=== PATIENT | female | born 1960 | race African-American/Black ===

== ENCOUNTER → 2016-09-25 | Outpatient (CLI) | payer OTHER, MEDICARE | LOC: WI 13:01 | PROVIDERS: ATTEND Physician Assistant | DX: N64.4 Mastodynia (principal) | CPT/HCPCS: 76642; G0204; 77066 ==

== ENCOUNTER 2017-06-23 12:52 | Emergency (ER) | payer OTHER, MEDICARE ==
--- NOTE | 2017-06-23 13:21 | ER Document Report ---
ED Medical Screen (RME) - General Chief Complaint: Shortness Of Breath Stated Complaint: COUGH Time Seen by Provider: 06/23/17 13:13 Notes: This 57-year-old female patient comes emergency room with one-week history of worsening shortness of breath, bloody mucus, pain in the left inferior anterolateral aspect of her chest on breathing. She reports she started with a cloudy sputum that has become bloody. She was seen at an urgent care and told come to the emergency room for evaluation. Her past history includes primary sclerosing cholangitis, rheumatoid arthritis, osteoarthritis, and asthma. She denies being on any antiplatelet medications or blood thinners. She reports she is on several medications but can only remember the names of a few of them. I have greeted and performed a rapid initial assessment of this patient. A comprehensive ED assessment and evaluation of the patient, analysis of test results and completion of the medical decision making process will be conducted by additional ED providers. TRAVEL OUTSIDE OF THE [place] IN LAST 30 DAYS: No - Related Data Allergies/Adverse Reactions: metronidazole [From Flagyl] Allergy (Verified 06/23/17 12:53) Metronidazole HCl [From Flagyl] Allergy (Verified 06/23/17 12:53) propoxyphene napsylate [From Darvocet-N 100] Allergy (Verified 06/23/17 12:53) Past Medical History - Past Medical History Cardiac Medical History: Reports: Hx Hypercholesterolemia Pulmonary Medical History: Reports: Hx Asthma Renal/ Medical History: Denies: Hx Peritoneal Dialysis GI Medical History: Reports: Hx Liver Failure Musculoskeltal Medical History: Reports Hx Arthritis - RA, OA Past Surgical History: Reports: Hx Hysterectomy - partial - Immunizations Hx Diphtheria, Pertussis, Tetanus Vaccination: No Physical Exam - Vital signs Vitals: Temp Pulse Resp BP Pulse Ox 98.2 F 99 16 135/89 H 100 06/23/17 13:05 06/23/17 13:05 06/23/17 13:05 06/23/17 13:05 06/23/17 13:05 Course - Vital Signs Vital signs: Temp Pulse Resp BP Pulse Ox 98.2 F 99 16 135/89 H 100 06/23/17 13:05 06/23/17 13:05 06/23/17 13:05 06/23/17 13:05 06/23/17 13:05
--- NOTE | 2017-06-23 13:57 | RADIOLOGY REPORT (SQ) ---
EXAM DESCRIPTION: CHEST PA/LAT COMPLETED DATE/TIME: 06/23/2017 1:48 pm REASON FOR STUDY: Left barrett-lateral inferior pleuritic chest pain COMPARISON: CT chest 04/09/2016 Two-view chest 03/29/2015 EXAM PARAMETERS: NUMBER OF VIEWS: two views TECHNIQUE: Digital Frontal and Lateral radiographic views of the chest acquired. RADIATION DOSE: NA LIMITATIONS: none FINDINGS: LUNGS AND PLEURA: No opacities, masses or pneumothorax. No pleural effusion. MEDIASTINUM AND HILAR STRUCTURES: No masses or contour abnormalities. HEART AND VASCULAR STRUCTURES: Heart normal size. No evidence for failure. BONES: Osteopenic, no acute changes HARDWARE: Endoscopically placed biliary stent in the right upper quadrant OTHER: No other significant finding. IMPRESSION: NO SIGNIFICANT RADIOGRAPHIC FINDING IN THE CHEST. TECHNICAL DOCUMENTATION: JOB ID: [id number] [employer]- All Rights Reserved
[2017-06-23 14:33] LABS: ABSOLUTE EOSINOPHILS # (AUTO) 0.4 10^3/uL (0.0-0.6); ABSOLUTE LYMPHOCYTES (AUTO) 1.2 10^3/uL (0.5-4.7); ABSOLUTE MONOCYTES (AUTO) 0.6 10^3/uL (0.1-1.4); ABSOLUTE NEUT (AUTO) 4.2 10^3/uL (1.7-8.2); BASOPHILS % (AUTO) 0.7 % (0-2); EOSINOPHILS % (AUTO) 6.8 % (0-6); HEMATOCRIT 39.6 % (36.0-47.0); HEMOGLOBIN 13.8 g/dL (12.0-15.5); HGB HCT DIFFERENCE 1.8; LYMPHOCYTES % (AUTO) 18.4 % (13-45); MEAN CORPUSCULAR HEMOGLOBIN 29.4 pg (27.0-33.4); MEAN CORPUSCULAR HGB CONC 34.9 g/dL (32.0-36.0); MEAN CORPUSCULAR VOLUME 85 fl (80-97); MONOCYTES % (AUTO) 9.7 % (3-13); RED BLOOD COUNT 4.69 10^6/uL (3.72-5.28); RED CELL DISTRIBUTION WIDTH 16.4 % (11.5-14.0); SEGMENTED NEUTROPHILS % (AUTO) 64.4 % (42-78); WHITE BLOOD COUNT 6.6 10^3/uL (4.0-10.5)
[2017-06-23 14:35] LABS: PROTHROMBIN TIME 14.1 SEC (11.4-15.4)
[2017-06-23 14:38] LABS: D-DIMER 2.38 ug/mL (0.00-0.50)
[2017-06-23 14:59] LABS: ALANINE AMINOTRANSFERASE 18 U/L (9-52); ALBUMIN 4.2 g/dL (3.5-5.0); ALKALINE PHOSPHATASE 423 U/L (38-126); ANION GAP 14 (5-19); ASPARTATE AMINO TRANSFERASE 54 U/L (14-36); BILIRUBIN,DIRECT 1.1 mg/dL (0.0-0.4); BILIRUBIN,TOTAL 1.8 mg/dL (0.2-1.3); BLOOD UREA NITROGEN 8 mg/dL (7-20); CALCIUM 9.5 mg/dL (8.4-10.2); CARBON DIOXIDE 23 mmol/L (22-30); CHLORIDE 107 mmol/L (98-107); CREATININE RESULT 0.87 mg/dL (0.52-1.25); GLUCOSE 82 mg/dL (75-110); MAGNESIUM 1.9 mg/dL (1.6-2.3); POTASSIUM 3.7 mmol/L (3.6-5.0); TOTAL PROTEIN 10.3 g/dL (6.3-8.2)
--- NOTE | 2017-06-23 15:42 | ER Document Report ---
ED General - General Chief Complaint: Shortness Of Breath Stated Complaint: COUGH Time Seen by Provider: 06/23/17 13:13 Mode of Arrival: Ambulatory Information source: Patient Notes: 57-year-old female history of asthma presents with complaints of cough shortness of breath. Patient notes she has been coughing for years has seen a investor relations specialist for this. Notes over the past week her white thick mucus has worsened and is now blood-tinged. Patient denies any fevers or chills denies any nausea vomiting or diarrhea Patient admits that it hurts in the left lower lobe TRAVEL OUTSIDE OF THE [place] IN LAST 30 DAYS: No - HPI Onset: Last week Onset/Duration: Worse Quality of pain: Sharp Severity: Mild Pain Level: 1 Associated symptoms: Productive cough, Shortness of breath Exacerbated by: Denies Relieved by: Denies Similar symptoms previously: Yes Recently seen / treated by doctor: Yes - Related Data Allergies/Adverse Reactions: metronidazole [From Flagyl] Allergy (Verified 06/23/17 12:53) Metronidazole HCl [From Flagyl] Allergy (Verified 06/23/17 12:53) propoxyphene napsylate [From Darvocet-N 100] Allergy (Verified 06/23/17 12:53) Past Medical History - Social History Smoking Status: Former Smoker Cigarette use (# per day): No Chew tobacco use (# tins/day): No Smoking Education Provided: No Family History: None, Reviewed & Not Pertinent Patient has suicidal ideation: No Patient has homicidal ideation: No - Past Medical History Cardiac Medical History: Reports: Hx Hypercholesterolemia Pulmonary Medical History: Reports: Hx Asthma Renal/ Medical History: Denies: Hx Peritoneal Dialysis GI Medical History: Reports: Hx Liver Failure Musculoskeltal Medical History: Reports Hx Arthritis - RA, OA Past Surgical History: Reports: Hx Hysterectomy - partial - Immunizations Hx Diphtheria, Pertussis, Tetanus Vaccination: No Hx Pneumococcal Vaccination: 07/08/10 Review of Systems - Review of Systems Notes: REVIEW OF SYSTEMS: CONSTITUTIONAL : Denies fever, chills, or sweats. Denies recent illness. EENT: Denies eye, ear, throat, or mouth pain or symptoms. Denies nasal or sinus congestion or discharge. Denies throat, tongue, or mouth swelling or difficulty swallowing. CARDIOVASCULAR: Denies chest pain. Denies palpitations or racing or irregular heart beat. Denies ankle edema. RESPIRATORY: Admits to cough shortness of breath bloody sputum GASTROINTESTINAL: Denies abdominal pain or distention. Denies nausea, vomiting , or diarrhea. Denies blood in vomitus, stools, or per rectum. Denies black, tarry stools. Denies constipation. GENITOURINARY: Denies difficulty urinating, painful urination, burning, frequency, blood in urine, or discharge. FEMALE GENITOURINARY: Denies vaginal bleeding, heavy or abnormal periods, irregular periods. Denies vaginal discharge or odor. MUSCULOSKELETAL: Denies back or neck pain or stiffness. Denies joint pain or swelling. SKIN: Denies rash, lesions or sores. HEMATOLOGIC : Denies easy bruising or bleeding. LYMPHATIC: Denies swollen, enlarged glands. NEUROLOGICAL: Denies confusion or altered mental status. Denies passing out or loss of consciousness. Denies dizziness or lightheadedness. Denies headache. Denies weakness or paralysis or loss of use of either side. Denies problems with gait or speech. Denies sensory loss, numbness, or tingling. Denies seizures. PSYCHIATRIC: Denies anxiety or stress. Denies depression, suicidal ideation, or homicidal ideation. ALL OTHER SYSTEMS REVIEWED AND NEGATIVE. PHYSICAL EXAMINATION: GENERAL: Well-appearing, well-nourished and in no acute distress. HEAD: Atraumatic, normocephalic. EYES: Pupils equal round and reactive to light, extraocular movements intact, conjunctiva are normal. ENT: Nares patent, oropharynx clear without exudates. Moist mucous membranes. NECK: Normal range of motion, supple without lymphadenopathy LUNGS: Breath sounds clear to auscultation bilaterally and equal. No wheezes rales or rhonchi. HEART: Regular rate and rhythm without murmurs ABDOMEN: Soft, nontender, nondistended abdomen. No guarding, no rebound. No masses appreciated. Female : deferred Musculoskeletal: Normal range of motion, no pitting or edema. No cyanosis. NEUROLOGICAL: Cranial nerves grossly intact. Normal speech, normal gait. Normal sensory, motor exams PSYCH: Normal mood, normal affect. SKIN: Warm, Dry, normal turgor, no rashes or lesions noted. Dictation was performed using [employer] voice recognition software Physical Exam - Vital signs Vitals: Temp Pulse Resp BP Pulse Ox 98.2 F 99 16 135/89 H 100 06/23/17 13:05 06/23/17 13:05 06/23/17 13:05 06/23/17 13:05 06/23/17 13:05 Course - Re-evaluation Re-evalutation: 06/23/17 15:41 Lab work imaging noted no significant abnormality, d-dimer however was elevated for a CTA has been ordered. Patient is satting 100% on room air vital signs are completely stable 06/23/17 22:48 Patient CTA was noted to be normal, therefore a very low suspicion for any life- threatening issues, I encouraged the patient to follow with her investor relations specialist, to believe the hemoptysis is from all the coughing and will give her a cough suppressant very strict return precautions After performing a Medical Screening Examination, I estimate there is LOW risk for ACUTE CORONARY SYNDROME, PULMONARY EMBOLI, RESPIRATORY FAILURE, SEPSIS OR MENINGITIS, thus I consider the discharge disposition reasonable. I have reevaluated this patient multiple times and no significant life threatening changes are noted. The patient and I have discussed the diagnosis and risks, and we agree with discharging home with close follow-up. We also discussed returning to the Emergency Department immediately if new or worsening symptoms occur. We have discussed the symptoms which are most concerning (e.g., changing or worsening pain, trouble swallowing or breathing, neck stiffness, fever) that necessitate immediate return. - Vital Signs Vital signs: Temp Pulse Resp BP Pulse Ox 98.2 F 99 20 133/83 H 97 06/23/17 13:05 06/23/17 13:05 06/23/17 17:00 06/23/17 17:00 06/23/17 17:00 - Laboratory Result Diagrams: 06/23/17 14:10 06/23/17 14:10 Laboratory results interpreted by me: 06/23/17 06/23/17 06/23/17 14:10 14:10 14:10 RDW 16.4 H Plt Count 79 L Eosinophils % 6.8 H D-Dimer 2.38 H Total Bilirubin 1.8 H Direct Bilirubin 1.1 H AST 54 H Alkaline Phosphatase 423 H Total Protein 10.3 H - Diagnostic Test Radiology reviewed: Image reviewed, Reports reviewed - No acute abnormal Discharge - Discharge Clinical Impression: Cough, Hemoptysis Condition: Stable Disposition: HOME, SELF-CARE Instructions: Cough Suppressant & Expectorant Medications Additional Instructions: Follow up with your physician tomorrow for further care or return to the ED IMMEDIATELY if symptoms worsen or new concerns occur. If you cannot afford to follow up with your primary care physician a list of low cost clinics have been provided at the end of your discharge papers as well. Prescriptions: Benzonatate [Tessalon Perle 100 mg Capsule] 100 mg PO Q8HP PRN #40 cap PRN Reason:
--- NOTE | 2017-06-23 15:59 | RADIOLOGY REPORT (SQ) ---
EXAM DESCRIPTION: CTA CHEST COMPLETED DATE/TIME: 06/23/2017 3:44 pm REASON FOR STUDY: sob COMPARISON: CT chest 04/09/2016 TECHNIQUE: CT scan of the chest performed using helical scanning technique with dynamic intravenous contrast injection. Images reviewed with lung, soft tissue and bone windows. Reconstructed coronal and sagittal MPR images reviewed. Additional 3 dimensional post-processing performed to develop Maximal Intensity Projection images (PA P). All images stored on PACS. All CT scanners at this facility use dose modulation, iterative reconstruction, and/or weight based d osing when appropriate to reduce radiation dose to as low as reasonably achievable (ALARA). [facility]: Dose Right [facility]: CareDose [facility]: Dose Right [facility]: Teradose 4D [facility]: Blueleaf CONTRAST TYPE AND DOSE: contrast/concentration: Isovue 370.00 mg/ml; Total Contrast Delivered: 74.0 ml; Total Saline Delivered: 110.0 ml Contrast bolus adequate for pulmonary arteries and aorta. RENAL FUNCTION: Creatinine 0.87 RADIATION DOSE: CT Rad equipment meets quality standard of care and radiation dose reduction techniq ues were employed. CTDIvol: 18.5 - 33.1 mGy. DLP: 658 mGy-cm. . LIMITATIONS: None. FINDINGS: LUNGS AND PLEURA: No masses, infiltrates, pneumothorax. No pleural effusions, calcificati ons. AORTA AND GREAT VESSELS: No aneurysm. No aortic dissection. HEART: No pericardial effusion. No significant coronary artery calcifications. PULMONARY ARTERIES: No emboli visualized in the main pulmonary arteries or the segmental branches. HILAR AND MEDIASTINAL STRUCTURES: No identified masses or abnormal nodes. HARDWARE: None in the chest. UPPER ABDOMEN: There is an endoscopically placed biliary stent in place. Stable intrahepatic biliary ductal dilatation on the left than right lobe liver. Single 1 cm calcified stone in the gallbladder . Stable splenomegaly. Small hiatal hernia. THYROID AND OTHER SOFT TISSUES: No masses. No adenopathy. BONES: No acute or significant finding. 3D MIPS: Confirm above findings. OTHER: No other significant finding. IMPRESSION: No CT angio evidence of aortic dissection or acute pulmonary emboli. Endoscopically placed stent in the common bile duct and left hepatic duct unchanged. Stable intrahep atic biliary ductal dilatation, and stable splenomegaly. COMMENT: Quality ID # [id number]: Final reports with documentation of one or more dose reduction techniques (e.g., Automated exposure control, adjustment of the mA and/or kV according to patient size, use of iterative reconstruction technique) TECHNICAL DOCUMENTATION: JOB ID: [id number] [employer]- All Rights Reserved
[2017-06-23 17:26] VITALS: BP 133/83
== END 2017-06-23 17:26 | disposition home or self-care (01) ==
LOC: ER 12:52
DX: R05 Cough (principal); R04.2 Hemoptysis; R06.02 Shortness of breath; Z87.891 Personal history of nicotine dependence
CPT/HCPCS: 36415; 71020; 71275; 80053; 83735; 85025; 85379; 85610; 99285

== ENCOUNTER → 2017-10-08 | Outpatient (CLI) | payer OTHER, MEDICARE ==
--- NOTE | 2017-10-08 12:06 | RADIOLOGY REPORT (SQ) ---
EXAM DESCRIPTION: CHEST PA/LATERAL COMPLETED DATE/TIME: 10/08/2017 11:04 am REASON FOR STUDY: COUGH COMPARISON: 06/23/2017 EXAM PARAMETERS: NUMBER OF VIEWS: two views TECHNIQUE: Digital Frontal and Lateral radiographic views of the chest acquired. RADIATION DOSE: NA LIMITATIONS: none FINDINGS: LUNGS AND PLEURA: No opacities, masses or pneumothorax. No pleural effusion. MEDIASTINUM AND HILAR STRUCTURES: No masses or contour abnormalities. HEART AND VASCULAR STRUCTURES: Heart normal size. No evidence for failure. BONES: No acute findings. HARDWARE: None in the chest. OTHER: No other significant finding. IMPRESSION: NO SIGNIFICANT RADIOGRAPHIC FINDING IN THE CHEST. TECHNICAL DOCUMENTATION: JOB ID: [id number] [employer]- All Rights Reserved Reading location - IP/workstation name: [email or web address]
== END ==
LOC: OD 10:42
PROVIDERS: ATTEND Physician Assistant
DX: R05 Cough (principal)
CPT/HCPCS: 71046

== ENCOUNTER → 2018-01-22 | Outpatient (CLI) | payer OTHER, MEDICARE ==
--- NOTE | 2018-01-22 14:33 | RADIOLOGY REPORT (SQ) ---
EXAM DESCRIPTION: FOOT LEFT COMPLETE COMPLETED DATE/TIME: 01/22/2018 2:14 pm REASON FOR STUDY: PAIN IN LEFT FOOT R10.9 UNSPECIFIED ABDOMINAL PAIN M79.672 PAIN IN LEFT FOOT COMPARISON: None. NUMBER OF VIEWS: Three views. TECHNIQUE: AP, lateral and oblique without weight bearing radiographic images acquired of the left f oot. LIMITATIONS: None. FINDINGS: MINERALIZATION: Normal. BONES: No acute fracture or dislocation. No worrisome bone lesions. No significant osteophytes. JOINTS: No erosions. No kerry-articular osteopenia. No chondrocalcinosis. SOFT TISSUES: No swelling. No calcifications. OTHER: No other significant finding. IMPRESSION: NEGATIVE STUDY OF THE LEFT FOOT. NO EXPLANATION FOR PAIN. TECHNICAL DOCUMENTATION: JOB ID: [id number] [employer]- All Rights Reserved Reading location - IP/workstation name: [email or web address]
[2018-01-22 15:17] LABS: BLOOD UREA NITROGEN 7 mg/dL (7-20); CALCIUM 9.1 mg/dL (8.4-10.2); CARBON DIOXIDE 24 mmol/L (22-30); CHLORIDE 107 mmol/L (98-107); GLUCOSE 85 mg/dL (75-110); SODIUM 145.3 mmol/L (137-145)
[2018-01-22 15:18] LABS: ABSOLUTE EOSINOPHILS # (AUTO) 0.3 10^3/uL (0.0-0.6); ABSOLUTE LYMPHOCYTES (AUTO) 0.9 10^3/uL (0.5-4.7); ABSOLUTE MONOCYTES (AUTO) 0.6 10^3/uL (0.1-1.4); ABSOLUTE NEUT (AUTO) 2.1 10^3/uL (1.7-8.2); ALANINE AMINOTRANSFERASE 28 U/L (9-52); ALBUMIN 3.8 g/dL (3.5-5.0); ALKALINE PHOSPHATASE 337 U/L (38-126); ANION GAP 14 (5-19); ASPARTATE AMINO TRANSFERASE 51 U/L (14-36); BASOPHILS % (AUTO) 0.9 % (0-2); BILIRUBIN,DIRECT 1.5 mg/dL (0.0-0.4); BILIRUBIN,TOTAL 2.2 mg/dL (0.2-1.3); C-REACTIVE PROTEIN 20.4 mg/L (<10.0); EOSINOPHILS % (AUTO) 8.6 % (0-6); HEMATOCRIT 38.4 % (36.0-47.0); HEMOGLOBIN 13.3 g/dL (12.0-15.5); LYMPHOCYTES % (AUTO) 23.3 % (13-45); MEAN CORPUSCULAR HEMOGLOBIN 30.6 pg (27.0-33.4); MEAN CORPUSCULAR HGB CONC 34.6 g/dL (32.0-36.0); MEAN CORPUSCULAR VOLUME 88 fl (80-97); MONOCYTES % (AUTO) 14.1 % (3-13); RED BLOOD COUNT 4.35 10^6/uL (3.72-5.28); RED CELL DISTRIBUTION WIDTH 17.6 % (11.5-14.0); SEGMENTED NEUTROPHILS % (AUTO) 53.1 % (42-78); TOTAL CELLS COUNTED % (AUTO) 100 %; TOTAL PROTEIN 9.9 g/dL (6.3-8.2)
[2018-01-22 15:49] LABS: ERYTHROCYTE SEDIMENTATION RATE 98 mm/hr (0-30)
[2018-01-22 15:59] LABS: PLATELET COUNT 64 10^3/uL (150-450)
--- NOTE | 2018-01-22 17:19 | RADIOLOGY REPORT (SQ) ---
EXAM DESCRIPTION: CT ABD/PELVIS WITH IV ORAL COMPLETED DATE/TIME: 01/22/2018 4:55 pm REASON FOR STUDY: UNSPECIFIED ABDOMINAL PAIN R10.9 UNSPECIFIED ABDOMINAL PAIN M79.672 PAIN IN LEFT FOOT COMPARISON: 2014. TECHNIQUE: CT scan of the abdomen and pelvis performed with intravenous and oral contrast using teo maurisio scanning technique with dynamic intravenous contrast injection. Images reviewed with lung, soft t issue, and bone windows. Reconstructed coronal and sagittal MPR images reviewed. Delayed images for e valuation of the urinary system also acquired. All images stored on PACS. All CT scanners at this facility use dose modulation, iterative reconstruction, and/or weight based d osing when appropriate to reduce radiation dose to as low as reasonably achievable (ALARA). [facility]: Dose Right [facility]: CareDose [facility]: Dose Right [facility]: Teradose 4D [facility]: [employer] CONTRAST TYPE AND DOSE: contrast/concentration: Isovue 370.00 mg/ml; Total Contrast Delivered: 93.0 ml; Total Saline Delivered: 59.1 ml RENAL FUNCTION: Creatinine 1.0 RADIATION DOSE: CT Rad equipment meets quality standard of care and radiation dose reduction techniq ues were employed. CTDIvol: 13.0 - 15.1 mGy. DLP: 1431 mGy-cm.. LIMITATIONS: None. FINDINGS: LOWER CHEST: No significant findings. No nodules or infiltrates. LIVER: Chronic duct dilatation in the left hepatic lobe particularly. Mild extension into the right hepatic lobe. The degree of duct dilation looks slightly progressive overall compared to 2015. No d iscrete liver parenchymal lesions are detected. SPLEEN: 16 cm craniocaudal dimension, enlarged. No mass. PANCREAS: No masses. No significant calcifications. No adjacent inflammation or peripancreatic fluid collections. Pancreatic duct not dilated. GALLBLADDER: Mild distention. At least 1 small calcified stone. No wall thickening or pericholecyst ic fluid suggested. No evidence of common duct distention or stones. ADRENAL GLANDS: No significant masses or asymmetry. RIGHT KIDNEY AND URETER: No solid masses. No significant calcification. No hydronephrosis or hydroure ter. LEFT KIDNEY AND URETER: No solid masses. No significant calcification. No hydronephrosis or hydrouret er. AORTA AND VESSELS: No aneurysm. No dissection. Renal arteries, SMA, celiac without stenosis. RETROPERITONEUM: No retroperitoneal adenopathy, hemorrhage or masses. BOWEL AND PERITONEAL CAVITY: No obstruction. No visualized masses. No free fluid. No inflammatory ch anges or thickening of bowel wall. APPENDIX: Not visualized. PELVIS: No significant masses. Normal bladder. No free fluid. ABDOMINAL WALL: No masses. No hernias. BONES: No significant or acute findings. OTHER: No other significant finding. IMPRESSION: 1. Predominantly left intrahepatic bile duct dilatation. Chronicity suggests underlyin g "Benign" etiology. No calcified obstructing duct stones. No large pancreatic or liver or gallblad rosa maria mass detected. Inflammatory and infectious etiologies including primary sclerosing cholangitis a nd recurrent pyogenic cholangitis are possible. The patient has had past biliary instrumentation and stenting (noted on prior studies), presumably such diagnoses have been addressed previously. 2. Sp lenomegaly. This looks new compared to 2015. TECHNICAL DOCUMENTATION: JOB ID: [id number] Quality ID # [id number]: Final reports with documentation of one or more dose reduction techniques (e.g., Au tomated exposure control, adjustment of the mA and/or kV according to patient size, use of iterative reconstruction technique) 2010 [employer]- All Rights Reserved Reading location - IP/workstation name: [email or web address]
== END ==
LOC: RAD 13:43
PROVIDERS: ATTEND Physician Assistant
DX: M79.672 Pain in left foot (principal); R10.9 Unspecified abdominal pain
CPT/HCPCS: 36415; 74177; 80053; 85025; 85652; 86140

== ENCOUNTER 2018-03-02 20:08 | Emergency (ER) | payer OTHER, MEDICARE ==
--- NOTE | 2018-03-02 21:22 | ER Document Report ---
ED Extremity Problem, Upper - General Chief Complaint: Arm Pain Stated Complaint: LEFT ARM PAIN Time Seen by Provider: 03/02/18 21:07 Mode of Arrival: Ambulatory Information source: Patient Notes: 57-year-old female presents to ED for complaint of left wrist pain. She states has been hurting for a week but got much worse tonight when she was found to like the grill and she twisted her wrist and she heard a crack. Patient states the pain is much worse than it usually is. She has rheumatoid and osteoarthritis. Patient is alert and oriented respirations regular and unlabored speaking with full human voice and walks with a even steady gait. TRAVEL OUTSIDE OF THE [place] IN LAST 30 DAYS: No - HPI Patient complains to provider of: Left, Wrist Onset: This evening Recent injury: Yes Where: Home, Outdoors Quality of pain: Sharp, Throbbing Severity of pain: Severe, Constant Pain Level: 5 Context: Other - Stated she has had pain all week then tonight she turned her wrist while she was lighting a grill and she heard a crack and then severe pain Associated symptoms: None Exacerbated by: Movement, Exertion Relieved by: Nothing Similar symptoms previously: No Recently seen / treated by doctor: No - Related Data Allergies/Adverse Reactions: metronidazole [From Flagyl] Allergy (Verified 06/23/17 12:53) Metronidazole HCl [From Flagyl] Allergy (Verified 06/23/17 12:53) propoxyphene napsylate [From Darvocet-N 100] Allergy (Verified 06/23/17 12:53) Past Medical History - General Information source: Patient - Social History Smoking Status: Never Smoker Cigarette use (# per day): No Chew tobacco use (# tins/day): No Smoking Education Provided: No Frequency of alcohol use: None Drug Abuse: None Occupation: Customer service Lives with: Family Family History: None, Reviewed & Not Pertinent Patient has suicidal ideation: No Patient has homicidal ideation: No - Past Medical History Cardiac Medical History: Reports: Hx Hypercholesterolemia Pulmonary Medical History: Reports: Hx Asthma EENT Medical History: Reports: None Neurological Medical History: Reports: None Endocrine Medical History: Reports: None Renal/ Medical History: Reports: None Malignancy Medical History: Reports: None GI Medical History: Reports: Hx Cirrhosis, Hx Gastroesophageal Reflux Disease, Hx Liver Failure, Hx Colonoscopy, Hx Endoscopy Musculoskeletal Medical History: Reports Hx Arthritis - RA, OA, Reports Hx Musculoskeletal Deformity, Reports Hx Musculoskeletal Trauma Skin Medical History: Reports None Psychiatric Medical History: Reports: None Traumatic Medical History: Reports: Hx Fractures - Fifth toe left ulnar Infectious Medical History: Reports: None Past Surgical History: Reports: Hx Breast Surgery - Right breast biopsy, Hx Hysterectomy - partial, Hx Oral Surgery - Immunizations Hx Diphtheria, Pertussis, Tetanus Vaccination: No Hx Pneumococcal Vaccination: 07/08/10 Review of Systems - Review of Systems Constitutional: No symptoms reported EENT: No symptoms reported Cardiovascular: No symptoms reported Respiratory: No symptoms reported Gastrointestinal: No symptoms reported Genitourinary: No symptoms reported Female Genitourinary: No symptoms reported Musculoskeletal: Other - Left wrist pain and swelling Skin: No symptoms reported Hematologic/Lymphatic: No symptoms reported Neurological/Psychological: No symptoms reported -: Yes All other systems reviewed and negative Physical Exam - Vital signs Vitals: Temp Pulse Resp BP Pulse Ox 98.3 F 92 16 123/76 100 03/02/18 20:39 03/02/18 20:39 03/02/18 20:39 03/02/18 20:39 03/02/18 20:39 Interpretation: Normal - General General appearance: Appears well, Alert - HEENT Head: Normocephalic, Atraumatic Eyes: Normal Pupils: PERRL - Respiratory Respiratory status: No respiratory distress Chest status: Nontender Breath sounds: Normal Chest palpation: Normal - Cardiovascular Rhythm: Regular Heart sounds: Normal auscultation Murmur: No - Abdominal Inspection: Normal Distension: No distension Bowel sounds: Normal Tenderness: Nontender Organomegaly: No organomegaly - Back Back: Normal, Nontender - Extremities General upper extremity: Normal temperature General lower extremity: Normal inspection, Nontender, Normal color, Normal ROM , Normal temperature, Normal weight bearing. No: Anneliese's sign Wrist: Tender, Axial load of thumb pain, Limited ROM - Due to pain. No: Abrasion, Deformity, Dislocation, Ecchymosis, Instability, Laceration Hand: Tender, No evidence of human bite, No evidence of FB - Neurological Neuro grossly intact: Yes Cognition: Normal Orientation: AAOx4 Bandy Coma Scale Eye Opening: Spontaneous Annel Coma Scale Verbal: Oriented Annel Coma Scale Motor: Obeys Commands Bandy Coma Scale Total: 15 Speech: Normal Motor strength normal: LUE, RUE, LLE, RLE Sensory: Normal - Psychological Associated symptoms: Normal affect, Normal mood - Skin Skin Temperature: Warm Skin Moisture: Dry Skin Color: Normal Course - Re-evaluation Re-evalutation: 03/03/18 02:21 Patient has a distal fractured ulnar on her x-ray. X-ray discussed with patient and daughter and written report of x-ray given to patient for follow-up with orthopedics. Patient was treated with a ulnar gutter splint and a sling and discharged home. Patient verbalized understanding and agreement with treatment plan. - Vital Signs Vital signs: Temp Pulse Resp BP Pulse Ox 98.0 F 83 16 123/72 96 03/02/18 23:31 03/02/18 23:31 03/02/18 23:31 03/02/18 23:31 03/02/18 23:31 - Diagnostic Test Radiology reviewed: Image reviewed, Reports reviewed Procedures - Immobilization Left Wrist Time completed: 23:10 Immobilizer type: Ulnar, Sling Performed by: PCT Post-Proc Neuro Vasc Exam: Normal Alignment checked and good: Yes Discharge - Discharge Clinical Impression: Distal end of ulna fracture, closed Qualifiers: Encounter type: initial encounter Fracture morphology: unspecified fracture morphology Laterality: left Qualified Code(s): S52.602A - Unspecified fracture of lower end of left ulna, initial encounter for closed fracture Condition: Stable Disposition: HOME, SELF-CARE Additional Instructions: Fracture You have a fracture. The typical broken bone requires only protection and sufficient time for healing. "Setting" is necessary only if the bones are crooked or out of position. The physician will re-assess you periodically to make certain that the bone heals without complications. It's important that you follow the instructions given you. The initial treatment is immobilization, elevation of the injury, and cold packs. Not all fractures require a cast. Depending on the location and type of fracture, immobilization may consist of a splint, cast, sling, bulky dressing , or simply rest. The length of time required for healing depends on the location and type of fracture, and on the age of the patient. The treatment plan the physician has outlined for you is customized to your fracture and health condition. Call the doctor or return at once if pain becomes severe, or if severe swelling or numbness develop. Fracture to the distal ulna on your left hand. Splint Pending Casting Your injury can't be casted until the swelling has subsided. Therefore, a temporary splint has been placed to protect the injury. Full use of an injured area is not possible in a splint. You should follow the doctor's instructions concerning rest, ice, and elevation of the injury. Never do anything which causes pain under the splint. Keep the splint on ALL THE TIME until you return for casting. If there is unexpected severe pain, or numbness, discoloration, or swelling beyond the splint, you should return at once. ICE & ELEVATION: Apply ice packs frequently against the painful area. Many different schedules are recommended, such as "20 minutes on, 20 minutes off" or "one hour ice, two hours rest." If you need to work, you may need to go longer between ice treatments. You should plan to have the area ice packed AT LEAST one- fourth of the time. The ice should be applied over the wrap, tape, or splint, or over a layer of cloth -- not directly against the skin. Some ice bags have a built-in cloth and can be put directly on the skin. Your injured part should be elevated as much as possible over the next 48 hours. Try to keep the injury above the level of the heart. Avoid use of the injured area. Elevation and rest will decrease the swelling. USE OF [id number] IBUPROFEN: Ibuprofen (Advil, Nuprin, Medipren, Motrin IB) is a medication for fever and pain control. In addition, it has anti- inflammatory effects which may be beneficial, especially in the treatment of injuries. It's best to take ibuprofen with food. Persons with ulcer disease or allergy to aspirin should notify their physician of this before taking ibuprofen. Ibuprofen can be given every four to six hours, for a total of four doses daily. Age Pain or fever dose Antiinflammatory dose 6-8 yr 200 mg (1 tab) 200 mg (1 tab) 9-11 yr 200 mg (1 tab) 200-400 mg (1-2 tab) 11-14 yr 200-400 mg (1-2 tab) 400 mg (2 tab) 15-adult 400 mg (2 tab) 600 mg (3 tab) ORAL NARCOTIC MEDICATION: You have been given a [place] disp pack for pain control. This medication is a narcotic. It's best taken with food, as nausea can result if taken on an empty stomach. Don't operate machinery or drive within six hours of taking this medication. Do not combine this medicine with alcohol, or with any medication which can cause sedation (such as cold tablets or sleeping pills) unless you get permission from the physician. Narcotics tend to cause constipation. If possible, drink plenty of fluids and eat a diet high in fiber and fruits. Please be aware that prescription narcotics also have the potential for abuse. People become addicted to these medications because of the general sense of wellbeing that they induce. This feeling along with a significant reduction in tension, anxiety, and aggression provides a stimulating seductive quality to these drugs. Once your pain is under control, we encourage you to discard your unused narcotics. FOLLOW-UP CARE: If you have been referred to a physician for follow-up care, call the physician s office for an appointment as you were instructed or within the next two days. If you experience worsening or a significant change in your symptoms, notify the physician immediately or return to the Emergency Department at any time for re-evaluation. Forms: Return to Work Referrals: OBI NAVARRO PA-C [Primary Care Provider] - Follow up as needed SANA CHILDERS DO [ACTIVE STAFF] - Follow up as needed
--- NOTE | 2018-03-02 22:02 | RADIOLOGY REPORT (SQ) ---
EXAM DESCRIPTION: WRIST LEFT 3 VIEWS COMPLETED DATE/TIME: 03/02/2018 9:29 pm REASON FOR STUDY: pain swelling COMPARISON: None. EXAM PARAMETERS: NUMBER OF VIEWS: Three views. TECHNIQUE: AP, lateral and oblique radiographic images acquired of the left wrist LIMITATIONS: None. FINDINGS: MINERALIZATION: Normal. BONES: Nondisplaced distal ulnar diaphyseal fracture.No other fracture or dislocation. No worrisome bone lesions. JOINTS: No effusion. SOFT TISSUES: No significant soft tissue swelling. No radiopaque foreign body. OTHER: No other significant finding. IMPRESSION: Nondisplaced distal ulnar diaphyseal fracture. TECHNICAL DOCUMENTATION: JOB ID: [id number] [place]-72 2010 [employer]- All Rights Reserved Reading location - IP/workstation name: [email or web address]
[2018-03-02] MEDS ORDERED: HYDROCODONE/ACETAMINOPHEN 5-325 MG (6 TAB/ER DISP) PO PRN (22:42)
[2018-03-02 23:34] VITALS: BP 123/72
== END 2018-03-02 23:31 | disposition home or self-care (01) ==
LOC: ER 20:08
DX: S52.602A Unspecified fracture of lower end of left ulna, initial encounter for closed fracture (principal); M25.532 Pain in left wrist; X50.9XXA Other and unspecified overexertion or strenuous movements or postures, initial encounter; Y93.89 Activity, other specified; Y92.009 Unspecified place in unspecified non-institutional (private) residence as the place of occurrence of the external cause; J45.909 Unspecified asthma, uncomplicated; Z88.6 Allergy status to analgesic agent; Z88.1 Allergy status to other antibiotic agents
CPT/HCPCS: 99283

== ENCOUNTER 2018-03-27 16:03 | Emergency (ER) | payer OTHER, MEDICARE ==
[2018-03-27 16:10] VITALS: BP 112/60
[2018-03-27] MEDS ORDERED: HYDROCODONE/ACETAMINOPHEN 5-325 MG TABLET PO ONE (16:46)
--- NOTE | 2018-03-27 17:06 | ER Document Report ---
ED Respiratory Problem - General Chief Complaint: Productive Cough Stated Complaint: BACK PAIN Time Seen by Provider: 03/27/18 16:33 Mode of Arrival: Ambulatory Notes: Chief complaint: Lower back pain History of complain:( obtained from----patient) 57 years old female presents today with sharp pain over the lower back whenever she coughs. With a history of asthma on and off wheezing. No fever chills. Coughing up sometimes yellow- green sputum. Denies any pain on changing position or sitting up or laying down. Denies any pain or discomfort on walking. Denies constitutional symptoms Onset: As above Duration: Last few days Severity: Mild to moderate Quality: Sharp Context: Chronic history of rheumatoid arthritis, ascending cholangitis Exacerbating factor and relieving factors: Coughing REVIEW OF SYSTEMS: CONSTITUTIONAL : Denies fever, chills, or sweats. Denies recent illness. EENT: Denies eye, ear, throat, or mouth pain or symptoms. Denies nasal or sinus congestion or discharge. Denies throat, tongue, or mouth swelling or difficulty swallowing. CARDIOVASCULAR: Denies chest pain. Denies palpitations or racing or irregular heart beat. Denies ankle edema. RESPIRATORY: Denies cough, cold, or chest congestion. Denies shortness of breath, difficulty breathing, or wheezing. GASTROINTESTINAL: Denies distention. Denies nausea, vomiting, or diarrhea. Denies blood in vomitus, stools, or per rectum. Denies black, tarry stools. Denies constipation. GENITOURINARY: Denies difficulty urinating, painful urination, burning, frequency, blood in urine, or discharge. FEMALE GENITOURINARY: Denies vaginal bleeding, heavy or abnormal periods, irregular periods. Denies vaginal discharge or odor. MUSCULOSKELETAL: Denies back or neck pain or stiffness. Denies joint pain or swelling. SKIN: Denies rash, lesions or sores. HEMATOLOGIC : Denies easy bruising or bleeding. LYMPHATIC: Denies swollen, enlarged glands. NEUROLOGICAL: Denies confusion or altered mental status. Denies passing out or loss of consciousness. Denies dizziness or lightheadedness. Denies headache. Denies weakness or paralysis or loss of use of either side. Denies problems with gait or speech. Denies sensory loss, numbness, or tingling. Denies seizures. PSYCHIATRIC: Denies anxiety or stress. Denies depression, suicidal ideation, or homicidal ideation. ALL OTHER SYSTEMS REVIEWED AND NEGATIVE. PHYSICAL EXAMINATION: GENERAL: Well-appearing, well-nourished and in no acute distress. Obese HEAD: Atraumatic, normocephalic. EYES: Pupils equal round and reactive to light, extraocular movements intact, conjunctiva are normal. ENT: Nares patent, oropharynx clear without exudates. Moist mucous membranes. NECK: Normal range of motion, supple without lymphadenopathy LUNGS: Breath sounds clear to auscultation bilaterally and equal. No wheezes rales or rhonchi. HEART: Regular rate and rhythm without murmurs ABDOMEN: Soft, nontender, nondistended abdomen. No guarding, no rebound. No masses appreciated. Examination of genitals-deferred Musculoskeletal: Normal range of motion, no pitting or edema. No cyanosis. NEUROLOGICAL: Cranial nerves grossly intact. Normal speech, normal gait. Normal sensory, motor exams PSYCH: Normal mood, normal affect. SKIN: Warm, Dry, normal turgor, no rashes or lesions noted. Dictation was performed using [employer] voice recognition software TRAVEL OUTSIDE OF THE [place] IN LAST 30 DAYS: No - Related Data Allergies/Adverse Reactions: metronidazole [From Flagyl] Allergy (Verified 03/27/18 16:03) Metronidazole HCl [From Flagyl] Allergy (Verified 03/27/18 16:03) propoxyphene napsylate [From Darvocet-N 100] Allergy (Verified 03/27/18 16:03) Past Medical History - Social History Smoking Status: Never Smoker Chew tobacco use (# tins/day): No Frequency of alcohol use: None Drug Abuse: None Family History: None, Reviewed & Not Pertinent Patient has suicidal ideation: No Patient has homicidal ideation: No - Past Medical History Cardiac Medical History: Reports: Hx Hypercholesterolemia Pulmonary Medical History: Reports: Hx Asthma Renal/ Medical History: Denies: Hx Peritoneal Dialysis GI Medical History: Reports: Hx Cirrhosis, Hx Gastroesophageal Reflux Disease, Hx Liver Failure, Hx Colonoscopy, Hx Endoscopy Musculoskeletal Medical History: Reports Hx Arthritis - RA, OA, Reports Hx Musculoskeletal Deformity, Reports Hx Musculoskeletal Trauma Traumatic Medical History: Reports: Hx Fractures - Fifth toe left ulnar Past Surgical History: Reports: Hx Breast Surgery - Right breast biopsy, Hx Hysterectomy, Hx Oral Surgery - Immunizations Hx Diphtheria, Pertussis, Tetanus Vaccination: No Hx Pneumococcal Vaccination: 07/08/10 Review of Systems - Review of Systems Notes: Dictated Physical Exam - Vital signs Vitals: Temp Pulse Resp BP Pulse Ox 97.9 F 84 16 112/60 97 03/27/18 16:08 03/27/18 16:08 03/27/18 16:08 03/27/18 16:08 03/27/18 16:08 - Notes Notes: Dictated Course - Vital Signs Vital signs: Temp Pulse Resp BP Pulse Ox 97.9 F 84 16 112/60 97 03/27/18 16:08 03/27/18 16:08 03/27/18 16:08 03/27/18 16:08 03/27/18 16:08 - Diagnostic Test Radiology reviewed: Reports reviewed - Chest chest x-ray reported by radiologist as unremarkable Discharge - Discharge Clinical Impression: Bronchitis Back pain Qualifiers: Back pain location: low back pain Chronicity: unspecified Back pain laterality : bilateral Sciatica presence: without sciatica Qualified Code(s): M54.5 - Low back pain Condition: Fair Disposition: HOME, SELF-CARE Instructions: Low Back Pain ([facility]), Cough Suppressant & Expectorant Medications Prescriptions: Azithromycin [Zithromax Tri-Dean] 500 mg PO DAILY #1 pkg Baclofen [Baclofen 20 Mg Tablet] 20 mg PO TID #30 tablet Guaifenesin/Codeine Phos [Robitussin-AC Syrup 59 ml] 5 ml PO QIDP PRN #90 ml PRN Reason: Referrals: OBI NAVARRO PA-C [Primary Care Provider] - Follow up as needed
--- NOTE | 2018-03-27 17:10 | RADIOLOGY REPORT (SQ) ---
EXAM DESCRIPTION: CHEST 2 VIEWS COMPLETED DATE/TIME: 03/27/2018 4:57 pm REASON FOR STUDY: Cough COMPARISON: 06/23/2017 TECHNIQUE: Frontal and lateral radiographic views of the chest acquired. NUMBER OF VIEWS: Two view. LIMITATIONS: None. FINDINGS: LUNGS AND PLEURA: No pneumothorax. No consolidation or pleural effusion. MEDIASTINUM AND HILAR STRUCTURES: Stable. HEART AND VASCULAR STRUCTURES: Stable. BONES: No acute findings. HARDWARE: None in the chest. OTHER: No other significant finding. IMPRESSION: NO ACUTE FINDINGS. TECHNICAL DOCUMENTATION: JOB ID: [id number] [place]-72 2010 [employer]- All Rights Reserved Reading location - IP/workstation name: [email or web address]
[2018-03-27] MEDS ORDERED: KETOROLAC TROMETHAMINE 60 MG/2 ML SDV IM ONE (17:12)
== END 2018-03-27 17:27 | disposition home or self-care (01) ==
LOC: ER 16:03
DX: J45.909 Unspecified asthma, uncomplicated (principal); M54.5 Low back pain; R05 Cough; M54.9 Dorsalgia, unspecified
CPT/HCPCS: 99283; 96372; 71046; J1885

== ENCOUNTER → 2018-06-17 | Outpatient (CLI) | payer OTHER, MEDICARE ==
--- NOTE | 2018-06-17 13:04 | RADIOLOGY REPORT (SQ) ---
EXAM DESCRIPTION: VENOUS BILATERAL LOWER COMPLETED DATE/TIME: 06/17/2018 12:39 pm REASON FOR STUDY: LOCALIZED EDEMA R60.0 LOCALIZED EDEMA COMPARISON: None. TECHNIQUE: Dynamic and static church scale and color images acquired of both lower extremity venous sy stems. Selected spectral images acquired with additional compression and augmentation maneuvers. Imag es stored on PACS. LIMITATIONS: None. FINDINGS: RIGHT LEG COMMON FEMORAL AND FEMORAL: Normal phasicity, compression and augmentation. No visualized echogenic m aterial on church scale. No defects on color images. POPLITEAL: Normal compression and augmentation. No visualized echogenic material on church scale. No de fects on color images. CALF VESSELS: Normal compression and augmentation. No visualized echogenic material on church scale. No defects on color image. GSV AND SSV: Normal compression. No visualized echogenic material on church scale. No defects on color images. ANY DEEP VENOUS INSUFFICIENCY: Not evaluated. ANY EVIDENCE OF POPLITEAL CYST: No. OTHER: No other significant finding. LEFT LEG COMMON FEMORAL AND FEMORAL: Normal phasicity, compression and augmentation. No visualized echogenic m aterial on church scale. No defects on color images. POPLITEAL: Normal compression and augmentation. No visualized echogenic material on church scale. No de fects on color images. CALF VESSELS: Normal compression and augmentation. No visualized echogenic material on church scale. No defects on color images. GSV AND SSV: Normal compression. No visualized echogenic material on church scale. No defects on color images. ANY DEEP VENOUS INSUFFICIENCY: Not evaluated. ANY EVIDENCE POPLITEAL CYST: No. OTHER: No other significant finding. IMPRESSION: 1. NO EVIDENCE DVT OR SVT IN EITHER LEG. TECHNICAL DOCUMENTATION: JOB ID: [id number] [employer]- All Rights Reserved Reading location - IP/workstation name: [email or web address]
== END ==
LOC: SP 08:54
PROVIDERS: ATTEND Physician Assistant
DX: R60.0 Localized edema (principal)
CPT/HCPCS: 93970

== ENCOUNTER → 2018-06-30 | Outpatient (CLI) | payer OTHER, MEDICARE ==
--- NOTE | 2018-06-30 12:00 | WOMENS IMAGING REPORT ---
EXAM DESCRIPTION: BONE DENSITY HIP/SPINE COMPLETED DATE/TIME: 06/30/2018 11:46 am REASON FOR STUDY: Z78.0 ASYMPTOMATIC MENOPAUSAL STATE Z12.31 ENCNTR SCREEN MAMMOGRAM FOR MALIGNANT NEOPLASM OF LINH Z78.0 ASYMPTOMATIC MENOPAUSAL STATE COMPARISON: None. TECHNIQUE: Dual-Energy X-ray Absorptiometry (DEXA) of the AP Spine and Hip. LIMITATIONS: None. FINDINGS: LUMBAR SPINE: The bone mineral density (BMD) measured from L1-L4 in the AP projection correlates with a T-score of -2.8, which is osteoporosis as defined by the World Health Organization. HIP: The bone mineral density (BMD) measured in the left hip correlates with a T-score of -2.6 in the femo ral neck, which is osteoporosis as defined by the World Health Organization. IMPRESSION: 1. LUMBAR SPINE: OSTEOPOROSIS. 2. HIP: OSTEOPOROSIS. COMMENT: The World Health Organization defines low BMD as follows: T-score: Normal: Greater than -1.0 Osteopenia: Between -1.0 and -2.5 Osteoporosis: Less than -2.5 without fractures Established osteoporosis: Less than -2.5 with fractures In general, you may wish to consider: Diagnosis Treatment Follow-up DEXA Normal BMD Prevention 2-3 years Osteopenia Prevention/Therapy 1-2 years Osteoporosis Therapy Yearly TECHNICAL DOCUMENTATION: JOB ID: [id number]- All Rights Reserved Reading location - IP/workstation name: [email or web address]
--- NOTE | 2018-06-30 12:49 | WOMENS IMAGING REPORT ---
EXAM DESCRIPTION: 3D SCREENING MAMMO BILAT COMPLETED DATE/TIME: 06/30/2018 11:45 am REASON FOR STUDY: SCREENING MAMMO Z12.31 ENCNTR SCREEN MAMMOGRAM FOR MALIGNANT NEOPLASM OF LINH Z78. 0 ASYMPTOMATIC MENOPAUSAL STATE COMPARISON: 2013 to 2016 TECHNIQUE: Standard craniocaudal and mediolateral oblique views of each breast recorded using digita l acquisition and breast tomosynthesis. LIMITATIONS: None. FINDINGS: No masses, calcifications or architectural distortion. No areas of suspicion. Read with the assistance of CAD. .[facility] - R2 Cenova Version 1.3 .[facility] - R2 Cenova Version 1.3 .[facility] - R2 Cenova Version 2.4 .[facility] [place] - R2 Cenova Version 2.4 .[facility] - R2 [employer] Version 9.2 IMPRESSION: NORMAL MAMMOGRAM. BIRADS 1. BREAST DENSITY: b. There are scattered areas of fibroglandular density. BIRAD: 1 NEGATIVE RECOMMENDATION: ROUTINE SCREENING COMMENT: The patient has been notified of the results by letter per SA requirements. Additional no tification policies are in place for contacting patient with suspicious or incomplete findings. Quality ID #[id number]: The [employer] recommends an annual screening mammogram for women aged 40 years or over. This facility utilizes a reminder system to ensure that all patients receive reminder letters, and/or direct phone calls for appointments. This includes reminders for routine scr eening mammograms, diagnostic mammograms, or other Breast Imaging Interventions when appropriate. Th is patient will be placed in the appropriate reminder system. The [employer] (ACR) has developed recommendations for screening MRI of the breast s in certain patient populations, to be used in conjunction with mammography. Breast MRI surveillanc e may be appropriate for women with more than 20% lifetime risk of developing breast cancer as deter mined by genetic testing, significant family history of the disease, or history of mantle radiation f or Hodgkins Disease. ACR Practice Guidelines 2008. DBT Technology DBT is a type of tomographic mammography. With conventional mammography, overlapping breast tissue ma y make lesions difficult to detect, even with good compression. DBT uses an x-ray tube that rotates a round the breast, taking images at different angles. These images are then combined to create thin sl ices of the breast that the radiologist can view as a 3D reconstruction. The [employer] unit can perform full-field digital mammograms (2D imaging); or DBT (3D imaging); or both, in a combination mode that quickly performs both the mammogram and the tomosynthesis scan while the breast is still compressed. PQRS 6045F: Fluoroscopic imaging is not utilized for breast tomosynthesis. TECHNICAL DOCUMENTATION: FINDING NUMBER: (1) ASSESSMENT: (1) JOB ID: [id number] [employer]- All Rights Reserved Reading location - IP/workstation name: [email or web address]-
== END ==
LOC: WI 11:19
PROVIDERS: ATTEND Physician Assistant
DX: Z12.31 Encounter for screening mammogram for malignant neoplasm of breast (principal); Z78.0 Asymptomatic menopausal state
CPT/HCPCS: 77063; 77067; 77080

== ENCOUNTER → 2018-07-25 | Outpatient (CLI) | payer OTHER, MEDICARE ==
--- NOTE | 2018-07-25 12:19 | RADIOLOGY REPORT (SQ) ---
EXAM DESCRIPTION: CHEST 2 VIEWS COMPLETED DATE/TIME: 07/25/2018 12:11 pm REASON FOR STUDY: COUGH COMPARISON: Chest films 03/27/2018, 03/29/2015, 02/07/2013 EXAM PARAMETERS: NUMBER OF VIEWS: two views TECHNIQUE: Digital Frontal and Lateral radiographic views of the chest acquired. RADIATION DOSE: NA LIMITATIONS: none FINDINGS: LUNGS AND PLEURA: Increased interstitial markings at both bases with few Stevenson lines. Tr hui fluid in the fissures. Question mild fluid overload or congestive failure. No dense consolidation worrisome for pneumonia. No pneumothorax. No fluid in the posterior costophr enic sulci. MEDIASTINUM AND HILAR STRUCTURES: No masses or contour abnormalities. HEART AND VASCULAR STRUCTURES: Normal size cardiac silhouette BONES: No acute findings. HARDWARE: None in the chest. OTHER: No other significant finding. IMPRESSION: Question mild fluid overload or congestive failure with Stevenson lines and trace fluid in the major and minor fissures. TECHNICAL DOCUMENTATION: JOB ID: [id number] [employer]- All Rights Reserved Reading location - IP/workstation name: [email or web address]
== END ==
LOC: RAD 11:50
PROVIDERS: ATTEND Physician Assistant
DX: J81.1 Chronic pulmonary edema (principal); R05 Cough
CPT/HCPCS: 71046

== ENCOUNTER 2018-11-20 01:23 | Emergency (ER) | payer OTHER, MEDICARE ==
[2018-11-20] MEDS ORDERED: NORMAL SALINE 1000 ML 1,000 ML IV ONE ×2 (02:20→03:28)
--- NOTE | 2018-11-20 02:24 | ER Document Report ---
ED General - General Chief Complaint: Abdominal Pain Stated Complaint: ABDOMINAL PAIN Time Seen by Provider: 11/20/18 02:15 Primary Care Provider: OBI NAVARRO PA-C [Primary Care Provider] - Follow up as needed Mode of Arrival: Medic Information source: Patient, Emergency Med Personnel, [facility] Records Notes: 58-year-old female with primary biliary cirrhosis, hypertension, hyperlipidemia, liver failure presents via EMS with complaint of right lower quadrant abdominal pain that started this morning. Patient describes the pain as sharp, constant and associated with nausea and vomiting. Patient does state that she undergoes ERCP every 6 months at [place] for her liver failure. Patient denies fever, chills, chest pain, shortness of breath. TRAVEL OUTSIDE OF THE [place] IN LAST 30 DAYS: No - HPI Onset: This morning Onset/Duration: Gradual, Persistent, Worse Quality of pain: Sharp, Stabbing Severity: Moderate Pain Level: 2 Associated symptoms: Nausea, Vomiting Exacerbated by: Denies Relieved by: Denies Similar symptoms previously: Yes Recently seen / treated by doctor: Yes - Related Data Allergies/Adverse Reactions: propoxyphene napsylate [From Darvocet-N 100] Allergy (Intermediate, Verified 11/20/18 05:23) metronidazole [From Flagyl] Allergy (Mild, Verified 11/20/18 05:24) nausea and headache Metronidazole HCl [From Flagyl] Allergy (Mild, Verified 11/20/18 05:24) nausea and headache Past Medical History - General Information source: Patient, Emergency Med Personnel, [facility] Records - Social History Smoking Status: Never Smoker Frequency of alcohol use: None Drug Abuse: None Lives with: Family Family History: None, Reviewed & Not Pertinent Patient has suicidal ideation: No Patient has homicidal ideation: No - Past Medical History Cardiac Medical History: Reports: Hx Hypercholesterolemia Denies: Hx Heart Attack, Hx Hypertension Pulmonary Medical History: Denies: Hx Asthma - MILD RESTRICTIVE LUNG DISEASE, Hx Bronchitis, Hx COPD, Hx Pneumonia Neurological Medical History: Denies: Hx Cerebrovascular Accident, Hx Seizures Renal/ Medical History: Denies: Hx Peritoneal Dialysis GI Medical History: Reports: Hx Cirrhosis, Hx Gastroesophageal Reflux Disease, Hx Liver Failure, Hx Colonoscopy, Hx Endoscopy Musculoskeletal Medical History: Reports Hx Arthritis - RA, OA, Reports Hx Musculoskeletal Deformity, Reports Hx Musculoskeletal Trauma Traumatic Medical History: Reports: Hx Fractures - Fifth toe left ulnar Past Surgical History: Reports: Hx Breast Surgery - Right breast biopsy, Hx Cholecystectomy - stents in bile ducts, Hx Hysterectomy, Hx Oral Surgery - Immunizations Hx Diphtheria, Pertussis, Tetanus Vaccination: No Hx Pneumococcal Vaccination: 07/08/14 Review of Systems - Review of Systems Constitutional: Weakness. denies: Fever EENT: denies: Difficulty swallowing Cardiovascular: denies: Chest pain, Palpitations, Dizziness Respiratory: denies: Cough, Short of breath Gastrointestinal: Abdominal pain, Nausea, Vomiting, Poor fluid intake. denies: Diarrhea, Blood streaked bowels, Poor appetite, Blood in vomit, Black stools Genitourinary: denies: Dysuria, Flank pain Female Genitourinary: No symptoms reported Musculoskeletal: denies: Back pain, Leg swelling Skin: denies: Rash Hematologic/Lymphatic: No symptoms reported Neurological/Psychological: denies: Headaches -: Yes All other systems reviewed and negative Physical Exam - Vital signs Vitals: Resp BP Pulse Ox 22 H 108/75 99 11/20/18 01:29 11/20/18 01:29 11/20/18 01:29 - Notes Notes: GENERAL: Well-appearing, well-nourished and in no acute distress. HEAD: Atraumatic, normocephalic. EYES: Pupils equal round and reactive to light, extraocular movements intact, conjunctiva are normal. ENT: Nares patent, oropharynx clear without exudates. Moist mucous membranes. NECK: Normal range of motion, supple without lymphadenopathy LUNGS: Breath sounds clear to auscultation bilaterally and equal. No wheezes rales or rhonchi. HEART: Tachycardic, regular rhythm, no murmurs. ABDOMEN: Right lower quadrant tenderness with palpation. No guarding, no rebound. No masses appreciated. Female : deferred Musculoskeletal: Normal range of motion, no pitting or edema. No cyanosis. NEUROLOGICAL: Cranial nerves grossly intact. Normal speech, normal gait. Normal sensory, motor exams PSYCH: Normal mood, normal affect. SKIN: Warm, Dry, normal turgor, no rashes or lesions noted. Course - Re-evaluation Re-evalutation: 11/20/18 05:31 Laboratory 11/20/18 11/20/18 11/20/18 02:55 02:55 02:55 WBC 7.5 RBC 3.89 Hgb 11.7 L Hct 33.9 L MCV 87 MCH 30.1 MCHC 34.5 RDW 16.7 H Plt Count 77 L Seg Neutrophils % 78.3 H Lymphocytes % 10.2 L Monocytes % 6.5 Eosinophils % 4.8 Basophils % 0.2 Absolute Neutrophils 5.8 Absolute Lymphocytes 0.8 Absolute Monocytes 0.5 Absolute Eosinophils 0.4 Absolute Basophils 0.0 PT 17.4 H INR 1.35 VBG pH VBG pCO2 VBG HCO3 VBG Base Excess Sodium 140.9 Potassium 4.1 Chloride 107 Carbon Dioxide 24 Anion Gap 10 BUN 9 Creatinine 1.12 Est GFR ( Amer) > 60 Est GFR (Non-Af Amer) 50 L Glucose 100 Lactic Acid Calcium 9.1 Total Bilirubin 2.6 H Direct Bilirubin 1.7 H Neonat Total Bilirubin Not Reportable Neonat Direct Bilirubin Not Reportable Neonat Indirect Bili Not Reportable AST 34 ALT 11 Alkaline Phosphatase 213 H Total Protein 9.7 H Albumin 3.0 L Lipase 569.3 H 11/20/18 11/20/18 02:55 04:30 WBC RBC Hgb Hct MCV MCH MCHC RDW Plt Count Seg Neutrophils % Lymphocytes % Monocytes % Eosinophils % Basophils % Absolute Neutrophils Absolute Lymphocytes Absolute Monocytes Absolute Eosinophils Absolute Basophils PT INR VBG pH 7.35 VBG pCO2 40.5 VBG HCO3 21.7 VBG Base Excess -3.7 Sodium Potassium Chloride Carbon Dioxide Anion Gap BUN Creatinine Est GFR ( Amer) Est GFR (Non-Af Amer) Glucose Lactic Acid 2.3 H Calcium Total Bilirubin Direct Bilirubin Neonat Total Bilirubin Neonat Direct Bilirubin Neonat Indirect Bili AST ALT Alkaline Phosphatase Total Protein Albumin Lipase Temp Pulse Resp BP Pulse Ox 99.0 F 24 H 133/89 H 95 11/20/18 05:28 11/20/18 05:01 11/20/18 05:01 11/20/18 05:01 11/20/18 05:40 58-year-old female with liver failure, primary biliary cirrhosis presents with complaint of nausea, vomiting and abdominal pain that started just prior to arrival. Patient appears toxic, dehydrated and she is in acute distress. IV fluids, morphine, Zofran were administered. CBC is without leukocytosis, anemia. Patient's total and direct bilirubin are elevated. Patient's lipase is greater than 500. Lactate 2.3. CT of the abdomen and pelvis with IV contrast was performed and per Dr. Clayton radiologist it appears that the patient's biliary stent has perforated the duodenum and patient has free air, free fluid and peritonitis. I did speak to my general surgeon Dr. Parks who states that if the patient is a candidate for liver transplant he would prefer that she go to the facility that we will perform that transplant. He is also concerned for the aftercare of the patient as we do not have an area secretary. Patient did receive Zosyn, Flagyl. Daughter and friend are at the bedside while findings were discussed. I did contact the transfer center at [place] as this is where the patient receives her care for her liver failure. General surgeon Dr. Jose E Ramirez recommends ER to ER transfer. I did speak to Dr. Ted Damon who has accepted the patient for transfer to his emergency department. Ground transport would take over 4 hours and do the patient's critical condition she will be flown by [facility]. - Vital Signs Vital signs: Temp Pulse Resp BP Pulse Ox 99.0 F 24 H 133/89 H 95 11/20/18 05:28 11/20/18 05:01 11/20/18 05:01 11/20/18 05:01 - Laboratory Result Diagrams: 11/20/18 02:55 11/20/18 02:55 Laboratory results interpreted by me: 11/20/18 11/20/18 11/20/18 02:55 02:55 02:55 Hgb 11.7 L Hct 33.9 L RDW 16.7 H Plt Count 77 L Seg Neutrophils % 78.3 H Lymphocytes % 10.2 L PT 17.4 H Est GFR (Non-Af Amer) 50 L Lactic Acid Total Bilirubin 2.6 H Direct Bilirubin 1.7 H Alkaline Phosphatase 213 H Total Protein 9.7 H Albumin 3.0 L Lipase 569.3 H 11/20/18 02:55 Hgb Hct RDW Plt Count Seg Neutrophils % Lymphocytes % PT Est GFR (Non-Af Amer) Lactic Acid 2.3 H Total Bilirubin Direct Bilirubin Alkaline Phosphatase Total Protein Albumin Lipase - Diagnostic Test Radiology reviewed: Image reviewed, Reports reviewed - EKG Interpretation by Me EKG shows normal: Sinus rhythm Rate: Tachycardia Rhythm: NSR When compared to previous EKG there are: No significant change Critical Care Note - Critical Care Note Total time excluding time spent on procedures (mins): 45 - Minutes of critical care time spent in direct contact evaluating and reevaluating the patient, treating symptoms, reviewing labs and studies and speaking with family and consultants excluding any procedures Discharge - Discharge Clinical Impression: Peritonitis, Bowel perforation Condition: Critical Disposition: [place] Referrals: OBI NAVARRO PA-C [Primary Care Provider] - Follow up as needed
[2018-11-20] MEDS ORDERED: MORPHINE SULFATE 10 MG/ML INJ IV ONE (02:30)
[2018-11-20] MEDS ORDERED: ONDANSETRON HCL INJ/PF 4 MG/2 ML SDV IV ONE (02:30)
[2018-11-20] MEDS ORDERED: METOCLOPRAMIDE HCL INJ/PF 10 MG/2 ML SDV IV ONE (03:12)
[2018-11-20] MEDS ORDERED: METOCLOPRAMIDE HCL INJ/PF 10 MG/2 ML SDV ONE (03:13)
[2018-11-20 03:14] LABS: INTERNATIONAL RATION (INR) 1.35; PROTHROMBIN TIME 17.4 SEC (11.4-15.4)
[2018-11-20 03:20] LABS: ABSOLUTE EOSINOPHILS # (AUTO) 0.4 10^3/uL (0.0-0.6); ABSOLUTE LYMPHOCYTES (AUTO) 0.8 10^3/uL (0.5-4.7); ABSOLUTE MONOCYTES (AUTO) 0.5 10^3/uL (0.1-1.4); ABSOLUTE NEUT (AUTO) 5.8 10^3/uL (1.7-8.2); BASOPHILS % (AUTO) 0.2 % (0-2); EOSINOPHILS % (AUTO) 4.8 % (0-6); HEMATOCRIT 33.9 % (36.0-47.0); HEMOGLOBIN 11.7 g/dL (12.0-15.5); LYMPHOCYTES % (AUTO) 10.2 % (13-45); MEAN CORPUSCULAR HEMOGLOBIN 30.1 pg (27.0-33.4); MEAN CORPUSCULAR HGB CONC 34.5 g/dL (32.0-36.0); MEAN CORPUSCULAR VOLUME 87 fl (80-97); MONOCYTES % (AUTO) 6.5 % (3-13); RED BLOOD COUNT 3.89 10^6/uL (3.72-5.28); RED CELL DISTRIBUTION WIDTH 16.7 % (11.5-14.0); SEGMENTED NEUTROPHILS % (AUTO) 78.3 % (42-78); TOTAL CELLS COUNTED % (AUTO) 100 %; WHITE BLOOD COUNT 7.5 10^3/uL (4.0-10.5)
[2018-11-20 03:25] LABS: ALANINE AMINOTRANSFERASE 11 U/L (9-52); ALKALINE PHOSPHATASE 213 U/L (38-126); ANION GAP 10 (5-19); ASPARTATE AMINO TRANSFERASE 34 U/L (14-36); BILIRUBIN,DIRECT 1.7 mg/dL (0.0-0.4); BILIRUBIN,TOTAL 2.6 mg/dL (0.2-1.3); BLOOD UREA NITROGEN 9 mg/dL (7-20); CALCIUM 9.1 mg/dL (8.4-10.2); CARBON DIOXIDE 24 mmol/L (22-30); CHLORIDE 107 mmol/L (98-107); GLUCOSE 100 mg/dL (75-110); LIPASE 569.3 U/L (23-300); POTASSIUM 4.1 mmol/L (3.6-5.0); SODIUM 140.9 mmol/L (137-145); TOTAL PROTEIN 9.7 g/dL (6.3-8.2)
[2018-11-20 03:31] LABS: PLATELET COUNT 77 10^3/uL (150-450)
[2018-11-20 04:42] LABS: VENOUS BLOOD BASE EXCESS -3.7 mmol/L; VENOUS BLOOD HCO3 21.7 mmol/L (20-32); VENOUS BLOOD PCO2 40.5 mmHg (35-63); VENOUS BLOOD PH 7.35 (7.30-7.42)
--- NOTE | 2018-11-20 04:52 | RADIOLOGY REPORT (SQ) ---
EXAM DESCRIPTION: XR CHEST 1 VIEW COMPLETED DATE/TME: 11/20/2018 02:20 CLINICAL HISTORY: 58 years, Female, ams COMPARISON: 07/25/2018 chest NUMBER OF VIEWS: 1 TECHNIQUE: Portable chest LIMITATIONS: None. FINDINGS: Heart size is stable. Osteopenia. Low lung volumes. No pneumothorax. Lungs are clear IMPRESSION: No acute cardiopulmonary process copyright 2010 [employer]- All Rights Reserved
[2018-11-20] MEDS ORDERED: PIPERACILLIN/TAZOBACTAM 3.375 GM VIAL IV ONE (04:57)
[2018-11-20] MEDS ORDERED: METRONIDAZOLE 500 MG/NS RTU 500 MG/100 ML RTUPB IV ONE ×2 (05:02→05:19)
--- NOTE | 2018-11-20 05:06 | RADIOLOGY REPORT (SQ) ---
EXAM DESCRIPTION: CT ABDOMEN PELVIS WITH IV CONTRAST COMPLETED DATE/TME: 11/20/2018 02:21 CLINICAL HISTORY: rlq pain COMPARISON: 12/23/2017 TECHNIQUE: CT of the abdomen and pelvis performed following IV administration of 100 mL of Omnipaque 350. DLP: 1747.56 mGycm FINDINGS: Lung Bases: Bibasilar dependent atelectasis. Bones: Degenerative change of the spine. Abdomen: Liver: 2 biliary stents are identified with intrahepatic biliary dilatation. Minimal intrabiliary air. The biliary stent draining the right hepatic lobe terminates in the duodenum. The proximal aspect of the stent draining the left hepatic lobe appears to terminate outside of the duodenal lumen suggesting perforation. There are scattered foci of free intraperitoneal air at this location as well as throughout the right abdomen. There is also free fluid in the abdomen concentrated more so on the right than the left with mesenteric edema. Gallbladder: Wall thickening of the gallbladder with cholelithiasis. Spleen, Pancreas, and Adrenal Glands: Splenomegaly. No abnormalities of the pancreas or adrenal glands. Kidneys: The kidneys have normal size and contour without evidence of solid mass or hydronephrosis. Bosniak class I left renal cyst. Vasculature: The aorta and IVC have normal caliber and position. The portal vein is patent. The proximal visceral and renal arteries are patent. Stomach: Small hiatal hernia. Other: Scattered foci of free intraperitoneal air. Moderate amount of free fluid. Enhancement of the peritoneum. Pelvis: Bladder: Urinary bladder is unremarkable. Bowel: Dilated loops of small bowel in the right lower abdomen without definite transition point. Air identified throughout the colon. Appendix: Normal appendix. Pelvis: Prior hysterectomy. IMPRESSION: 1. The proximal tip of the biliary stent draining the left hepatic lobe appears to have perforated the duodenum with scattered foci of free intraperitoneal air and moderate amount of fluid in the right abdomen as well as right mesenteric inflammatory change. There is also enhancement of the peritoneal lining suggesting peritonitis. 2. There are 2 biliary stents are identified with intra and extrahepatic biliary dilatation. 3. Cholelithiasis with thickening of the gallbladder wall. This may be seen with acute cholecystitis or may be related to inflammation of adjacent structures. 4. Dilated loops of small bowel in the right abdomen with air identified throughout the colon. This may be related to ileus however partial small bowel obstruction cannot completely be excluded. Continued follow-up recommended. 5. Splenomegaly. Urgent finding reported to Dr. Vides at 11/20/2018 4:03 AM CDT This exam was performed according to our departmental dose-optimization program, which includes automated exposure control, adjustment of the mA and/or kV according to patient size and/or use of iterative reconstruction technique.
[2018-11-20] MEDS ORDERED: HYDROMORPHONE HCL INJ/PF 2 MG/ML AMPULE IV ONE (05:57)
--- NOTE | 2018-11-20 06:03 | RADIOLOGY REPORT (SQ) ---
EXAM DESCRIPTION: US ABDOMEN LIMITED COMPLETED DATE/TME: 11/20/2018 04:54 CLINICAL HISTORY: 58 years, Female, liver failure pancreatitis COMPARISON: CT from today's date TECHNIQUE: Limited right upper quadrant ultrasound LIMITATIONS: None. FINDINGS: Nodular, cirrhotic change to the liver. Biliary ductal dilatation and pneumobilia better seen on prior CT. Biliary stents also better seen on CT. Cholelithiasis. The gallbladder wall is mildly thickened at 4 mm. Negative sonographic Perera sign. No pericholecystic fluid. CBD measures 6 mm in diameter. Visualized right kidney unremarkable. Visualized portions of the pancreas, abdominal aorta, inferior vena cava are unremarkable. Trace ascites IMPRESSION: Biliary ductal dilatation and pneumobilia better appreciated on CT. Nodular, cirrhotic change to the liver. Cholelithiasis. copyright 2010 [employer]- All Rights Reserved
[2018-11-20 06:15] LABS: APPEARANCE,URINE CLEAR; BILIRUBIN,URINE NEGATIVE (NEGATIVE); COLOR,URINE YELLOW; GLUCOSE, URINE NEGATIVE (NEGATIVE); KETONES,URINE NEGATIVE (NEGATIVE); LEUKOCYTE ESTERASE,URINE NEGATIVE (NEGATIVE); NITRITE,URINE NEGATIVE (NEGATIVE); PROTEIN,URINE NEGATIVE (NEGATIVE); URINE SPECIFIC GRAVITY 1.024
[2018-11-20 06:26] VITALS: BP 95/63
--- NOTE | 2018-11-20 06:38 | EKG REPORT ---
SEVERITY:- ABNORMAL ECG - SINUS TACHYCARDIA NONSPECIFIC ST-T CHANGES ANTERIOR LEADS : Confirmed by: Paco Sy MD 20-Nov-2018 06:37:45
== END 2018-11-20 06:38 | disposition short-term general hospital (02) ==
LOC: ER 01:23
DX: K65.9 Peritonitis, unspecified (principal); K63.1 Perforation of intestine (nontraumatic); R10.9 Unspecified abdominal pain; R10.31 Right lower quadrant pain; R11.2 Nausea with vomiting, unspecified; I10 Essential (primary) hypertension
CPT/HCPCS: 93005; 99291; 96361; 51702; 96375; 96365; 96367; 36415; 87040; 87086; 83690; 85025; 85610; 80053; 81001; 82803; 83605; 71045; 76705; 74177; 93010; J3490; J2270; J1170; J2405; J7030; J2543

== ENCOUNTER 2018-11-29 18:46 | Inpatient (IN) | payer OTHER, MEDICARE ==
--- NOTE | 2018-11-29 19:12 | ER Document Report ---
ED Medical Screen (RME) - General Chief Complaint: Abnormal Lab Results Stated Complaint: ABNORMAL LABS Time Seen by Provider: 11/29/18 19:05 Primary Care Provider: OBI LAKHANI PA-C [Primary Care Provider] - Follow up as needed Mode of Arrival: Wheelchair Information source: Patient Notes: 58-year-old female presented to ED after her primary care doctor called her and told her that her kidney function was less than 20% and her platelet count was below 10,000. This patient has a history of extensive bile duct problems. She states that the last time they did her ERCP they put stents in her bile duct. She states on November 19 they brought her into the emergency room and did a CAT scan and told her that they had the metal backed her to [place] because 1 of the stents had punctured her duodenum. She states she was in [place] until Saturday and then she had blood drawn at Obi lakhani's office yesterday the results were called today. I have greeted and performed a rapid initial assessment of this patient. A comprehensive ED assessment and evaluation of the patient, analysis of test results and completion of medical decision making process will be conducted by an additional ED providers. Dictation of this chart was performed using voice recognition software; therefore, there may be some unintended grammatical errors. TRAVEL OUTSIDE OF THE [place] IN LAST 30 DAYS: No - Related Data Allergies/Adverse Reactions: propoxyphene napsylate [From Darvocet-N 100] Allergy (Intermediate, Verified 11/29/18 18:47) metronidazole [From Flagyl] Allergy (Mild, Verified 11/29/18 18:47) nausea and headache Metronidazole HCl [From Flagyl] Allergy (Mild, Verified 11/29/18 18:47) nausea and headache Past Medical History - Past Medical History Cardiac Medical History: Reports: Hx Hypercholesterolemia Denies: Hx Heart Attack, Hx Hypertension Pulmonary Medical History: Denies: Hx Asthma - MILD RESTRICTIVE LUNG DISEASE, Hx Bronchitis, Hx COPD, Hx Pneumonia Neurological Medical History: Denies: Hx Cerebrovascular Accident, Hx Seizures Renal/ Medical History: Denies: Hx Peritoneal Dialysis GI Medical History: Reports: Hx Cirrhosis, Hx Gastroesophageal Reflux Disease, Hx Liver Failure, Hx Colonoscopy, Hx Endoscopy Musculoskeltal Medical History: Reports Hx Arthritis - RA, OA, Reports Hx Musculoskeletal Deformity, Reports Hx Musculoskeletal Trauma Traumatic Medical History: Reports: Hx Fractures - Fifth toe left ulnar Past Surgical History: Reports: Hx Breast Surgery - Right breast biopsy, Hx Cholecystectomy - stents in bile ducts, Hx Hysterectomy, Hx Oral Surgery - Immunizations Hx Diphtheria, Pertussis, Tetanus Vaccination: No History of Influenza Vaccine for 04/2017 - 09/2017 Season: Yes Influenza Administration Date for 04/2017 - 09/2017 Season: 04/07/18 Physical Exam - Vital signs Vitals: Temp Pulse Resp BP Pulse Ox 98.4 F 107 H 18 144/81 H 98 11/29/18 18:48 11/29/18 18:48 11/29/18 18:48 11/29/18 18:48 11/29/18 18:48 Course - Vital Signs Vital signs: Temp Pulse Resp BP Pulse Ox 98.4 F 107 H 18 144/81 H 98 11/29/18 18:48 11/29/18 18:48 11/29/18 18:48 11/29/18 18:48 11/29/18 18:48 Doctor's Discharge - Discharge Referrals: OBI LAKHNAI PA-C [Primary Care Provider] - Follow up as needed
[2018-11-29 19:59] LABS: APPEARANCE,URINE SLIGHTLY-CLOUDY; BILIRUBIN,URINE NEGATIVE (NEGATIVE); COLOR,URINE DARK YELLOW; GLUCOSE, URINE NEGATIVE (NEGATIVE); KETONES,URINE NEGATIVE (NEGATIVE); LEUKOCYTE ESTERASE,URINE NEGATIVE (NEGATIVE); NITRITE,URINE NEGATIVE (NEGATIVE); PROTEIN,URINE 30 mg/dL (NEGATIVE); URINE SPECIFIC GRAVITY 1.011; UROBILINOGEN,URINE NEGATIVE mg/dL (<2.0)
[2018-11-29 20:23] LABS: ABSOLUTE EOSINOPHILS # (AUTO) 0.7 10^3/uL (0.0-0.6); ABSOLUTE LYMPHOCYTES (AUTO) 1.4 10^3/uL (0.5-4.7); ABSOLUTE MONOCYTES (AUTO) 1.1 10^3/uL (0.1-1.4); ABSOLUTE NEUT (AUTO) 2.3 10^3/uL (1.7-8.2); BASOPHILS % (AUTO) 0.7 % (0-2); EOSINOPHILS % (AUTO) 12.6 % (0-6); HEMATOCRIT 28.8 % (36.0-47.0); HEMOGLOBIN 9.8 g/dL (12.0-15.5); LYMPHOCYTES % (AUTO) 25.2 % (13-45); MEAN CORPUSCULAR HEMOGLOBIN 28.7 pg (27.0-33.4); MEAN CORPUSCULAR HGB CONC 33.9 g/dL (32.0-36.0); MEAN CORPUSCULAR VOLUME 85 fl (80-97); MONOCYTES % (AUTO) 19.4 % (3-13); RED CELL DISTRIBUTION WIDTH 16.8 % (11.5-14.0); SEGMENTED NEUTROPHILS % (AUTO) 42.1 % (42-78); TOTAL CELLS COUNTED % (AUTO) 100 %; WHITE BLOOD COUNT 5.6 10^3/uL (4.0-10.5)
[2018-11-29 20:39] LABS: ALANINE AMINOTRANSFERASE 12 U/L (9-52); ALBUMIN 2.8 g/dL (3.5-5.0); ALKALINE PHOSPHATASE 147 U/L (38-126); ANION GAP 12 (5-19); ASPARTATE AMINO TRANSFERASE 49 U/L (14-36); BILIRUBIN,DIRECT 2.1 mg/dL (0.0-0.4); BILIRUBIN,TOTAL 2.7 mg/dL (0.2-1.3); BLOOD UREA NITROGEN 15 mg/dL (7-20); CALCIUM 8.6 mg/dL (8.4-10.2); CARBON DIOXIDE 23 mmol/L (22-30); CHLORIDE 104 mmol/L (98-107); GLUCOSE 93 mg/dL (75-110); POTASSIUM 3.1 mmol/L (3.6-5.0); SODIUM 138.5 mmol/L (137-145)
[2018-11-29] MEDS ORDERED: RINGERS SOLUTION,LACTATED 1,000 ML IV ONE (23:28)
--- NOTE | 2018-11-30 00:25 | ER Document Report ---
ED General - General Chief Complaint: Abnormal Lab Results Stated Complaint: ABNORMAL LABS Time Seen by Provider: 11/29/18 19:05 Primary Care Provider: OBI NAVARRO PA-C [Primary Care Provider] - Follow up as needed Mode of Arrival: Wheelchair Notes: Patient is a 58-year-old female past medical history of primary sclerosing cholangitis who presents due to abnormal renal function and platelet labs obtained by her primary care provider yesterday. These labs were obtained as a routine follow-up from her recent hospitalization at [facility]. During the hospitalization the patient had removal of her biliary stents and endoscopic repair of a duodenal perforation. The patient states that she has no symptoms of any kind. States that she was told by her primary care doctor she needed to come to the emergency department due to the degree of her platelet drop as well as now developing renal failure. No history of renal failure in the past although states that her platelets typically stayed between 30 and 40. She denies any abdominal pain. TRAVEL OUTSIDE OF THE [place] IN LAST 30 DAYS: No - HPI Patient complains to provider of: Lab abnormalities Onset: Just prior to arrival Onset/Duration: Constant Quality of pain: No pain Severity: None Pain Level: Denies Associated symptoms: None Exacerbated by: Denies Relieved by: Denies Similar symptoms previously: Yes Recently seen / treated by doctor: Yes - Related Data Allergies/Adverse Reactions: propoxyphene napsylate [From Darvocet-N 100] Allergy (Intermediate, Verified 11/29/18 18:47) metronidazole [From Flagyl] Allergy (Mild, Verified 11/29/18 18:47) nausea and headache Metronidazole HCl [From Flagyl] Allergy (Mild, Verified 11/29/18 18:47) nausea and headache Past Medical History - General Information source: Patient - Social History Smoking Status: Never Smoker Frequency of alcohol use: None Drug Abuse: None Lives with: Family Family History: Reviewed & Not Pertinent Patient has suicidal ideation: No Patient has homicidal ideation: No - Past Medical History Cardiac Medical History: Reports: Hx Hypercholesterolemia Denies: Hx Heart Attack, Hx Hypertension Pulmonary Medical History: Denies: Hx Asthma - MILD RESTRICTIVE LUNG DISEASE, Hx Bronchitis, Hx COPD, Hx Pneumonia Neurological Medical History: Denies: Hx Cerebrovascular Accident, Hx Seizures Renal/ Medical History: Denies: Hx Peritoneal Dialysis GI Medical History: Reports: Hx Cirrhosis, Hx Gastroesophageal Reflux Disease, Hx Liver Failure, Hx Colonoscopy, Hx Endoscopy Musculoskeletal Medical History: Reports Hx Arthritis - RA, OA, Reports Hx Musculoskeletal Deformity, Reports Hx Musculoskeletal Trauma Traumatic Medical History: Reports: Hx Fractures - Fifth toe left ulnar Past Surgical History: Reports: Hx Breast Surgery - Right breast biopsy, Hx Cholecystectomy - stents in bile ducts, Hx Hysterectomy, Hx Oral Surgery - Immunizations Hx Diphtheria, Pertussis, Tetanus Vaccination: No Hx Pneumococcal Vaccination: 07/08/14 Review of Systems - Review of Systems Notes: Constitutional: Negative for fever. HENT: Negative for sore throat. Eyes: Negative for visual changes. Cardiovascular: Negative for chest pain. Respiratory: Negative for shortness of breath. Gastrointestinal: Negative for abdominal pain, vomiting or diarrhea. Genitourinary: Negative for dysuria. Musculoskeletal: Negative for back pain. Skin: Negative for rash. Neurological: Negative for headaches, weakness or numbness. 10 point ROS negative except as marked above and in HPI. Physical Exam - Vital signs Vitals: Temp Pulse Resp BP Pulse Ox 98.4 F 107 H 18 144/81 H 98 11/29/18 18:48 11/29/18 18:48 11/29/18 18:48 11/29/18 18:48 11/29/18 18:48 Interpretation: Tachycardic Notes: PHYSICAL EXAMINATION: GENERAL: Well-appearing, well-nourished and in no acute distress. HEAD: Atraumatic, normocephalic. EYES: Pupils equal round and reactive to light, extraocular movements intact, sclera anicteric, conjunctiva are normal. ENT: nares patent, oropharynx clear without exudates. Moist mucous membranes. NECK: Normal range of motion, supple without lymphadenopathy LUNGS: Breath sounds clear to auscultation bilaterally and equal. No wheezes rales or rhonchi. HEART: Regular rate and rhythm without murmurs ABDOMEN: Soft, nontender, normoactive bowel sounds. No guarding, no rebound. No masses appreciated. EXTREMITIES: Normal range of motion, no pitting or edema. No cyanosis. NEUROLOGICAL: No focal neurological deficits. Moves all extremities spontaneously and on command. PSYCH: Normal mood, normal affect. SKIN: Warm, Dry, normal turgor, no rashes or lesions noted. Course - Re-evaluation Re-evalutation: 11/30/18 00:24 Patient presents with abnormal labs as obtained by her primary care doctor showing thrombocytopenia worse than her baseline and new onset renal failure that appears to be post renal azotemia however she has no evidence of severe distention of her bladder and no hydro-on bedside ultrasound. I did discuss with the teacher vocal on-call at [facility] Dr. Perry who advised that the patient should be monitored as an observation here and receive albumin 25 g twice daily with some IV rehydration and see if this normalizes her renal functions and have recheck of her CBC. I discussed with Dr. Peterson who is requested a repeat CBC. 11/30/18 00:43 Dr. Peterson has accepted the patient for admission. - Vital Signs Vital signs: Temp Pulse Resp BP Pulse Ox 98.4 F 107 H 14 108/59 L 97 11/29/18 18:48 11/29/18 18:48 11/29/18 23:00 11/29/18 23:01 11/29/18 23:01 - Laboratory Result Diagrams: 11/29/18 19:59 11/29/18 19:59 Laboratory results interpreted by me: 11/29/18 11/29/18 11/29/18 19:15 19:59 19:59 RBC 3.40 L Hgb 9.8 L Hct 28.8 L RDW 16.8 H Plt Count 17 L* Monocytes % 19.4 H Eosinophils % 12.6 H Absolute Eosinophils 0.7 H Potassium 3.1 L Creatinine 2.22 H Est GFR ( Amer) 28 L Est GFR (Non-Af Amer) 23 L Total Bilirubin 2.7 H Direct Bilirubin 2.1 H AST 49 H Alkaline Phosphatase 147 H Total Protein 9.0 H Albumin 2.8 L Urine Protein 30 H Urine Blood LARGE H Discharge - Discharge Clinical Impression: Thrombocytopenia, Primary sclerosing cholangitis Condition: Fair Disposition: ADMITTED OBSERVATION Admitting Provider: Nicholas (Hospitalist) Unit Admitted: Medical Floor Referrals: OBI NAVARRO PA-C [Primary Care Provider] - Follow up as needed
[2018-11-30] MEDS ORDERED: IPRATROPIUM/ALBUTEROL 0.5-2.5 MG/3 ML AMPUL NEB PRN (00:40)
[2018-11-30] MEDS ORDERED: SIMETHICONE 80 MG TAB.CHEW PO PRN (00:40)
[2018-11-30] MEDS ORDERED: MAG HYDROX/AL HYDROX/SIMETH SUSP 30 ML UDCUP PO PRN (00:40)
[2018-11-30] MEDS ORDERED: ACETAMINOPHEN 325 MG TABLET PO PRN (00:40)
[2018-11-30] MEDS ORDERED: ALBUMIN HUMAN 500 ML IV ONE (00:47)
[2018-11-30 00:56] LABS: INTERNATIONAL RATION (INR) 1.62
[2018-11-30] MEDS: ALBUMIN HUMAN 5% INJ 25 GM/500 ML BOTTLE IV SCH ×2 (01:03→22:36)
[2018-11-30 01:39] LABS: HEMATOCRIT 24.4 % (36.0-47.0); HEMOGLOBIN 8.5 g/dL (12.0-15.5); MEAN CORPUSCULAR HEMOGLOBIN 29.1 pg (27.0-33.4); MEAN CORPUSCULAR HGB CONC 34.9 g/dL (32.0-36.0); MEAN CORPUSCULAR VOLUME 83 fl (80-97); RED BLOOD COUNT 2.93 10^6/uL (3.72-5.28); RED CELL DISTRIBUTION WIDTH 16.2 % (11.5-14.0); WHITE BLOOD COUNT 4.6 10^3/uL (4.0-10.5)
[2018-11-30 01:41] LABS: PLATELET COUNT 28 10^3/uL (150-450)
[2018-11-30 01:55] LABS: IRON 76.1 ug/dL (37-170); URIC ACID 4.8 mg/dL (2.5-7.5)
[2018-11-30 01:57] LABS: ALANINE AMINOTRANSFERASE 15 U/L (9-52); ALBUMIN 2.8 g/dL (3.5-5.0); ALKALINE PHOSPHATASE 146 U/L (38-126); ANION GAP 15 (5-19); ASPARTATE AMINO TRANSFERASE 46 U/L (14-36); BILIRUBIN,TOTAL 2.7 mg/dL (0.2-1.3); BLOOD UREA NITROGEN 16 mg/dL (7-20); CALCIUM 8.5 mg/dL (8.4-10.2); CARBON DIOXIDE 23 mmol/L (22-30); CHLORIDE 104 mmol/L (98-107); GLUCOSE 94 mg/dL (75-110); POTASSIUM 3.2 mmol/L (3.6-5.0); SODIUM 141.5 mmol/L (137-145); TOTAL PROTEIN 8.8 g/dL (6.3-8.2)
[2018-11-30 02:07] LABS: C-REACTIVE PROTEIN 166.2 mg/L (<10.0)
[2018-11-30] MEDS: NORMAL SALINE 1000 ML 1,000 ML IV PRN ×2 (02:25→22:35)
[2018-11-30 05:20] LABS: PLATELET COUNT 17 10^3/uL (150-450)
[2018-11-30] MEDS ORDERED: HEPARIN SOD (PORCINE) 5,000 UNIT/ML 1 ML SYRINGE SUBCUT SCH (06:00)
--- NOTE | 2018-11-30 06:58 | PDOC H&P ---
History of Present Illness Admission Date/PCP: 11/30/18 00:54 OBI NAVARRO PA-C Patient complains of: Abnormal labs History of Present Illness: IFEANYI ISRAEL is a 58 year old female with a past medical history of primary sclerosing cholangitis who is referred by primary care for abnormal labs indicating thrombocytopenia and acute renal failure. Patient is asymptomatic found to have a creatinine of 2.2, potassium of 3.1, platelets of 17 and a hemoglobin of 9.8 admits to recent Augmentin use for unclear indication. [facility] hepatology Dr. Perry was contacted for today's findings recommending albumin and observation in [facility]. Patient's recent past medical history includes: Angiography with biliary stenting November 04 complicated by duodenal perforation requiring endoscopic repair and removal November 11. Patient had been doing well but admits to dull pain in the left upper quadrant. She denies recent change in her urine. Past Medical History Cardiac Medical History: Reports: Hyperlipidema Denies: Myocardial Infarction, Hypertension Pulmonary Medical History: Denies: Asthma - MILD RESTRICTIVE LUNG DISEASE, Bronchitis, Chronic Obstructive Pulmonary Disease (COPD), Pneumonia Neurological Medical History: Denies: Seizures GI Medical History: Reports: Cirrhosis, Gastroesophageal Reflux Disease Musculoskeltal Medical History: Reports: Arthritis - RA, OA Hematology: Denies: Anemia Past Surgical History Past Surgical History: Reports: Cholecystectomy - stents in bile ducts, Hysterectomy Social History Information Source: Patient, Emergency Med Personnel, [facility] Lives with: Family Smoking Status: Never Smoker Frequency of Alcohol Use: None Drugs: None - Advance Directive Resuscitation Status: Full Code Family History Family History: Hypertension Parental Family History Reviewed: Yes Children Family History Reviewed: Yes Sibling(s) Family History Reviewed.: Yes Medication/Allergy Home Medications: Cholestyramine (with Sugar) [Cholestyramine Powder] 378 gm PO DAILY 02/07/13 Loratadine/Pseudoephedrine [Claritin-D 24 Hour Tablet] 1 each PO DAILY 02/07/13 Omeprazole [Prilosec 20 mg Capsule] 20 mg PO DAILY 02/07/13 Simethicone [Gas-X] 80 mg PO BID PRN 02/07/13 Levofloxacin [Levaquin 750 mg Tablet] 750 mg PO DAILY #7 tablet 02/08/13 Albuterol Sulfate [Ventolin HFA] 2 puff IH Q4HP PRN #17 gm 09/14/13 Benzonatate [Tessalon Perles 100 mg Capsule] 100 mg PO ASDIR PRN #40 capsule 09/14/13 Prednisone [Deltasone 20 mg Tablet] 60 mg PO DAILY #12 tablet 09/14/13 Oxycodone HCl 5 - 10 mg PO Q4HP PRN #15 tablet 05/04/15 Benzonatate [Tessalon Perle 100 mg Capsule] 100 mg PO Q8HP PRN #40 cap 06/23/17 Azithromycin [Zithromax Tri-Dean] 500 mg PO DAILY #1 pkg 03/27/18 Baclofen [Baclofen 20 Mg Tablet] 20 mg PO TID #30 tablet 03/27/18 Guaifenesin/Codeine Phos [Robitussin-AC Syrup 59 ml] 5 ml PO QIDP PRN #90 ml 03/27/18 Allergies/Adverse Reactions: propoxyphene napsylate [From Darvocet-N 100] Allergy (Intermediate, Verified 11/29/18 18:47) metronidazole [From Flagyl] Allergy (Mild, Verified 11/29/18 18:47) nausea and headache Metronidazole HCl [From Flagyl] Allergy (Mild, Verified 11/29/18 18:47) nausea and headache Review of Systems Constitutional: ABSENT: chills, fever(s), headache(s), weight gain, weight loss Eyes: ABSENT: visual disturbances Ears: ABSENT: hearing changes Cardiovascular: ABSENT: chest pain, dyspnea on exertion, edema, orthropnea, palpitations Respiratory: ABSENT: cough, hemoptysis Gastrointestinal: ABSENT: abdominal pain, constipation, diarrhea, hematemesis, hematochezia, nausea, vomiting Genitourinary: ABSENT: dysuria, hematuria Musculoskeletal: ABSENT: joint swelling Integumentary: ABSENT: rash, wounds Neurological: ABSENT: abnormal gait, abnormal speech, confusion, dizziness, focal weakness, syncope Psychiatric: ABSENT: anxiety, depression, homidical ideation, suicidal ideation Endocrine: ABSENT: cold intolerance, heat intolerance, polydipsia, polyuria Hematologic/Lymphatic: ABSENT: easy bleeding, easy bruising Physical Exam Vital Signs: Temp Pulse Resp BP Pulse Ox 98.7 F 92 15 113/70 100 11/30/18 02:29 11/30/18 02:29 11/30/18 02:29 11/30/18 02:29 11/30/18 02:29 Intake & Output 11/28/18 11/29/18 11/30/18 11:59 11:59 11:59 Intake Total 1100 Output Total 600 Balance 500 Weight 87.5 kg General appearance: PRESENT: no acute distress, cooperative. ABSENT: disheveled Head exam: PRESENT: atraumatic, normocephalic Eye exam: PRESENT: conjunctiva pink, EOMI, PERRLA. ABSENT: scleral icterus Ear exam: PRESENT: normal external ear exam Mouth exam: PRESENT: moist, tongue midline Neck exam: ABSENT: carotid bruit, JVD, lymphadenopathy, thyromegaly Respiratory exam: PRESENT: clear to auscultation radha. ABSENT: rales, rhonchi, wheezes Cardiovascular exam: PRESENT: RRR. ABSENT: diastolic murmur, rubs, systolic murmur Pulses: PRESENT: normal dorsalis pedis pul Vascular exam: PRESENT: normal capillary refill GI/Abdominal exam: PRESENT: ascites, diminished bowel sounds, hypoactive bowel sounds - Morning, soft. ABSENT: distended, firm, guarding, tenderness Rectal exam: PRESENT: deferred Extremities exam: PRESENT: full ROM. ABSENT: calf tenderness, clubbing, pedal edema Neurological exam: PRESENT: alert - Has not been, awake, oriented to person, oriented to place, oriented to time, oriented to situation, CN II-XII grossly intact. ABSENT: motor sensory deficit Psychiatric exam: PRESENT: appropriate affect, normal mood. ABSENT: homicidal ideation, suicidal ideation Skin exam: PRESENT: dry, intact, warm. ABSENT: cyanosis, rash Results Laboratory Results: 11/30/18 01:26 11/30/18 01:26 11/29/18 11/29/18 11/29/18 19:15 19:59 19:59 WBC 5.6 RBC 3.40 L Hgb 9.8 L Hct 28.8 L MCV 85 MCH 28.7 MCHC 33.9 RDW 16.8 H Plt Count 17 L* Seg Neutrophils % 42.1 Lymphocytes % 25.2 Monocytes % 19.4 H Eosinophils % 12.6 H Basophils % 0.7 Absolute Neutrophils 2.3 Absolute Lymphocytes 1.4 Absolute Monocytes 1.1 Absolute Eosinophils 0.7 H Absolute Basophils 0.0 Sodium 138.5 Potassium 3.1 L Chloride 104 Carbon Dioxide 23 Anion Gap 12 BUN 15 Creatinine 2.22 H Est GFR ( Amer) 28 L Est GFR (Non-Af Amer) 23 L Glucose 93 Uric Acid Calcium 8.6 Iron Total Bilirubin 2.7 H AST 49 H ALT 12 Alkaline Phosphatase 147 H C-Reactive Protein Total Protein 9.0 H Albumin 2.8 L Urine Color DARK YELLOW Urine Appearance SLIGHTLY-CLOUDY Urine pH 5.0 Ur Specific Lena 1.011 Urine Protein 30 H Urine Glucose (UA) NEGATIVE Urine Ketones NEGATIVE Urine Blood LARGE H Urine Nitrite NEGATIVE Ur Leukocyte Esterase NEGATIVE Urine WBC (Auto) 48 Urine RBC (Auto) 105 11/30/18 11/30/18 11/30/18 01:26 01:26 01:26 WBC 4.6 RBC 2.93 L Hgb 8.5 L Hct 24.4 L MCV 83 MCH 29.1 MCHC 34.9 RDW 16.2 H Plt Count 28 L* Seg Neutrophils % Lymphocytes % Monocytes % Eosinophils % Basophils % Absolute Neutrophils Absolute Lymphocytes Absolute Monocytes Absolute Eosinophils Absolute Basophils Sodium 141.5 Potassium 3.2 L Chloride 104 Carbon Dioxide 23 Anion Gap 15 BUN 16 Creatinine 2.15 H Est GFR ( Amer) 29 L Est GFR (Non-Af Amer) 24 L Glucose 94 Uric Acid 4.8 Calcium 8.5 Iron 76.1 Total Bilirubin 2.7 H AST 46 H ALT 15 Alkaline Phosphatase 146 H C-Reactive Protein 166.2 H Total Protein 8.8 H Albumin 2.8 L Urine Color Urine Appearance Urine pH Ur Specific Lena Urine Protein Urine Glucose (UA) Urine Ketones Urine Blood Urine Nitrite Ur Leukocyte Esterase Urine WBC (Auto) Urine RBC (Auto) 11/30/18 01:26 Creatine Kinase 104 Assessment and Plan - Diagnosis (1) Primary sclerosing cholangitis Is this a current diagnosis for this admission?: Yes Plan: Complicated by recent history and removal of biliary stent, no evidence for acute stasis, observation with albumin, consult Dr. Granger at [facility] hepatology. Follow-up Chem-12 (2) Acute renal failure Is this a current diagnosis for this admission?: Yes Plan: Unclear cause, possible gammopathy. Follow-up UA, nephrology consult, UPEP and SPEP (4) Anemia Is this a current diagnosis for this admission?: Yes Plan: Unclear cause, follow-up anemia work-up. Concern for possible gammopathy. - Time Time Spent with patient: 35 or more minutes - Inpatient Certification Medical Necessity: Need Close Monitoring Due to Risk of Patient Decompensation
--- NOTE | 2018-11-30 08:30 | RADIOLOGY REPORT (SQ) ---
EXAM DESCRIPTION: U/S ABDOMEN COMPLETE W/O DOP COMPLETED DATE/TIME: 11/30/2018 8:18 am REASON FOR STUDY: hypersplenism COMPARISON: 11/20/2018 TECHNIQUE: Dynamic and static grayscale images acquired of the abdomen and recorded on PACS. Additio nal selected color Doppler and spectral images recorded. Note: Study does not meet criteria for complete doppler/duplex scan LIMITATIONS: None. FINDINGS: PANCREAS: No masses. Visualized pancreatic duct normal caliber. LIVER: Sub capsular nodularity. No masses. LIVER VASCULATURE: Normal directional flow of the main portal vein and hepatic veins. GALLBLADDER: Gallstone(s). No pericholecystic fluid. No wall thickening. ULTRASOUND-DETECTED GAMEZ'S SIGN: Negative. INTRAHEPATIC DUCTS AND COMMON DUCT: CBD and intrahepatic ducts normal caliber. No filling defects. INFERIOR VENA CAVA: Normal flow. AORTA: No aneurysm. RIGHT KIDNEY: Normal size. Normal echogenicity. No solid or suspicious masses. No hydronephros is. No calcifications. LEFT KIDNEY: Normal size. Normal echogenicity. No solid or suspicious masses. No hydronephrosi s. No calcifications. SPLEEN: 13 cm. No masses. PERITONEAL AND PLEURAL SPACES: Trace left pleural effusion. OTHER: No other significant finding. IMPRESSION: 1. Cirrhosis. Mild splenomegaly. No ascites. 2. Cholelithiasis. No evidence of acute cholecystitis. TECHNICAL DOCUMENTATION: JOB ID: [id number] [employer]- All Rights Reserved Reading location - IP/workstation name: [email or web address]
[2018-11-30] MEDS: IPRATROPIUM/ALBUTEROL 0.5-2.5 MG/3 ML AMPUL NEB SCH ×2 (08:50→21:17)
[2018-11-30] MEDS: DOCUSATE SODIUM 100 MG CAPSULE PO SCH ×2 (09:55→17:11)
[2018-11-30] MEDS: POTASSI CL 20 MEQ/50 ML RIDER 20 MEQ/50 ML RTUPB IV SCH ×2 (09:56→15:11)
[2018-11-30] MEDS ORDERED: PREDNISONE 20 MG TABLET PO SCH (10:00)
[2018-11-30] MEDS ORDERED: CHOLESTYRAMINE 378 GM PO SCH (10:00)
[2018-11-30] MEDS ORDERED: [UNRECOGNIZED DRUG - OTHER] PO SCH (10:00)
[2018-11-30] MEDS: BACLOFEN 20 MG TABLET PO SCH ×3 (10:07→17:14)
[2018-11-30 10:58] LABS: ABSOLUTE RETICS # 0.031 10^6/uL (0.028-0.122); RETICULOCYTE COUNT (AUTO) 1.05 % (0.66-2.85)
[2018-11-30 11:27] LABS: D-DIMER 17.51 ug/mL (0.00-0.50)
[2018-11-30] MEDS ORDERED: POTASSIUM CHLORIDE 10 MEQ CAPSULE.ER PO ONE (14:45)
[2018-11-30] MEDS ORDERED: ALBUMIN HUMAN 5% INJ 25 GM/500 ML BOTTLE IV ONE (15:15)
--- NOTE | 2018-11-30 17:32 | PDOC PROGRESS REPORT ---
Subjective Progress Note for:: 11/30/18 Subjective:: This is a 58 year old female with a PMH of primary sclerosing cholangitis who was sent to the ER by her PCP due to abnormal labs indicating thrombocytopenia and acute renal failure. Patient is asymptomatic found to have a creatinine of 2.2, potassium of 3.1, platelets of 17 and a hemoglobin of 9.8 admits to recent Augmentin use for unclear indication. [facility] hepatology Dr. Perry was contacted for today's findings who recommended albumin and observation in [facility]. She was admitted earlier this morning. She says she gets annual ERCP for her PSC and had one with biliary stenting on 11/04/18 complicated by duodenal perforation requiring endoscopic repair and subsequent removal on 11/11/18. No acute event overnight. Patient says that when she was admitted recently in [facility], she developed some loose stools but thought this was from laxatives as she did have some constipation and was given some medications there. She denies any recent fever or chills. Denies headache, dizziness. She had some vague abdominal cramping a few days ago but is currently asymptomatic. Will request records from [facility]. Reason For Visit: ARF, THROMBOCYTOPENIA, PSC Physical Exam Vital Signs: Temp Pulse Resp BP Pulse Ox 98.4 F 88 18 101/58 L 100 11/30/18 11:30 11/30/18 11:30 11/30/18 11:30 11/30/18 11:30 11/30/18 11:30 Intake & Output 11/29/18 11/30/18 12/01/18 06:59 06:59 06:59 Intake Total 1100 Output Total 600 1100 Balance 500 -1100 Weight 192 lb 14.472 oz General appearance: PRESENT: no acute distress, well-developed, well-nourished Head exam: PRESENT: atraumatic, normocephalic Eye exam: PRESENT: conjunctiva pink, EOMI, PERRLA. ABSENT: scleral icterus Ear exam: PRESENT: normal external ear exam Mouth exam: PRESENT: moist, tongue midline Neck exam: ABSENT: carotid bruit, JVD, lymphadenopathy, thyromegaly Respiratory exam: PRESENT: clear to auscultation radha. ABSENT: rales, rhonchi, wheezes Cardiovascular exam: PRESENT: RRR. ABSENT: diastolic murmur, rubs, systolic murmur Pulses: PRESENT: normal dorsalis pedis pul GI/Abdominal exam: PRESENT: normal bowel sounds, soft. ABSENT: distended, guarding, mass, organolmegaly, rebound, tenderness Rectal exam: PRESENT: deferred Neurological exam: PRESENT: alert, awake, oriented to person, oriented to place, oriented to time, oriented to situation, CN II-XII grossly intact. ABSENT: motor sensory deficit Results Laboratory Results: 11/30/18 01:26 11/30/18 01:26 11/29/18 11/29/18 11/29/18 19:15 19:59 19:59 WBC 5.6 RBC 3.40 L Hgb 9.8 L Hct 28.8 L MCV 85 MCH 28.7 MCHC 33.9 RDW 16.8 H Plt Count 17 L* Seg Neutrophils % 42.1 Lymphocytes % 25.2 Monocytes % 19.4 H Eosinophils % 12.6 H Basophils % 0.7 Absolute Neutrophils 2.3 Absolute Lymphocytes 1.4 Absolute Monocytes 1.1 Absolute Eosinophils 0.7 H Absolute Basophils 0.0 Retic Count (auto) Absolute Retic Sodium 138.5 Potassium 3.1 L Chloride 104 Carbon Dioxide 23 Anion Gap 12 BUN 15 Creatinine 2.22 H Est GFR ( Amer) 28 L Est GFR (Non-Af Amer) 23 L Glucose 93 Uric Acid Calcium 8.6 Iron Total Bilirubin 2.7 H AST 49 H ALT 12 Alkaline Phosphatase 147 H C-Reactive Protein Total Protein 9.0 H Albumin 2.8 L Urine Color DARK YELLOW Urine Appearance SLIGHTLY-CLOUDY Urine pH 5.0 Ur Specific [place] 1.011 Urine Protein 30 H Urine Glucose (UA) NEGATIVE Urine Ketones NEGATIVE Urine Blood LARGE H Urine Nitrite NEGATIVE Ur Leukocyte Esterase NEGATIVE Urine WBC (Auto) 48 Urine RBC (Auto) 105 11/30/18 11/30/18 11/30/18 01:26 01:26 01:26 WBC 4.6 RBC 2.93 L Hgb 8.5 L Hct 24.4 L MCV 83 MCH 29.1 MCHC 34.9 RDW 16.2 H Plt Count 28 L* Seg Neutrophils % Lymphocytes % Monocytes % Eosinophils % Basophils % Absolute Neutrophils Absolute Lymphocytes Absolute Monocytes Absolute Eosinophils Absolute Basophils Retic Count (auto) Absolute Retic Sodium 141.5 Potassium 3.2 L Chloride 104 Carbon Dioxide 23 Anion Gap 15 BUN 16 Creatinine 2.15 H Est GFR ( Amer) 29 L Est GFR (Non-Af Amer) 24 L Glucose 94 Uric Acid 4.8 Calcium 8.5 Iron 76.1 Total Bilirubin 2.7 H AST 46 H ALT 15 Alkaline Phosphatase 146 H C-Reactive Protein 166.2 H Total Protein 8.8 H Albumin 2.8 L Urine Color Urine Appearance Urine pH Ur Specific [place] Urine Protein Urine Glucose (UA) Urine Ketones Urine Blood Urine Nitrite Ur Leukocyte Esterase Urine WBC (Auto) Urine RBC (Auto) 11/30/18 10:16 WBC RBC Hgb Hct MCV MCH MCHC RDW Plt Count Seg Neutrophils % Lymphocytes % Monocytes % Eosinophils % Basophils % Absolute Neutrophils Absolute Lymphocytes Absolute Monocytes Absolute Eosinophils Absolute Basophils Retic Count (auto) 1.05 Absolute Retic 0.031 Sodium Potassium Chloride Carbon Dioxide Anion Gap BUN Creatinine Est GFR ( Amer) Est GFR (Non-Af Amer) Glucose Uric Acid Calcium Iron Total Bilirubin AST ALT Alkaline Phosphatase C-Reactive Protein Total Protein Albumin Urine Color Urine Appearance Urine pH Ur Specific [place] Urine Protein Urine Glucose (UA) Urine Ketones Urine Blood Urine Nitrite Ur Leukocyte Esterase Urine WBC (Auto) Urine RBC (Auto) 11/30/18 01:26 Creatine Kinase 104 Impressions: Abdomen Ultrasound 11/30/18 00:00 IMPRESSION: 1. Cirrhosis. Mild splenomegaly. No ascites. 2. Cholelithiasis. No evidence of acute cholecystitis. Assessment and Plan - Diagnosis (1) Acute renal failure Is this a current diagnosis for this admission?: Yes Plan: The combination of new onset thrombocytopenia, anemia and acute failure is concerning for TTP and HUS. As mentioned, she had some loose stools on her recent admission at [facility] but reports this was after she was given laxatives. No significant neurologic symptoms. Repeat CBC shows platelets has slightly improved from 17 to 28. She wash[place] shave some mild chronic thrombocytopenia with previous count in the 70s. Hb trended down from 9.8 to 8.5. Previous baseline Hb was 11. Creatinine is up at 2.4 from recent previous baseline of 1. She had a recent CT abdomen and pelvis with no remarkable renal obstructive process. SPEP and UPEP have been sent on admission. She received 2L of fluid bolus in the ER. She is currently on prednisone. Will switch to solumedrol. Will check PT,PTT, fibrinogen and degradation products and D-dimer. Will also send for ADAMTS-13. Will check retic count and LDH level. Will await for further nephrology and hematology input. Repeat BMP and CBC tomorrow. Patient is also on etanercept which can cause anemia and thrombocytopenia but not particularly acute renal failure. (2) Anemia Is this a current diagnosis for this admission?: Yes Plan: As per number 1. (3) Thrombocytopenia Is this a current diagnosis for this admission?: Yes Plan: As per number 1. (4) Primary sclerosing cholangitis Is this a current diagnosis for this admission?: Yes Plan: Recent biliary stent with subsequent removal. Request records form [facility]. - Time Time Spent with patient: 25-34 minutes
[2018-11-30] MEDS: METHYLPREDNISOLONE INJ 40 MG/1 ML SDV IV SCH (22:25)
[2018-12-01 05:50] LABS: ABSOLUTE LYMPHOCYTES (AUTO) 0.7 10^3/uL (0.5-4.7); ABSOLUTE MONOCYTES (AUTO) 0.2 10^3/uL (0.1-1.4); ABSOLUTE NEUT (AUTO) 3.2 10^3/uL (1.7-8.2); BASOPHILS % (AUTO) 0.1 % (0-2); EOSINOPHILS % (AUTO) 0.1 % (0-6); HEMATOCRIT 22.4 % (36.0-47.0); LYMPHOCYTES % (AUTO) 17.1 % (13-45); MEAN CORPUSCULAR HEMOGLOBIN 29.1 pg (27.0-33.4); MEAN CORPUSCULAR HGB CONC 34.4 g/dL (32.0-36.0); MEAN CORPUSCULAR VOLUME 84 fl (80-97); MONOCYTES % (AUTO) 5.5 % (3-13); RED BLOOD COUNT 2.65 10^6/uL (3.72-5.28); RED CELL DISTRIBUTION WIDTH 16.9 % (11.5-14.0); SEGMENTED NEUTROPHILS % (AUTO) 77.2 % (42-78); TOTAL CELLS COUNTED % (AUTO) 100 %; WHITE BLOOD COUNT 4.2 10^3/uL (4.0-10.5)
[2018-12-01 06:06] LABS: HEMOGLOBIN 7.7 g/dL (12.0-15.5); PLATELET COUNT 19 10^3/uL (150-450)
[2018-12-01 06:07] LABS: ALANINE AMINOTRANSFERASE 14 U/L (9-52); ALKALINE PHOSPHATASE 117 U/L (38-126); ANION GAP 11 (5-19); ASPARTATE AMINO TRANSFERASE 33 U/L (14-36); BILIRUBIN,DIRECT 1.4 mg/dL (0.0-0.4); BILIRUBIN,TOTAL 2.3 mg/dL (0.2-1.3); BLOOD UREA NITROGEN 10 mg/dL (7-20); CALCIUM 9.5 mg/dL (8.4-10.2); CARBON DIOXIDE 20 mmol/L (22-30); CHLORIDE 110 mmol/L (98-107); GLUCOSE 139 mg/dL (75-110); POTASSIUM 3.9 mmol/L (3.6-5.0); SODIUM 140.5 mmol/L (137-145); TOTAL PROTEIN 8.6 g/dL (6.3-8.2)
[2018-12-01] MEDS: IPRATROPIUM/ALBUTEROL 0.5-2.5 MG/3 ML AMPUL NEB SCH ×2 (08:23→19:14)
[2018-12-01] MEDS ORDERED: CEFTRIAXONE 1 GM/D5W RTU 1 GM/50 ML RTUPB IV SCH (10:00)
[2018-12-01] MEDS ORDERED: PANTOPRAZOLE SODIUM 40 MG VIAL IV SCH (10:00)
[2018-12-01] MEDS: BACLOFEN 20 MG TABLET PO SCH ×3 (10:02→17:06)
[2018-12-01] MEDS: DOCUSATE SODIUM 100 MG CAPSULE PO SCH ×2 (10:02→17:06)
[2018-12-01] MEDS: METHYLPREDNISOLONE INJ 40 MG/1 ML SDV IV SCH ×2 (10:12→22:08)
[2018-12-01 12:03] LABS: ABSOLUTE RETICS # 0.028 10^6/uL (0.028-0.122); RETICULOCYTE COUNT (AUTO) 1.06 % (0.66-2.85)
[2018-12-01] MEDS: CEFTRIAXONE SODIUM 1,000 MG in DEXTROSE 5%-WATER 50 ML IV SCH (12:59)
[2018-12-01 13:20] LABS: FOLATE 6.55 ng/mL (>2.76)
--- NOTE | 2018-12-01 15:12 | PDOC PROGRESS REPORT ---
Subjective Progress Note for:: 12/01/18 Subjective:: This is a 58 year old female with a PMH of primary sclerosing cholangitis who was sent to the ER by her PCP due to abnormal labs indicating thrombocytopenia and acute renal failure. Patient is asymptomatic found to have a creatinine of 2.2, potassium of 3.1, platelets of 17 and a hemoglobin of 9.8 admits to recent Augmentin use for unclear indication. [facility] hepatology Dr. ePrry was contacted for today's findings who recommended albumin and observation in [facility]. She was admitted earlier this morning. She says she gets annual ERCP for her PSC and had one with biliary stenting on 11/04/18 complicated by duodenal perforation requiring endoscopic repair and subsequent removal on 11/11/18. No acute event overnight. Patient says that when she was admitted recently in [facility], she developed some loose stools but thought this was from laxatives as she did have some constipation and was given some medications there. She denies any recent fever or chills. Denies headache, dizziness. She had some vague abdominal cramping a few days ago but is currently asymptomatic. Will request records from [facility]. 12/01: No acute event overnight. She is comfortable. She denies acute complaint but says she had some mild nosebleed this morning which she report she frequently experiences when her nose gets too dry. No hematuria or dysuria. Platelet trended down to 19 from 28 and Hb to 7.7. from 8.5. Creatinine has recovered with IV fluids and is now back to baseline. Reason For Visit: ARF, THROMBOCYTOPENIA, PSC Physical Exam Vital Signs: Temp Pulse Resp BP Pulse Ox 98.7 F 106 H 17 117/58 L 98 12/01/18 11:42 12/01/18 11:42 12/01/18 11:42 12/01/18 11:42 12/01/18 11:42 Intake & Output 11/30/18 12/01/18 12/02/18 06:59 06:59 06:59 Intake Total 2100 2100 Output Total 600 2300 Balance 1500 -200 Weight 192 lb 14.472 oz 198 lb 6.656 oz General appearance: PRESENT: no acute distress, well-developed, well-nourished Head exam: PRESENT: atraumatic, normocephalic Eye exam: PRESENT: conjunctiva pink, EOMI, PERRLA. ABSENT: scleral icterus Ear exam: PRESENT: normal external ear exam Mouth exam: PRESENT: moist, tongue midline Neck exam: ABSENT: carotid bruit, JVD, lymphadenopathy, thyromegaly Respiratory exam: PRESENT: clear to auscultation radha. ABSENT: rales, rhonchi, wheezes Cardiovascular exam: PRESENT: RRR. ABSENT: diastolic murmur, rubs, systolic murmur Pulses: PRESENT: normal dorsalis pedis pul GI/Abdominal exam: PRESENT: normal bowel sounds, soft. ABSENT: distended, guarding, mass, organolmegaly, rebound, tenderness Rectal exam: PRESENT: deferred Extremities exam: PRESENT: full ROM. ABSENT: calf tenderness, clubbing, pedal edema Neurological exam: PRESENT: alert, awake, oriented to person, oriented to place, oriented to time, oriented to situation, CN II-XII grossly intact. ABSENT: motor sensory deficit Results Laboratory Results: 12/01/18 04:58 12/01/18 04:58 12/01/18 12/01/18 12/01/18 04:58 04:58 04:58 WBC 4.2 RBC 2.65 L Hgb 7.7 L Hct 22.4 L MCV 84 MCH 29.1 MCHC 34.4 RDW 16.9 H Plt Count 19 L* Seg Neutrophils % 77.2 Lymphocytes % 17.1 Monocytes % 5.5 Eosinophils % 0.1 Basophils % 0.1 Absolute Neutrophils 3.2 Absolute Lymphocytes 0.7 Absolute Monocytes 0.2 Absolute Eosinophils 0.0 Absolute Basophils 0.0 Retic Count (auto) 1.06 Absolute Retic 0.028 Sodium 140.5 Potassium 3.9 Chloride 110 H Carbon Dioxide 20 L Anion Gap 11 BUN 10 Creatinine 1.03 Est GFR ( Amer) > 60 Est GFR (Non-Af Amer) 55 L Glucose 139 H Calcium 9.5 Iron TIBC % Saturation Ferritin Total Bilirubin 2.3 H AST 33 ALT 14 Alkaline Phosphatase 117 Total Protein 8.6 H Albumin 3.0 L Vitamin B12 Folate 12/01/18 04:58 WBC RBC Hgb Hct MCV MCH MCHC RDW Plt Count Seg Neutrophils % Lymphocytes % Monocytes % Eosinophils % Basophils % Absolute Neutrophils Absolute Lymphocytes Absolute Monocytes Absolute Eosinophils Absolute Basophils Retic Count (auto) Absolute Retic Sodium Potassium Chloride Carbon Dioxide Anion Gap BUN Creatinine Est GFR ( Amer) Est GFR (Non-Af Amer) Glucose Calcium Iron 73.0 TIBC 161 L % Saturation 45 Ferritin 328.00 H Total Bilirubin AST ALT Alkaline Phosphatase Total Protein Albumin Vitamin B12 > 1000.0 H Folate 6.55 11/30/18 01:26 Creatine Kinase 104 Impressions: Abdomen Ultrasound 11/30/18 00:00 IMPRESSION: 1. Cirrhosis. Mild splenomegaly. No ascites. 2. Cholelithiasis. No evidence of acute cholecystitis. Assessment and Plan - Diagnosis (1) Acute renal failure Is this a current diagnosis for this admission?: Yes Plan: Likely pre renal as creatinine promptly recovered and is now back to baseline with IV hydration. (2) Anemia Is this a current diagnosis for this admission?: Yes Plan: 11/30: The combination of new onset thrombocytopenia, anemia and acute failure is concerning for TTP and HUS. As mentioned, she had some loose stools on her recent admission at [facility] but reports this was after she was given laxatives. No significant neurologic symptoms. Repeat CBC shows platelets has slightly improved from 17 to 28. She [place] shave some mild chronic thrombocytopenia with previous count in the 70s. Hb trended down from 9.8 to 8.5. Previous baseline Hb was 11. Creatinine is up at 2.4 from recent previous baseline of 1. She had a recent CT abdomen and pelvis with no remarkable renal obstructive process. SPEP and UPEP have been sent on admission. She received 2L of fluid bolus in the ER. She is currently on prednisone. Will switch to solumedrol. Will check PT,PTT, fibrinogen and degradation products and D-dimer. Will also send for ADAMTS-13. Will check retic count and LDH level. Will await for further nephrology and hematology input. Repeat BMP and CBC tomorrow. Patient is also on etanercept which can cause anemia and thrombocytopenia but not particularly acute renal failure. 12/01: Clinical picture is not consistent with TTP/HUS. As mentioned, patient is comfortable and denies acute complaints. Her renal function has also quickly recovered with IV fluids overnight and is now back to baseline. Platelet trended down to 19 from 28 and Hb to 7.7. from 8.5. Creatinine has recovered with IV fluids and is now back to baseline. She received her first dose of IV steroids last night. Discussed with hematology. Differentials include hemolytic anemia, ITP, and cytopenias from her advanced liver disease. US Adbomen did reveal cirrhosis from long standing PSC. As mentioned before, she was also on Enbrel which can cause aplastic anemia and thrombocytopenia. Will continue IV steroids for now and continue to reassess response. (3) Thrombocytopenia Is this a current diagnosis for this admission?: Yes Plan: As per number 2. (4) Primary sclerosing cholangitis Is this a current diagnosis for this admission?: Yes Plan: Recent biliary stent with subsequent removal. Awaiting records form [facility]. - Time Time Spent with patient: 25-34 minutes
[2018-12-01] MEDS: SODIUM CHLORIDE NASAL SPRAY 44 ML NASL SCH ×3 (16:35→22:08)
[2018-12-01 17:36] LABS: HEPATITIS A AB IGM Negative (Negative); HEPATITIS B CORE AB IGM Negative (Negative); HEPATITS B SURFACE ANTIGEN Negative (Negative)
--- NOTE | 2018-12-01 17:56 | PDOC CONSULTATION ---
Consultation Consult Date: 12/01/18 Attending physician:: DAVID ROTHMAN Provider Consulted: INNA MARIA Consult reason:: Long-standing history of primary sclerosing cholangitis, with anemia and thrombocytopenia History of Present Illness Admission Date/PCP: 11/30/18 00:54 OIB NAVARRO PA-C Patient complains of: Weakness History of Present Illness: IFEANYI ISRAEL is a 58 year old female who had recent complicated medical history, she has long-standing history of primary sclerosing cholangitis, and resultant cirrhosis, she has been followed by [facility] hepatology, recently about 3 weeks ago she underwent biliary stent replacement, unfortunately after that she came back in to [facility] with severe abdominal pain ultimately was transferred to [facility], she was found that her biliary stent had migrated into the duodenal bulb, and I believe there was some resultant internal bleeding from that. She got out of [facility] just about 4 to 5 days ago and then came back to see her PCP who did labs and told her to come right back to the ER because her platelet count was only 10. Here her platelet count was in the 20s, but unfortunately today is fallen down to 17. She is having some gum bleeding but does not complain of hematochezia or hematemesis. Her hemoglobin was down to 7.7, in our office is usually been between 8.5 and 9, platelet count in our office is been anywhere from 40-60. Past Medical History Cardiac Medical History: Reports: Hyperlipidema Denies: Myocardial Infarction, Hypertension Pulmonary Medical History: Denies: Asthma - MILD RESTRICTIVE LUNG DISEASE, Bronchitis, Chronic Obstructive Pulmonary Disease (COPD), Pneumonia Neurological Medical History: Denies: Seizures GI Medical History: Reports: Cirrhosis, Gastroesophageal Reflux Disease Musculoskeltal Medical History: Reports: Arthritis - RA, OA Hematology: Denies: Anemia Past Surgical History Past Surgical History: Reports: Cholecystectomy - stents in bile ducts, Hysterectomy Social History Lives with: Family Smoking Status: Never Smoker Frequency of Alcohol Use: None Drugs: None - Advance Directive Resuscitation Status: Full Code Family History Family History: Hypertension Parental Family History Reviewed: Yes Children Family History Reviewed: Yes Sibling(s) Family History Reviewed.: Yes Medication/Allergy Home Medications: Acetaminophen [Tylenol 325 mg Tablet] 325 mg PO DAILYP PRN 11/30/18 Albuterol Sulfate [Proair Hfa Inhalation Aerosol 8.5 gm Mdi] 1 puff IH Q4HP PRN 11/30/18 Albuterol Sulfate [Ventolin 0.042% Neb 1.25 mg/3 ml Ampul] 1 vial NEB Q4HP PRN 11/30/18 Benzonatate [Tessalon Perle 100 mg Capsule] 100 mg PO BIDP PRN 11/30/18 Budesonide/Formoterol Fumarate [Symbicort Hfa 160-4.5 Mcg Inhaler 6 gm] 1 puff IH Q12 11/30/18 Cetirizine HCl [Zyrtec 10 mg Tablet] 1 tab PO DAILY 11/30/18 Ciprofloxacin HCl [Cipro 500 mg Tablet] 500 mg PO BID 11/30/18 Cyclobenzaprine HCl [Flexeril 5 mg Tablet] 5 mg PO QHS 11/30/18 Etanercept [Enbrel] 50 mg SQ CROWLEY 11/30/18 Montelukast Sodium [Singulair 10 mg Tablet] 10 mg PO QHS 11/30/18 Omeprazole 20 mg PO DAILY 11/30/18 Propranolol HCl [Inderal 10 mg Tablet] 10 mg PO BID 11/30/18 Rosuvastatin Calcium [Crestor 10 mg Tablet] 10 mg PO DAILY 11/30/18 Ursodiol [Sherri] 250 mg PO TID 11/30/18 Allergies/Adverse Reactions: propoxyphene napsylate [From Darvocet-N 100] Allergy (Intermediate, Verified 11/29/18 18:47) metronidazole [From Flagyl] Allergy (Mild, Verified 11/29/18 18:47) nausea and headache Metronidazole HCl [From Flagyl] Allergy (Mild, Verified 11/29/18 18:47) nausea and headache Review of Systems Constitutional: ABSENT: chills, fever(s), headache(s), weight gain, weight loss Eyes: ABSENT: visual disturbances Ears: ABSENT: hearing changes Cardiovascular: ABSENT: chest pain, dyspnea on exertion, edema, orthropnea, palpitations Respiratory: ABSENT: cough, hemoptysis Gastrointestinal: ABSENT: abdominal pain, constipation, diarrhea, hematemesis, hematochezia, nausea, vomiting Genitourinary: ABSENT: dysuria, hematuria Musculoskeletal: ABSENT: joint swelling Integumentary: ABSENT: rash, wounds Neurological: ABSENT: abnormal gait, abnormal speech, confusion, dizziness, focal weakness, syncope Psychiatric: ABSENT: anxiety, depression, homidical ideation, suicidal ideation Endocrine: ABSENT: cold intolerance, heat intolerance, polydipsia, polyuria Hematologic/Lymphatic: ABSENT: easy bleeding, easy bruising Physical Exam Vital Signs: Temp Pulse Resp BP Pulse Ox 97.8 F 80 18 119/56 L 93 12/01/18 16:00 12/01/18 16:00 12/01/18 16:00 12/01/18 16:00 12/01/18 16:00 Intake & Output 11/30/18 12/01/18 12/02/18 06:59 06:59 06:59 Intake Total 2100 2100 50 Output Total 600 2300 Balance 1500 -200 50 Weight 87.5 kg 90 kg General appearance: PRESENT: no acute distress, well-developed, well-nourished Head exam: PRESENT: atraumatic, normocephalic Eye exam: PRESENT: conjunctiva pink, EOMI, PERRLA. ABSENT: scleral icterus Ear exam: PRESENT: normal external ear exam Mouth exam: PRESENT: moist, tongue midline Neck exam: ABSENT: carotid bruit, JVD, lymphadenopathy, thyromegaly Respiratory exam: PRESENT: clear to auscultation radha. ABSENT: rales, rhonchi, wheezes Cardiovascular exam: PRESENT: RRR. ABSENT: diastolic murmur, rubs, systolic murmur Pulses: PRESENT: normal dorsalis pedis pul Vascular exam: PRESENT: normal capillary refill GI/Abdominal exam: PRESENT: normal bowel sounds, soft. ABSENT: distended, guarding, mass, organolmegaly, rebound, tenderness Rectal exam: PRESENT: deferred Extremities exam: PRESENT: full ROM. ABSENT: calf tenderness, clubbing, pedal edema Neurological exam: PRESENT: alert, awake, oriented to person, oriented to place, oriented to time, oriented to situation, CN II-XII grossly intact. ABSENT: motor sensory deficit Psychiatric exam: PRESENT: appropriate affect, normal mood. ABSENT: homicidal ideation, suicidal ideation Skin exam: PRESENT: dry, intact, warm. ABSENT: cyanosis, rash Results Laboratory Results: 12/01/18 04:58 12/01/18 04:58 12/01/18 12/01/18 12/01/18 04:58 04:58 04:58 WBC 4.2 RBC 2.65 L Hgb 7.7 L Hct 22.4 L MCV 84 MCH 29.1 MCHC 34.4 RDW 16.9 H Plt Count 19 L* Seg Neutrophils % 77.2 Lymphocytes % 17.1 Monocytes % 5.5 Eosinophils % 0.1 Basophils % 0.1 Absolute Neutrophils 3.2 Absolute Lymphocytes 0.7 Absolute Monocytes 0.2 Absolute Eosinophils 0.0 Absolute Basophils 0.0 Retic Count (auto) 1.06 Absolute Retic 0.028 Sodium 140.5 Potassium 3.9 Chloride 110 H Carbon Dioxide 20 L Anion Gap 11 BUN 10 Creatinine 1.03 Est GFR ( Amer) > 60 Est GFR (Non-Af Amer) 55 L Glucose 139 H Calcium 9.5 Iron TIBC % Saturation Ferritin Total Bilirubin 2.3 H AST 33 ALT 14 Alkaline Phosphatase 117 Total Protein 8.6 H Albumin 3.0 L Vitamin B12 Folate 12/01/18 04:58 WBC RBC Hgb Hct MCV MCH MCHC RDW Plt Count Seg Neutrophils % Lymphocytes % Monocytes % Eosinophils % Basophils % Absolute Neutrophils Absolute Lymphocytes Absolute Monocytes Absolute Eosinophils Absolute Basophils Retic Count (auto) Absolute Retic Sodium Potassium Chloride Carbon Dioxide Anion Gap BUN Creatinine Est GFR ( Amer) Est GFR (Non-Af Amer) Glucose Calcium Iron 73.0 TIBC 161 L % Saturation 45 Ferritin 328.00 H Total Bilirubin AST ALT Alkaline Phosphatase Total Protein Albumin Vitamin B12 > 1000.0 H Folate 6.55 11/30/18 01:26 Creatine Kinase 104 Impressions: Abdomen Ultrasound 11/30/18 00:00 IMPRESSION: 1. Cirrhosis. Mild splenomegaly. No ascites. 2. Cholelithiasis. No evidence of acute cholecystitis. Assessment & Plan - Diagnosis (1) Thrombocytopenia Is this a current diagnosis for this admission?: Yes Plan: Multifactorial, secondary in part to liver disease but may also be ITP, patient has been on high-dose steroids now for about 48 hours. We will up to see how her platelet count does by day 3 or 4. We should see a response to steroids if it is ITP. Patient did not really have signs or symptoms of TTP. LDH is normal so hemolysis becomes less likely. More likely to be some element of DIC as well from the recent circumstances of biliary stent migration causing pancreatitis and possible bleeding. (2) Anemia Qualifiers: Anemia type: other cause Other causes of anemia: chronic disease, other Qualified Code(s): D63.8 - Anemia in other chronic diseases classified elsewhere Is this a current diagnosis for this admission?: Yes Plan: Anemia of chronic disease, ferritin and saturation was normal, could be because of recent bleeding. But reticulocyte count and LDH are normal so hemolyzed is unlikely and this would not point to bleeding. Probably is largely anemia of chronic disease.
[2018-12-02 05:10] LABS: ABSOLUTE LYMPHOCYTES (AUTO) 0.7 10^3/uL (0.5-4.7); ABSOLUTE MONOCYTES (AUTO) 0.5 10^3/uL (0.1-1.4); ABSOLUTE NEUT (AUTO) 5.3 10^3/uL (1.7-8.2); BASOPHILS % (AUTO) 0.1 % (0-2); HEMATOCRIT 21.3 % (36.0-47.0); LYMPHOCYTES % (AUTO) 10.2 % (13-45); MEAN CORPUSCULAR HEMOGLOBIN 28.8 pg (27.0-33.4); MEAN CORPUSCULAR HGB CONC 34.3 g/dL (32.0-36.0); MEAN CORPUSCULAR VOLUME 84 fl (80-97); MONOCYTES % (AUTO) 8.3 % (3-13); RED BLOOD COUNT 2.54 10^6/uL (3.72-5.28); RED CELL DISTRIBUTION WIDTH 16.8 % (11.5-14.0); SEGMENTED NEUTROPHILS % (AUTO) 81.4 % (42-78); TOTAL CELLS COUNTED % (AUTO) 100 %; WHITE BLOOD COUNT 6.5 10^3/uL (4.0-10.5)
[2018-12-02 05:17] LABS: HEMOGLOBIN 7.3 g/dL (12.0-15.5); PLATELET COUNT 33 10^3/uL (150-450)
[2018-12-02 05:25] LABS: ANION GAP 9 (5-19); BLOOD UREA NITROGEN 14 mg/dL (7-20); CALCIUM 9.7 mg/dL (8.4-10.2); CARBON DIOXIDE 21 mmol/L (22-30); CHLORIDE 111 mmol/L (98-107); GLUCOSE 131 mg/dL (75-110); POTASSIUM 4.3 mmol/L (3.6-5.0); SODIUM 140.5 mmol/L (137-145)
--- NOTE | 2018-12-02 07:50 | PDOC PROGRESS REPORT ---
Subjective Progress Note for:: 12/02/18 Subjective:: Patient is feeling better, platelets are little bit higher 33 however hemoglobin is 7.3. Reason For Visit: ARF, THROMBOCYTOPENIA, PSC Physical Exam Vital Signs: Temp Pulse Resp BP Pulse Ox 98.1 F 92 16 133/62 H 95 12/01/18 23:15 12/01/18 23:15 12/01/18 23:15 12/01/18 23:15 12/01/18 23:15 Intake & Output 12/01/18 12/02/18 12/03/18 06:59 06:59 06:59 Intake Total 2100 1426 Output Total 2300 1450 Balance -200 -24 Weight 90 kg 90 kg General appearance: PRESENT: no acute distress, well-developed, well-nourished Head exam: PRESENT: atraumatic, normocephalic Eye exam: PRESENT: conjunctiva pink, EOMI, PERRLA. ABSENT: scleral icterus Ear exam: PRESENT: normal external ear exam Mouth exam: PRESENT: moist, tongue midline Neck exam: ABSENT: carotid bruit, JVD, lymphadenopathy, thyromegaly Respiratory exam: PRESENT: clear to auscultation radha. ABSENT: rales, rhonchi, wheezes Cardiovascular exam: PRESENT: RRR. ABSENT: diastolic murmur, rubs, systolic murmur Pulses: PRESENT: normal dorsalis pedis pul Vascular exam: PRESENT: normal capillary refill GI/Abdominal exam: PRESENT: normal bowel sounds, soft. ABSENT: distended, guarding, mass, organolmegaly, rebound, tenderness Rectal exam: PRESENT: deferred Extremities exam: PRESENT: full ROM. ABSENT: calf tenderness, clubbing, pedal edema Neurological exam: PRESENT: alert, awake, oriented to person, oriented to place, oriented to time, oriented to situation, CN II-XII grossly intact. ABSENT: motor sensory deficit Psychiatric exam: PRESENT: appropriate affect, normal mood. ABSENT: homicidal ideation, suicidal ideation Skin exam: PRESENT: dry, intact, warm. ABSENT: cyanosis, rash Results Laboratory Results: 12/02/18 04:40 12/02/18 04:40 12/01/18 12/01/18 12/02/18 04:58 04:58 04:40 WBC 6.5 RBC 2.54 L Hgb 7.3 L Hct 21.3 L MCV 84 MCH 28.8 MCHC 34.3 RDW 16.8 H Plt Count 33 L Seg Neutrophils % 81.4 H Lymphocytes % 10.2 L Monocytes % 8.3 Eosinophils % 0.0 Basophils % 0.1 Absolute Neutrophils 5.3 Absolute Lymphocytes 0.7 Absolute Monocytes 0.5 Absolute Eosinophils 0.0 Absolute Basophils 0.0 Retic Count (auto) 1.06 Absolute Retic 0.028 Sodium Potassium Chloride Carbon Dioxide Anion Gap BUN Creatinine Est GFR ( Amer) Est GFR (Non-Af Amer) Glucose Calcium Iron 73.0 TIBC 161 L % Saturation 45 Ferritin 328.00 H Vitamin B12 > 1000.0 H Folate 6.55 12/02/18 04:40 WBC RBC Hgb Hct MCV MCH MCHC RDW Plt Count Seg Neutrophils % Lymphocytes % Monocytes % Eosinophils % Basophils % Absolute Neutrophils Absolute Lymphocytes Absolute Monocytes Absolute Eosinophils Absolute Basophils Retic Count (auto) Absolute Retic Sodium 140.5 Potassium 4.3 Chloride 111 H Carbon Dioxide 21 L Anion Gap 9 BUN 14 Creatinine 1.03 Est GFR ( Amer) > 60 Est GFR (Non-Af Amer) 55 L Glucose 131 H Calcium 9.7 Iron TIBC % Saturation Ferritin Vitamin B12 Folate 11/30/18 01:26 Creatine Kinase 104 Impressions: Abdomen Ultrasound 11/30/18 00:00 IMPRESSION: 1. Cirrhosis. Mild splenomegaly. No ascites. 2. Cholelithiasis. No evidence of acute cholecystitis. Assessment & Plan - Diagnosis (1) Thrombocytopenia Is this a current diagnosis for this admission?: Yes Plan: Platelet count is 33 today. Watch for another 24 hours if it gets above 40 then she will be at her baseline. If as expected, platelet count gets into the 40,000 range, discharge home tomorrow with oral steroid taper. Patient could have a 3-week taper. (2) Anemia Qualifiers: Anemia type: other cause Other causes of anemia: chronic disease, other Qualified Code(s): D63.8 - Anemia in other chronic diseases classified elsewhere Is this a current diagnosis for this admission?: Yes Plan: Anemia of chronic disease, iron studies were normal, hemoglobin is down to 7.3. If it gets 7 or under I would consider giving 1 unit of packed red blood cell transfusion.
[2018-12-02] MEDS ORDERED: BENZONATATE 100 MG CAPSULE PO PRN (08:04)
[2018-12-02] MEDS: IPRATROPIUM/ALBUTEROL 0.5-2.5 MG/3 ML AMPUL NEB SCH ×2 (08:35→19:21)
[2018-12-02] MEDS ORDERED: (PENDING PHARMACY ID) (Budesonide/Formoterol Fumarate 1 PUFF) IH SCH (10:00)
[2018-12-02] MEDS ORDERED: URSODIOL 250 MG PO SCH (10:00)
[2018-12-02] MEDS: DOCUSATE SODIUM 100 MG CAPSULE PO SCH ×2 (11:06→17:33)
[2018-12-02] MEDS: BACLOFEN 20 MG TABLET PO SCH ×3 (11:06→17:33)
[2018-12-02] MEDS: METHYLPREDNISOLONE INJ 40 MG/1 ML SDV IV SCH ×2 (11:19→22:17)
[2018-12-02] MEDS: PROPRANOLOL HCL 10 MG TABLET PO SCH ×2 (11:19→17:33)
[2018-12-02] MEDS: SODIUM CHLORIDE NASAL SPRAY 44 ML NASL SCH ×4 (11:20→22:17)
[2018-12-02] MEDS: CETIRIZINE 10 MG TABLET PO SCH (11:20)
[2018-12-02] MEDS: FLUTICASONE/VILANTEROL 200-25 MCG/DOSE IH SCH (11:21)
[2018-12-02 11:32] LABS: HEPATITIS C VIRUS ANTIBODY 0.3 s/co ratio (0.0-0.9)
--- NOTE | 2018-12-02 11:33 | PDOC PROGRESS REPORT ---
Subjective Progress Note for:: 12/02/18 Subjective:: 58 year old female with a PMH of primary sclerosing cholangitis who was sent to the ER by her PCP due to abnormal labs indicating thrombocytopenia and acute renal failure. Patient is asymptomatic found to have a creatinine of 2.2, potassium of 3.1, platelets of 17 and a hemoglobin of 9.8 admits to recent Augmentin use for unclear indication. [facility] hepatology Dr. Perry was contacted for today's findings who recommended albumin and observation in [facility]. She was admitted earlier this morning. She says she gets annual ERCP for her PSC and had one with biliary stenting on 11/04/18 complicated by duodenal perforation requiring endoscopic repair and subsequent removal on 11/11/18. No acute event overnight. Patient says that when she was admitted recently in [facility], she developed some loose stools but thought this was from laxatives as she did have some constipation and was given some medications there. She denies any recent fever or chills. Denies headache, dizziness. She had some vague abdominal cramping a few days ago but is currently asymptomatic. Will request records from [facility]. 12/01: No acute event overnight. She is comfortable. She denies acute complaint but says she had some mild nosebleed this morning which she report she frequ ently experiences when her nose gets too dry. No hematuria or dysuria. Platelet trended down to 19 from 28 and Hb to 7.7. from 8.5. Creatinine has recovered with IV fluids and is now back to baseline. 12/02/2018-patient is comfortably in the bed communicating well. She is a 58-year-old female with history of primary sclerosing cholangitis admitted for abnormal labs including low platelet count and acute renal failure. Acute renal failure resolved. Creatinine today is 1.03 plan is to cancel nephrology consult. Emelia colón saw the patient this morning if the hemoglobin goes down less than 7 to transfuse PRBC. Presently on IV Solu-Medrol platelet count is 33,000 her baseline is around 40,000. No signs of any active bleeding. Reason For Visit: ARF, THROMBOCYTOPENIA, PSC Physical Exam Vital Signs: Temp Pulse Resp BP Pulse Ox 98.4 F 89 14 131/72 H 94 12/02/18 07:31 12/02/18 08:35 12/02/18 08:35 12/02/18 07:31 12/02/18 08:35 Intake & Output 12/01/18 12/02/18 12/03/18 06:59 06:59 06:59 Intake Total 2100 1426 Output Total 2300 1450 Balance -200 -24 Weight 90 kg 90 kg General appearance: PRESENT: no acute distress, well-developed Head exam: PRESENT: atraumatic Eye exam: PRESENT: PERRLA, other - Pale conjunctiva. Ear exam: PRESENT: normal external ear exam Mouth exam: PRESENT: moist, tongue midline Teeth exam: PRESENT: poor dentation Neck exam: ABSENT: carotid bruit, JVD, lymphadenopathy, thyromegaly Respiratory exam: PRESENT: clear to auscultation radha. ABSENT: rales, rhonchi, wheezes Cardiovascular exam: PRESENT: tachycardia GI/Abdominal exam: PRESENT: normal bowel sounds, soft. ABSENT: distended, guarding, mass, organolmegaly, rebound, tenderness Rectal exam: PRESENT: deferred Extremities exam: PRESENT: full ROM. ABSENT: calf tenderness, clubbing, pedal edema Neurological exam: PRESENT: alert, awake, oriented to person, oriented to place, oriented to time, oriented to situation, CN II-XII grossly intact. ABSENT: motor sensory deficit Psychiatric exam: PRESENT: appropriate affect, normal mood. ABSENT: homicidal ideation, suicidal ideation Results Laboratory Results: 12/02/18 04:40 12/02/18 04:40 12/01/18 12/01/18 12/02/18 04:58 04:58 04:40 WBC 6.5 RBC 2.54 L Hgb 7.3 L Hct 21.3 L MCV 84 MCH 28.8 MCHC 34.3 RDW 16.8 H Plt Count 33 L Seg Neutrophils % 81.4 H Lymphocytes % 10.2 L Monocytes % 8.3 Eosinophils % 0.0 Basophils % 0.1 Absolute Neutrophils 5.3 Absolute Lymphocytes 0.7 Absolute Monocytes 0.5 Absolute Eosinophils 0.0 Absolute Basophils 0.0 Retic Count (auto) 1.06 Absolute Retic 0.028 Sodium Potassium Chloride Carbon Dioxide Anion Gap BUN Creatinine Est GFR ( Amer) Est GFR (Non-Af Amer) Glucose Calcium Iron 73.0 TIBC 161 L % Saturation 45 Ferritin 328.00 H Vitamin B12 > 1000.0 H Folate 6.55 12/02/18 04:40 WBC RBC Hgb Hct MCV MCH MCHC RDW Plt Count Seg Neutrophils % Lymphocytes % Monocytes % Eosinophils % Basophils % Absolute Neutrophils Absolute Lymphocytes Absolute Monocytes Absolute Eosinophils Absolute Basophils Retic Count (auto) Absolute Retic Sodium 140.5 Potassium 4.3 Chloride 111 H Carbon Dioxide 21 L Anion Gap 9 BUN 14 Creatinine 1.03 Est GFR ( Amer) > 60 Est GFR (Non-Af Amer) 55 L Glucose 131 H Calcium 9.7 Iron TIBC % Saturation Ferritin Vitamin B12 Folate 11/30/18 01:26 Creatine Kinase 104 Impressions: Abdomen Ultrasound 11/30/18 00:00 IMPRESSION: 1. Cirrhosis. Mild splenomegaly. No ascites. 2. Cholelithiasis. No evidence of acute cholecystitis. Assessment and Plan - Diagnosis (1) Acute renal failure Is this a current diagnosis for this admission?: Yes Plan: Likely pre renal as creatinine promptly recovered and is now back to baseline with IV hydration. 12/02/2018-patient came in with creatinine of 2.15, with IV hydration improved to 1.03. Acute renal failure most likely secondary to prerenal causes resolved. (2) Anemia Qualifiers: Anemia type: other cause Other causes of anemia: chronic disease, other Qualified Code(s): D63.8 - Anemia in other chronic diseases classified elsewhere Is this a current diagnosis for this admission?: Yes Plan: 11/30: The combination of new onset thrombocytopenia, anemia and acute failure is concerning for TTP and HUS. As mentioned, she had some loose stools on her recent admission at [facility] but reports this was after she was given laxatives. No significant neurologic symptoms. Repeat CBC shows platelets has slightly improved from 17 to 28. She washburn shave some mild chronic thrombocytopenia with previous count in the 70s. Hb trended down from 9.8 to 8.5. Previous baseline Hb was 11. Creatinine is up at 2.4 from recent previous baseline of 1. She had a recent CT abdomen and pelvis with no remarkable renal obstructive process. SPEP and UPEP have been sent on admission. She received 2L of fluid bolus in the ER. She is currently on prednisone. Will switch to solumedrol. Will check PT,PTT, fibrinogen and degradation products and D-dimer. Will also send for ADAMTS-13. Will check retic count and LDH level. Will await for further nephrology and hematology input. Repeat BMP and CBC tomorrow. Patient is also on etanercept which can cause anemia and thrombocytopenia but not particularly acute renal failure. 12/01: Clinical picture is not consistent with TTP/HUS. As mentioned, patient is comfortable and denies acute complaints. Her renal function has also quickly recovered with IV fluids overnight and is now back to baseline. Platelet trended down to 19 from 28 and Hb to 7.7. from 8.5. Creatinine has recovered with IV fluids and is now back to baseline. She received her first dose of IV steroids last night. Discussed with hematology. Differentials include hemolytic anemia, ITP, and cytopenias from her advanced liver disease. US Adbomen did reveal cirrhosis from long standing PSC. As mentioned before, she was also on Enbrel which can cause aplastic anemia and thrombocytopenia. Will continue IV steroids for now and continue to reassess response. 11/30/2018-anemia of chronic disease. Most likely secondary to liver cirrhosis due to long-standing primary sclerosing cholangitis. Patient is also on Enbrel which may caused aplastic anemia and thrombocytopenia. Presently on IV antibiotic therapy hemoglobin is 7.3 plan is to give 1 unit of PRBC if the hemoglobin is less than 7. Patient is asymptomatic today. Plan is to check the CBC tomorrow. (3) Primary sclerosing cholangitis Is this a current diagnosis for this admission?: Yes Plan: Recent biliary stent with subsequent removal. Awaiting records form [facility]. 12/03/[id number]-dzec-old female admitted with primary sclerosing cholangitis. Rec ent history of biliary stent placement and subsequent removal. No complaints of abdominal pain. No fevers. (4) Thrombocytopenia Is this a current diagnosis for this admission?: Yes Plan: As per number 2. 12/02/2018-patient is receiving IV Solu-Medrol for thrombocytopenia on admission platelet count is 12,000 improved to 33,000 today. Plan is to continue to closely monitor the platelet count. No signs of any mucosal or skin bleeding. There is any blood in the urine denies any presence of blood in the stool. - Time Time Spent with patient: 15-24 minutes Medications reviewed and adjusted accordingly: Yes Anticipated discharge: Home
[2018-12-02 11:48] LABS: PATH REVIEW PATHOLOGIST REVIEWED
[2018-12-02] MEDS: CEFTRIAXONE SODIUM 1,000 MG in DEXTROSE 5%-WATER 50 ML IV SCH (12:50)
[2018-12-02 17:36] LABS: ALBUMIN URINE 11.3 % (.); ALPHA-1-GLOBULIN URINE 1.1 % (.); ALPHA-2-GLOBULIN UR 3.7 % (.); M-SPIKE % URINE Not Observed % (Not Observ); PROTEIN TOTAL URINE 61.7 mg/dL (Not Estab.)
[2018-12-02] MEDS ORDERED: CYCLOBENZAPRINE HCL 10 MG TABLET PO SCH (22:00)
[2018-12-02] MEDS ORDERED: (PENDING PHARMACY ID) (Cyclobenzaprine Hcl [Flexeril 5 Mg Tablet] 5 MG) PO SCH (22:00)
[2018-12-02] MEDS ORDERED: MONTELUKAST SODIUM 10 MG TABLET PO SCH (22:00)
[2018-12-02] MEDS ORDERED: ATORVASTATIN CALCIUM 20 MG TABLET PO SCH (22:00)
[2018-12-02] MEDS ORDERED: PROPRANOLOL HCL 10 MG TABLET PO ONE (23:00)
[2018-12-03 07:31] LABS: ABSOLUTE LYMPHOCYTES (AUTO) 0.6 10^3/uL (0.5-4.7); ABSOLUTE MONOCYTES (AUTO) 0.6 10^3/uL (0.1-1.4); HEMATOCRIT 21.6 % (36.0-47.0); LYMPHOCYTES % (AUTO) 11.9 % (13-45); MEAN CORPUSCULAR HEMOGLOBIN 29.2 pg (27.0-33.4); MEAN CORPUSCULAR HGB CONC 34.7 g/dL (32.0-36.0); MEAN CORPUSCULAR VOLUME 84 fl (80-97); MONOCYTES % (AUTO) 11.6 % (3-13); RED BLOOD COUNT 2.57 10^6/uL (3.72-5.28); RED CELL DISTRIBUTION WIDTH 16.3 % (11.5-14.0); SEGMENTED NEUTROPHILS % (AUTO) 76.5 % (42-78); TOTAL CELLS COUNTED % (AUTO) 100 %; WHITE BLOOD COUNT 5.3 10^3/uL (4.0-10.5)
[2018-12-03] MEDS: IPRATROPIUM/ALBUTEROL 0.5-2.5 MG/3 ML AMPUL NEB SCH (07:35)
[2018-12-03 07:53] LABS: ALANINE AMINOTRANSFERASE 20 U/L (9-52); ALBUMIN 2.9 g/dL (3.5-5.0); ALKALINE PHOSPHATASE 130 U/L (38-126); ANION GAP 13 (5-19); ASPARTATE AMINO TRANSFERASE 36 U/L (14-36); BILIRUBIN,DIRECT 1.3 mg/dL (0.0-0.4); BILIRUBIN,TOTAL 2.3 mg/dL (0.2-1.3); BLOOD UREA NITROGEN 17 mg/dL (7-20); CALCIUM 9.6 mg/dL (8.4-10.2); CARBON DIOXIDE 20 mmol/L (22-30); CHLORIDE 110 mmol/L (98-107); GLUCOSE 117 mg/dL (75-110); POTASSIUM 4.1 mmol/L (3.6-5.0); SODIUM 143.2 mmol/L (137-145); TOTAL PROTEIN 8.4 g/dL (6.3-8.2)
[2018-12-03 07:56] LABS: PLATELET COUNT 44 10^3/uL (150-450)
[2018-12-03 07:57] LABS: HEMOGLOBIN 7.5 g/dL (12.0-15.5)
[2018-12-03] MEDS: DOCUSATE SODIUM 100 MG CAPSULE PO SCH (09:15)
[2018-12-03] MEDS: FLUTICASONE/VILANTEROL 200-25 MCG/DOSE IH SCH (09:15)
[2018-12-03] MEDS: BACLOFEN 20 MG TABLET PO SCH (09:15)
[2018-12-03] MEDS: METHYLPREDNISOLONE INJ 40 MG/1 ML SDV IV SCH (09:18)
[2018-12-03] MEDS: PROPRANOLOL HCL 10 MG TABLET PO SCH (09:18)
[2018-12-03] MEDS: CETIRIZINE 10 MG TABLET PO SCH (09:18)
[2018-12-03] MEDS: SODIUM CHLORIDE NASAL SPRAY 44 ML NASL SCH (09:18)
--- NOTE | 2018-12-03 09:25 | PDOC PROGRESS REPORT ---
Subjective Progress Note for:: 12/03/18 Subjective:: Patient feeling well and very anxious to go home. No new complaints. Reason For Visit: ARF, THROMBOCYTOPENIA, PSC Physical Exam Vital Signs: Temp Pulse Resp BP Pulse Ox 98.4 F 86 16 139/70 H 90 L 12/03/18 08:05 12/03/18 08:05 12/03/18 08:05 12/03/18 08:05 12/03/18 08:05 Intake & Output 12/02/18 12/03/18 12/04/18 06:59 06:59 06:59 Intake Total 1426 1953 Output Total 1450 0300 Balance -24 -457 Weight 90 kg 91.1 kg General appearance: PRESENT: no acute distress, well-developed, well-nourished Exam: 58 year old female. Head exam: PRESENT: normocephalic Respiratory exam: PRESENT: clear to auscultation radha, unlabored Cardiovascular exam: PRESENT: RRR GI/Abdominal exam: PRESENT: soft. ABSENT: tenderness Neurological exam: PRESENT: alert, awake Psychiatric exam: PRESENT: appropriate affect Skin exam: PRESENT: normal color Results Laboratory Results: 12/03/18 06:26 12/03/18 06:26 12/03/18 12/03/18 06:26 06:26 WBC 5.3 RBC 2.57 L Hgb 7.5 L Hct 21.6 L MCV 84 MCH 29.2 MCHC 34.7 RDW 16.3 H Plt Count 44 L Seg Neutrophils % 76.5 Lymphocytes % 11.9 L Monocytes % 11.6 Eosinophils % 0.0 Basophils % 0.0 Absolute Neutrophils 4.0 Absolute Lymphocytes 0.6 Absolute Monocytes 0.6 Absolute Eosinophils 0.0 Absolute Basophils 0.0 Sodium 143.2 Potassium 4.1 Chloride 110 H Carbon Dioxide 20 L Anion Gap 13 BUN 17 Creatinine 0.95 Est GFR ( Amer) > 60 Est GFR (Non-Af Amer) > 60 Glucose 117 H Calcium 9.6 Magnesium 1.8 Total Bilirubin 2.3 H AST 36 ALT 20 Alkaline Phosphatase 130 H Total Protein 8.4 H Albumin 2.9 L 11/30/18 01:26 Creatine Kinase 104 Impressions: Abdomen Ultrasound 11/30/18 00:00 IMPRESSION: 1. Cirrhosis. Mild splenomegaly. No ascites. 2. Cholelithiasis. No evidence of acute cholecystitis. Assessment & Plan - Diagnosis (1) Thrombocytopenia Is this a current diagnosis for this admission?: Yes Plan: Improving. I would change back to prednisone 60 mg po daily and stop the solumedrol. I will arrange for follow-up on discharge to monitor CBCs. (2) Anemia Qualifiers: Anemia type: other cause Other causes of anemia: chronic disease, other Qualified Code(s): D63.8 - Anemia in other chronic diseases classified elsewhere Is this a current diagnosis for this admission?: Yes Plan: Stable. Patient does not wish to undergo transfusion. She is hemodynamically stable. - Plan Summary Plan Summary: OK for discharge from my standpoint. Will follow-up as outpatient.
[2018-12-03 12:36] VITALS: BP 138/68
--- NOTE | 2018-12-03 14:21 | PDOC DISCHARGE SUMMARY ---
General - Admit/Disc Date/PCP Admission Date/Primary Care Provider: 11/30/18 00:54 OBI NAVARRO PA-C Discharge Date: 12/03/18 - Discharge Diagnosis (1) Acute renal failure Is this a current diagnosis for this admission?: Yes Summary: Likely pre renal as creatinine promptly recovered and is now back to baseline with IV hydration. 12/02/2018-patient came in with creatinine of 2.15, with IV hydration improved to 1.03. Acute renal failure most likely secondary to prerenal causes resolved. 12/03/2018-patient admitted with creatinine of 2.15 acute kidney injury most likely due to prerenal causes. Today's creatinine is 0.95 acute kidney injury is resolved with IV fluids. (2) Anemia Is this a current diagnosis for this admission?: Yes Summary: 11/30: The combination of new onset thrombocytopenia, anemia and acute failure is concerning for TTP and HUS. As mentioned, she had some loose stools on her recent admission at [facility] but reports this was after she was given laxatives. No significant neurologic symptoms. Repeat CBC shows platelets has slightly improved from 17 to 28. She washburn shave some mild chronic thrombocytopenia with previous count in the 70s. Hb trended down from 9.8 to 8.5. Previous baseline Hb was 11. Creatinine is up at 2.4 from recent previous baseline of 1. She had a recent CT abdomen and pelvis with no remarkable renal obstructive process. SPEP and UPEP have been sent on admission. She received 2L of fluid bolus in the ER. She is currently on prednisone. Will switch to solumedrol. Will check PT,PTT, fibrinogen and degradation products and D-dimer. Will also send for ADAMTS-13. Will check retic count and LDH level. Will await for further nephrology and hematology input. Repeat BMP and CBC tomorrow. Patient is also on etanercept which can cause anemia and thrombocytopenia but not particularly acute renal failure. 12/01: Clinical picture is not consistent with TTP/HUS. As mentioned, patient is comfortable and denies acute complaints. Her renal function has also quickly rec overed with IV fluids overnight and is now back to baseline. Platelet trended down to 19 from 28 and Hb to 7.7. from 8.5. Creatinine has recovered with IV fluids and is now back to baseline. She received her first dose of IV steroids last night. Discussed with hematology. Differentials include hemolytic anemia, ITP, and cytopenias from her advanced liver disease. US Adbomen did reveal cirrhosis from long standing PSC. As mentioned before, she was also on Enbrel which can cause aplastic anemia and thrombocytopenia. Will continue IV steroids for now and continue to reassess response. 12/02/2018-anemia of chronic disease. Most likely secondary to liver cirrhosis due to long-standing primary sclerosing cholangitis. Patient is also on Enbrel which may caused aplastic anemia and thrombocytopenia. Presently on IV antibiotic therapy hemoglobin is 7.3 plan is to give 1 unit of PRBC if the he moglobin is less than 7. Patient is asymptomatic today. Plan is to check the CBC tomorrow. 12/03/2018-patient came in with hemoglobin of 9.8 and latest hemoglobin is 7.5 plan as per the oncology team is to transfer the patient if hemoglobin is less than 7. Patient is asymptomatic. Patient is going home today. (3) Primary sclerosing cholangitis Is this a current diagnosis for this admission?: Yes Summary: Recent biliary stent with subsequent removal. Awaiting records [facility]. 12/02/[id number]-scfd-old female admitted with primary sclerosing cholangitis. Recent history of biliary stent placement and subsequent removal. No complaints of abdominal pain. No fevers. 12/03/2018-patient history of primary sclerosing cholangitis recent history of stent placement and subsequent removal no abdominal pains. Stable. (4) Thrombocytopenia Is this a current diagnosis for this admission?: Yes Summary: As per number 2. 12/02/2018-patient is receiving IV Solu-Medrol for thrombocytopenia on admission platelet count is 12,000 improved to 33,000 today. Plan is to continue to closely monitor the platelet count. No signs of any mucosal or skin bleeding. There is any blood in the urine denies any presence of blood in the stool. 12/03/2018-patient platelet count is 44,000 today. That is her baseline. She is going home on prednisone 60 mg p.o. twice daily. Patient is advised to follow- up with Dr. Pino in few days. Patient verbalized response on going home today. - Additional Information Resuscitation Status: Full Code Discharge Diet: As Tolerated Discharge Activity: Activity As Tolerated Prescriptions: Prednisone [Deltasone 20 mg Tablet] 60 mg PO DAILY #90 tablet Home Medications: Acetaminophen [Tylenol 325 mg Tablet] 325 mg PO DAILYP PRN 11/30/18 Albuterol Sulfate [Proair HFA Inhalation Aerosol 8.5 gm MDI] 1 puff IH Q4HP PRN 11/30/18 Albuterol Sulfate [Ventolin 0.042% Neb 1.25 mg/3 mL Ampul] 1 vial NEB Q4HP PRN 11/30/18 Benzonatate [Tessalon Perle 100 mg Capsule] 100 mg PO BIDP PRN 11/30/18 Budesonide/Formoterol Fumarate [Symbicort HFA 160-4.5 mcg Inhaler 6 gm] 1 puff IH Q12 11/30/18 Cetirizine HCl [Zyrtec 10 mg Tablet] 1 tab PO DAILY 11/30/18 Cyclobenzaprine HCl [Flexeril 5 mg Tablet] 5 mg PO QHS 11/30/18 Etanercept [Enbrel] 50 mg SQ CROWLEY 11/30/18 Montelukast Sodium [Singulair 10 mg Tablet] 10 mg PO QHS 11/30/18 Omeprazole 20 mg PO DAILY 11/30/18 Propranolol HCl [Inderal 10 mg Tablet] 10 mg PO BID 11/30/18 Rosuvastatin Calcium [Crestor 10 mg Tablet] 10 mg PO DAILY 11/30/18 Ursodiol [Sherri] 250 mg PO TID 11/30/18 Baclofen [Baclofen 20 mg Tablet] 20 mg PO TID tablet 12/03/18 Prednisone [Deltasone 20 mg Tablet] 60 mg PO DAILY #90 tablet 12/03/18 Simethicone [Mylicon 80 mg Chewable Tablet] 80 mg PO BID PRN tab.chew 12/03/18 History of Present Illness History of Present Illness: IFEANYI ISRAEL is a 58 year old female Hospital Course Hospital Course: 12/03/2018-patient was admitted with anemia and thrombocytopenia latest hemoglobin is 7.5 platelet count is 44,000 she is on p.o. prednisone she is going home today no complications during the hospital stay. Physical Exam Vital Signs: Temp Pulse Resp BP Pulse Ox 98.3 F 86 16 138/68 H 92 12/03/18 12:35 12/03/18 12:35 12/03/18 12:35 12/03/18 12:35 12/03/18 12:35 Intake & Output 12/02/18 12/03/18 12/04/18 06:59 06:59 06:59 Intake Total 1425 1333 220 Output Total 8929 3409 230 [facility] -24 -190 -432 Weight 90 kg 91.1 kg General appearance: PRESENT: no acute distress, well-developed Head exam: PRESENT: atraumatic Eye exam: PRESENT: PERRLA Mouth exam: PRESENT: moist, tongue midline Teeth exam: PRESENT: poor dentation Neck exam: ABSENT: carotid bruit, JVD, lymphadenopathy, thyromegaly Respiratory exam: PRESENT: decreased breath sounds Cardiovascular exam: PRESENT: RRR, tachycardia. ABSENT: diastolic murmur, rubs, systolic murmur GI/Abdominal exam: PRESENT: normal bowel sounds, soft. ABSENT: distended, guarding, mass, organolmegaly, rebound, tenderness Rectal exam: PRESENT: deferred Extremities exam: PRESENT: full ROM. ABSENT: calf tenderness, clubbing, pedal edema Neurological exam: PRESENT: alert, awake, oriented to person, oriented to place, oriented to time, oriented to situation, CN II-XII grossly intact. ABSENT: motor sensory deficit Psychiatric exam: PRESENT: appropriate affect, normal mood. ABSENT: homicidal ideation, suicidal ideation Results Laboratory Results: 12/03/18 06:26 12/03/18 06:26 12/03/18 12/03/18 06:26 06:26 WBC 5.3 RBC 2.57 L Hgb 7.5 L Hct 21.6 L MCV 84 MCH 29.2 MCHC 34.7 RDW 16.3 H Plt Count 44 L Seg Neutrophils % 76.5 Lymphocytes % 11.9 L Monocytes % 11.6 Eosinophils % 0.0 Basophils % 0.0 Absolute Neutrophils 4.0 Absolute Lymphocytes 0.6 Absolute Monocytes 0.6 Absolute Eosinophils 0.0 Absolute Basophils 0.0 Sodium 143.2 Potassium 4.1 Chloride 110 H Carbon Dioxide 20 L Anion Gap 13 BUN 17 Creatinine 0.95 Est GFR ( Amer) > 60 Est GFR (Non-Af Amer) > 60 Glucose 117 H Calcium 9.6 Magnesium 1.8 Total Bilirubin 2.3 H AST 36 ALT 20 Alkaline Phosphatase 130 H Total Protein 8.4 H Albumin 2.9 L 11/30/18 01:26 Creatine Kinase 104 Impressions: Abdomen Ultrasound 11/30/18 00:00 IMPRESSION: 1. Cirrhosis. Mild splenomegaly. No ascites. 2. Cholelithiasis. No evidence of acute cholecystitis. Qualifiers - * PATIENT BEING DISCHARGED WITH ANY OF THE FOLLOWING DIAGNOSIS: No VTE patient discharged on overlapping Therapy?: No Acute Heart Failure Is this a Heart Failure Patient?: No Plan Discharge Plan: Patient is going home today. Time Spent: Less than 30 Minutes
[2018-12-04 16:38] LABS: A/G RATIO. 0.5 (0.7-1.7); ALBUMIN 3 2.5 g/dL (2.9-4.4); ALPHA-1-GLOBULIN 0.3 g/dL (0.0-0.4); BETA GLOBULIN 0.8 g/dL (0.7-1.3); GAMMA GLOBULINS 4.1 g/dL (0.4-1.8); IMMUNOGLOBULIN A 654 mg/dL (87-352); IMMUNOGLOBULIN G 4506 mg/dL (700-1600); IMMUNOGLOBULIN M 84 mg/dL (26-217); MONOCLONAL-SPIKE Not Observed g/dL (Not Observ)
[2018-12-04 16:41] LABS: PROTEIN TOTAL SERUM 8.3 g/dL (6.0-8.5)
== END 2018-12-03 13:30 | disposition home or self-care (01) | DRG 683 ==
LOC: ER 18:46 → EH 11-30 00:54 → OBSVTOIN 11-30 00:54 → 4S 11-30 02:13
PROVIDERS: ADMIT Internal Medicine; ATTEND Internal Medicine
DX: N17.9 Acute kidney failure, unspecified (principal); K83.01 Primary sclerosing cholangitis; D69.6 Thrombocytopenia, unspecified; D64.9 Anemia, unspecified; R04.0 Epistaxis; K74.60 Unspecified cirrhosis of liver; R79.89 Other specified abnormal findings of blood chemistry; Z79.2 Long term (current) use of antibiotics; Z79.51 Long term (current) use of inhaled steroids; Z79.52 Long term (current) use of systemic steroids; Z79.899 Other long term (current) drug therapy
CPT/HCPCS: 36415; 76700; 80048; 80053; 80074; 81001; 82550; 82607; 82728; 82746; 83540; 83550; 83615; 83735; 84156; 84166; 84550; 85025; 85027; 85045; 85362; 85379; 85384; 85610; 85652; 85730; 86140; 86320; 86335; 87040; 94640; 96360; 99285; J0696; J2920; J3480; J3490; J7030; J7060; J7120; J7512; J7620; P9041; S0164

== ENCOUNTER 2019-02-23 14:29 | Emergency (ER) | payer BC, MEDICARE, MEDICAID ==
[2019-02-23] MEDS ORDERED: NORMAL SALINE 1000 ML 1,000 ML IV ONE (15:05)
[2019-02-23] MEDS ORDERED: ONDANSETRON HCL INJ/PF 4 MG/2 ML SDV IV ONE ×2 (15:05→19:50)
[2019-02-23] MEDS ORDERED: KETOROLAC TROMETHAMINE INJ/PF 30 MG/1 ML SDV IV ONE (15:12)
--- NOTE | 2019-02-23 15:12 | ER Document Report ---
ED Medical Screen (RME) - General Chief Complaint: Abdominal Pain Stated Complaint: ABDOMINAL PAIN Time Seen by Provider: 02/23/19 15:03 Primary Care Provider: OBI NAVARRO PA-C [Primary Care Provider] - Follow up as needed Mode of Arrival: Wheelchair Information source: Patient Notes: Patient is a 58-year-old female presents emergency department with generalized abdominal pain, nausea, vomiting and diarrhea that began this morning. Patient does have a fever here in the emergency department. Patient reports the diarrhea has been so severe she has had multiple accidents today. Exam: Generalized abdominal tenderness to palpation. I have greeted and performed a rapid initial assessment of this patient. A comprehensive ED assessment and evaluation of the patient, analysis of test results and completion of the medical decision making process will be conducted by additional ED providers. I have specifically instructed the patient or family members with the patient to immediately return to any nursing staff should anything change in the patient's condition or with their chief complaint. This medical record was dictated with voice recognizing software. There may be grammatical, syntax errors that are unintended. TRAVEL OUTSIDE OF THE [place] IN LAST 30 DAYS: No - Related Data Allergies/Adverse Reactions: propoxyphene napsylate [From Darvocet-N 100] Allergy (Intermediate, Verified 11/29/18 18:47) metronidazole [From Flagyl] Allergy (Mild, Verified 11/29/18 18:47) nausea and headache Metronidazole HCl [From Flagyl] Allergy (Mild, Verified 11/29/18 18:47) nausea and headache Past Medical History - Past Medical History Cardiac Medical History: Reports: Hx Hypercholesterolemia Denies: Hx Heart Attack, Hx Hypertension Pulmonary Medical History: Denies: Hx Asthma - MILD RESTRICTIVE LUNG DISEASE, Hx Bronchitis, Hx COPD, Hx Pneumonia Neurological Medical History: Denies: Hx Cerebrovascular Accident, Hx Seizures Renal/ Medical History: Denies: Hx Peritoneal Dialysis GI Medical History: Reports: Hx Cirrhosis, Hx Gastroesophageal Reflux Disease, Hx Liver Failure, Hx Colonoscopy, Hx Endoscopy Musculoskeltal Medical History: Reports Hx Arthritis - RA, OA, Reports Hx Musculoskeletal Deformity, Reports Hx Musculoskeletal Trauma Traumatic Medical History: Reports: Hx Fractures - Fifth toe left ulnar Past Surgical History: Reports: Hx Breast Surgery - Right breast biopsy, Hx Cholecystectomy - stents in bile ducts, Hx Hysterectomy, Hx Oral Surgery - Immunizations Hx Diphtheria, Pertussis, Tetanus Vaccination: No History of Influenza Vaccine for 04/2017 - 09/2017 Season: Yes Influenza Administration Date for 04/2017 - 09/2017 Season: 04/07/18 Physical Exam - Vital signs Vitals: Temp Pulse Resp BP Pulse Ox 100.7 F H 97 18 106/54 L 100 02/23/19 14:47 02/23/19 14:47 02/23/19 14:47 02/23/19 14:47 02/23/19 14:47 Course - Vital Signs Vital signs: Temp Pulse Resp BP Pulse Ox 100.7 F H 97 18 106/54 L 100 02/23/19 14:47 02/23/19 14:47 02/23/19 14:47 02/23/19 14:47 02/23/19 14:47 Doctor's Discharge - Discharge Referrals: OBI NAVARRO PA-C [Primary Care Provider] - Follow up as needed
[2019-02-23 16:00] LABS: ABSOLUTE EOSINOPHILS # (AUTO) 0.3 10^3/uL (0.0-0.6); ABSOLUTE LYMPHOCYTES (AUTO) 0.8 10^3/uL (0.5-4.7); ABSOLUTE MONOCYTES (AUTO) 0.3 10^3/uL (0.1-1.4); ABSOLUTE NEUT (AUTO) 4.4 10^3/uL (1.7-8.2); BASOPHILS % (AUTO) 0.3 % (0-2); EOSINOPHILS % (AUTO) 5.5 % (0-6); HEMATOCRIT 31.6 % (36.0-47.0); HEMOGLOBIN 10.7 g/dL (12.0-15.5); MEAN CORPUSCULAR HEMOGLOBIN 29.4 pg (27.0-33.4); MEAN CORPUSCULAR HGB CONC 33.9 g/dL (32.0-36.0); MEAN CORPUSCULAR VOLUME 87 fl (80-97); MONOCYTES % (AUTO) 4.5 % (3-13); RED BLOOD COUNT 3.65 10^6/uL (3.72-5.28); RED CELL DISTRIBUTION WIDTH 18.2 % (11.5-14.0); SEGMENTED NEUTROPHILS % (AUTO) 75.7 % (42-78); TOTAL CELLS COUNTED % (AUTO) 100 %; WHITE BLOOD COUNT 5.8 10^3/uL (4.0-10.5)
[2019-02-23 16:33] LABS: PLATELET COUNT 90 10^3/uL (150-450)
--- NOTE | 2019-02-23 19:27 | ER Document Report ---
ED General - General Chief Complaint: Abdominal Pain Stated Complaint: ABDOMINAL PAIN Time Seen by Provider: 02/23/19 15:03 Primary Care Provider: OBI NAVARRO PA-C [Primary Care Provider] - Follow up as needed Mode of Arrival: Wheelchair Notes: Patient is a 58-year-old female with history of primary sclerosing cholangitis that presents to the emergency department for chief complaint of abdominal pain, nausea, vomiting and diarrhea. Patient reports that this started earlier today, she has had multiple episodes of diarrhea at least 10, and she states that she has had accidents she did not reach the bathroom, she complains of pain mainly in the left side of her abdomen and the upper and lower. She currently rates her pain as a 9 out of 10 describes as constantly aching, she has a mild headache associated with this as well, and she also complains of feeling lightheaded. Denies having any syncopal episodes. She is having nausea at this time, not actively vomiting. She states the pain is in a different location than when it usually hurts in relation to her primary sclerosing cholangitis, she states she had a stent in her bile duct, but at the time from the ERCP she reports that she had a perforated bowel that had to be repaired, and that was in October of this year. Past Medical History: rheumatoid arthritis, primary sclerosing cholangitis Past Surgical History: ERCPs, bowel perforation repair Social History: Denies tobacco, alcohol or drug use. Family History: Reviewed and noncontributory for presenting illness Allergies: Reviewed, see documented allergy list. REVIEW OF SYSTEMS: Other than noted above, the 12 point review of systems was reviewed with the patient and were negative, all pertinent findings are included in the HPI. PHYSICAL EXAMINATION: Vital signs reviewed, nursing noted reviewed. GENERAL: Patient appears uncomfortable on exam, no acute distress HEAD: Atraumatic, normocephalic. EYES: Eyes appear normal, extraocular movements intact, sclera anicteric, conjunctiva are normal. ENT: nares patent, oropharynx clear without exudates. Moist mucous membranes. NECK: Normal range of motion, supple without lymphadenopathy, no neck stiffness, negative Kernig's and Brudzinski signs LUNGS: Breath sounds clear to auscultation bilaterally and equal. No wheezes rales or rhonchi. HEART: Heart rate tachycardic, regular rhythm, no audible murmur ABDOMEN: Soft, left upper quadrant and left lower quadrant tenderness to palpation, no right upper quadrant tenderness, normoactive bowel sounds. No rebound, guarding, or rigidity. No masses appreciated. EXTREMITIES: Nontender, good range of motion, no pitting or edema. NEUROLOGICAL: No focal neurological deficits. Moves all extremities spontaneously Motor and sensory grossly intact on exam. PSYCH: Flat affect, mildly anxious as well. SKIN: Warm, Dry, normal turgor, no rashes or lesions noted on exposed skin TRAVEL OUTSIDE OF THE [place] IN LAST 30 DAYS: No - Related Data Allergies/Adverse Reactions: propoxyphene napsylate [From Darvocet-N 100] Allergy (Intermediate, Verified 11/29/18 18:47) metronidazole [From Flagyl] Allergy (Mild, Verified 11/29/18 18:47) nausea and headache Metronidazole HCl [From Flagyl] Allergy (Mild, Verified 11/29/18 18:47) nausea and headache Past Medical History - General Information source: Patient - Social History Smoking Status: Never Smoker Chew tobacco use (# tins/day): No Frequency of alcohol use: None Drug Abuse: None Family History: Hypertension Patient has suicidal ideation: No Patient has homicidal ideation: No - Past Medical History Cardiac Medical History: Reports: Hx Hypercholesterolemia Denies: Hx Heart Attack, Hx Hypertension Pulmonary Medical History: Denies: Hx Asthma - MILD RESTRICTIVE LUNG DISEASE, Hx Bronchitis, Hx COPD, Hx Pneumonia Neurological Medical History: Denies: Hx Cerebrovascular Accident, Hx Seizures Renal/ Medical History: Denies: Hx Peritoneal Dialysis GI Medical History: Reports: Hx Cirrhosis, Hx Gastroesophageal Reflux Disease, Hx Liver Failure, Hx Colonoscopy, Hx Endoscopy Musculoskeletal Medical History: Reports Hx Arthritis - RA, OA, Reports Hx Musculoskeletal Deformity, Reports Hx Musculoskeletal Trauma Traumatic Medical History: Reports: Hx Fractures - Fifth toe left ulnar Past Surgical History: Reports: Hx Breast Surgery - Right breast biopsy, Hx Cholecystectomy - stents in bile ducts, Hx Hysterectomy, Hx Oral Surgery - Immunizations Hx Diphtheria, Pertussis, Tetanus Vaccination: No Hx Pneumococcal Vaccination: 07/08/14 Physical Exam - Vital signs Vitals: Temp Pulse Resp BP Pulse Ox 100.7 F H 97 18 106/54 L 100 02/23/19 14:47 02/23/19 14:47 02/23/19 14:47 02/23/19 14:47 02/23/19 14:47 Course - Re-evaluation Re-evalutation: Patient seen and examined vital signs reviewed. Laboratory data and imaging were ordered as appropriate for the patient's presenting symptoms and complaint, with consideration of any critical or life threatening conditions that may be associated with their obtained history and exam as noted above. Patient was treated with IV fluid bolusing, although the patient had poor IV access, 1 of her lines infiltrated, and we had difficulty obtaining IV access, therefore placed a central venous catheter as the patient was hypotensive and tachycardic, should continue to get IV fluids but remained persistently hypotensive, at this point we placed her on IV norepinephrine, which did seem to help patient's blood pressure to mild degree, she continued to get IV fluids, but then became hypotensive again, therefore increased the patient's norepinephrine, then started her on vasopressin. Her initial chemistry had hemolyzed, when we got back her results finally, demonstrated an acute kidney injury from prior labs, no leukocytosis, mild anemia, but she was noted to be metabolically acidotic, lactic acid came back at 9. Patient blood pressure did seem to improve to a degree to a point she could go over the CT imaging, results came back demonstrating concern for colitis, possible ischemic colitis which is concerning due to the high lactic acid, this could also be C. difficile, this was ordered, but patient has not produced any diarrhea in the ED. Of note the patient was noted to be hypoglycemic as well, concerning for again severe sepsis and septic shock, patient was given a total of 3 A of glucose, this did maintain the patient's blood glucose to greater than 60 I did discuss this case with our in-house surgeon, who felt she should be transferred, given her complex past medical history and her treatment at [facility]. At this point I called the transfer center for [facility], discussed the case with Dr. Smith, the MICU shell shop supervisor, who graciously accepted the patient under service, we discussed patient's past medications, did find the patient was on prednisone, for her rheumatoid arthritis, therefore stress dose steroids with 100 mg of hydrocortisone was ordered, and started the patient on p.o. vancomycin for presumptive C. difficile, patient is allergic to Flagyl, therefore this cannot be given IV. She was given Zosyn previously, initially IV vancomycin was ordered but this was discontinued given that the source of the patient's infection is most likely colitis. The patient was re-evaluated and was improving from a blood pressure standpoint, but still is critically ill Evaluation was most consistent with septic shock, secondary to colitis, acute kidney injury, metabolic acidosis Results were discussed with the patient at this point after careful consideration I feel that that patient should be transferred to [facility] due to need for medical shell shop supervisor, due to complex septic shock, with multisystem organ failure. This was discussed with the patient that it is in the best interest for their care to be transferred, the risks and benefits of transfer were discussed, including but not limited to clinical deterioration during transport, respiratory distress, and potential for traumatic injuries. Patient agreed with this plan of care. *Note is created using voice recognition software and may contain spelling, syntax or grammatical errors. Laboratory 02/23/19 02/23/19 02/23/19 00:40 15:32 15:32 WBC 5.8 RBC 3.65 L Hgb 10.7 L Hct 31.6 L MCV 87 MCH 29.4 MCHC 33.9 RDW 18.2 H Plt Count 90 L Seg Neutrophils % 75.7 Lymphocytes % 14.0 Monocytes % 4.5 Eosinophils % 5.5 Basophils % 0.3 Absolute Neutrophils 4.4 Absolute Lymphocytes 0.8 Absolute Monocytes 0.3 Absolute Eosinophils 0.3 Absolute Basophils 0.0 Sodium Cancelled Potassium Cancelled Chloride Cancelled Carbon Dioxide Cancelled Anion Gap Cancelled BUN Cancelled Creatinine Cancelled Est GFR ( Amer) Cancelled Est GFR (Non-Af Amer) Cancelled Glucose Cancelled POC Glucose Lactic Acid 9.1 H Calcium Cancelled Total Bilirubin Cancelled Direct Bilirubin Cancelled Neonat Total Bilirubin Cancelled Neonat Direct Bilirubin Cancelled Neonat Indirect Bili Cancelled AST Cancelled ALT Cancelled Alkaline Phosphatase Cancelled Total Protein Cancelled Albumin Cancelled Lipase Cancelled 02/23/19 02/23/19 02/24/19 22:00 23:38 01:53 WBC RBC Hgb Hct MCV MCH MCHC RDW Plt Count Seg Neutrophils % Lymphocytes % Monocytes % Eosinophils % Basophils % Absolute Neutrophils Absolute Lymphocytes Absolute Monocytes Absolute Eosinophils Absolute Basophils Sodium 137.1 Potassium 3.6 Chloride 109 H Carbon Dioxide 15 L Anion Gap 13 BUN 9 Creatinine 1.70 H Est GFR ( Amer) 37 L Est GFR (Non-Af Amer) 31 L Glucose 39 L* POC Glucose 68 L 67 L Lactic Acid Calcium 8.6 Total Bilirubin 2.0 H Direct Bilirubin 1.3 H Neonat Total Bilirubin Not Reportable Neonat Direct Bilirubin Not Reportable Neonat Indirect Bili Not Reportable AST 33 ALT 17 Alkaline Phosphatase 136 H Total Protein 6.6 Albumin 2.1 L Lipase 94.1 Abdomen/Pelvis CT 02/23/19 19:50 IMPRESSION: Nodular contour to the liver consistent with cirrhosis. Biliary ductal dilatation. There has been removal of the previously described biliary stents. However, there is a 1.8 cm metallic focus within the proximal duodenum. This could reflect a portion of previously noted biliary stents, correlate with history. Cholelithiasis. Splenomegaly at 15 cm. Nonspecific colitis, most severely affecting the hepatic flexure. Small amount of free fluid. Nondilated to borderline dilated fluid-filled loops of small bowel consistent with ileus.. TECHNICAL DOCUMENTATION: Quality ID # 436: Final reports with documentation of one or more dose reduction techniques (e.g., Automated exposure control, adjustment of the mA and/or kV according to patient size, use of iterative reconstruction technique) copyright 2011 [employer]- All Rights Reserved Chest X-Ray 02/23/19 23:25 IMPRESSION: No significant change from prior study. 02/24/19 03:48 Patient reevaluated, 25 minutes until transport per air care with [facility], patient's current blood pressure is 93/61, with a map of 72, heart rate 107, respirations 17, patient appeared more comfortable, was alert, answering questions appropriately and I believe she is stable for transport at this time on her current medications. - Vital Signs Vital signs: Temp Pulse Resp BP Pulse Ox 100.7 F H 97 29 H 87/53 L 97 02/23/19 14:47 02/23/19 14:47 02/24/19 03:01 02/24/19 03:01 02/24/19 03:01 - Laboratory Result Diagrams: 02/23/19 15:32 02/23/19 22:00 Laboratory results interpreted by me: 02/23/19 02/23/19 02/23/19 00:40 15:32 22:00 RBC 3.65 L Hgb 10.7 L Hct 31.6 L RDW 18.2 H Plt Count 90 L Chloride 109 H Carbon Dioxide 15 L Creatinine 1.70 H Est GFR ( Amer) 37 L Est GFR (Non-Af Amer) 31 L Glucose 39 L* POC Glucose Lactic Acid 9.1 H Total Bilirubin 2.0 H Direct Bilirubin 1.3 H Alkaline Phosphatase 136 H Albumin 2.1 L 02/23/19 02/24/19 23:38 01:53 RBC Hgb Hct RDW Plt Count Chloride Carbon Dioxide Creatinine Est GFR ( Amer) Est GFR (Non-Af Amer) Glucose POC Glucose 68 L 67 L Lactic Acid Total Bilirubin Direct Bilirubin Alkaline Phosphatase Albumin Procedures - Central Line Right Internal jugular Consent obtained: Yes - Verbal Central line pre-insertion: Sterile PPE donned, Chloraprep applied, Sterile drapes applied Central line size (Fr.): 7 Central line lumen type: Triple Anesthetic type: 1% Lidocaine mL's of anesthesia: 1 Ultrasound guided: Yes CM at insertion site: 19 Line secured with sutures: Yes Central line post-insertion: Blood return from lumens, Biopatch applied, Sutur ed, Sterile dressing applied, Position confirmed w/ CXR Number of attempts: 1 Complications: No Notes: Initial chest x-ray is interpreted as the tip being near or in the right atrium, the catheter was withdrawn 1 cm, repeat chest x-ray demonstrated tip daily in same position, but was withdrawn 1 cm, and I feel is in good position to be used at this point. No complications, no ectopy on the patient's monitor, likely at the cavoatrial junction. Critical Care Note - Critical Care Note Total time excluding time spent on procedures (mins): 108 Comments: Critical care time 108 minutes exclusive from separate billable procedures for a patient requiring complex medical decision making, and high potential for clinical deterioration. In a complex medical patient, with hypotension requiring multiple vasopressors, repeat re-evaluations, consult with ICU attending at [facility], and very high potential for deterioration. Time spent obtaining history from patient or surrogate, discussions with consultants, development of treatment plan with patient or surrogate, evaluation of patient's response to treatment, examination of patient, ordering and performing treatments and interventions, ordering and review of laboratory studies, re- evaluation of patient's condition, ordering and review of radiographic studies and review of old charts Discharge - Discharge Clinical Impression: Septic shock, Colitis, PAIGE (acute kidney injury), Hypoglycemia, Thromboc ytopenia Abdominal pain Qualifiers: Abdominal location: unspecified location Qualified Code(s): R10.9 - Unspecified abdominal pain Condition: Critical Disposition: [place] Referrals: OBI NAVARRO PA-C [Primary Care Provider] - Follow up as needed
[2019-02-23] MEDS ORDERED: RINGERS SOLUTION,LACTATED 1,000 ML IV ONE ×2 (19:38→22:16)
[2019-02-23] MEDS ORDERED: HYDROMORPHONE HCL INJ/PF 2 MG/ML AMPULE IV ONE (19:49)
--- NOTE | 2019-02-23 22:17 | RADIOLOGY REPORT (SQ) ---
EXAM DESCRIPTION: XR CHEST 1 VIEW COMPLETED DATE/TME: 02/23/2019 00:00 CLINICAL HISTORY: 58 years, Female, POST CENTRAL LINE PLACEMENT COMPARISON: 07/25/2018 chest x-ray NUMBER OF VIEWS: 1 TECHNIQUE: Portable chest LIMITATIONS: None. FINDINGS: Heart size is normal. Central venous catheter with the tip in the right atrium. Retraction may be of benefit. Lungs are clear. No pneumothorax. IMPRESSION: Tip of the central line in the right atrium. Retraction may be of benefit copyright 2011 [employer]- All Rights Reserved
[2019-02-23 22:40] LABS: ALBUMIN 2.1 g/dL (3.5-5.0); ALKALINE PHOSPHATASE 136 U/L (38-126); ANION GAP 13 (5-19); ASPARTATE AMINO TRANSFERASE 33 U/L (14-36); BILIRUBIN,DIRECT 1.3 mg/dL (0.0-0.4); BLOOD UREA NITROGEN 9 mg/dL (7-20); CALCIUM 8.6 mg/dL (8.4-10.2); CARBON DIOXIDE 15 mmol/L (22-30); CHLORIDE 109 mmol/L (98-107); POTASSIUM 3.6 mmol/L (3.6-5.0); TOTAL PROTEIN 6.6 g/dL (6.3-8.2)
[2019-02-23 22:52] LABS: GLUCOSE 39 mg/dL (75-110)
[2019-02-23] MEDS ORDERED: DEXTROSE 50%-WATER 25 GM/50 ML DISP.SYRIN IV ONE ×4 (22:53→23:48)
[2019-02-23] MEDS ORDERED: DEXTROSE 5%-WATER 250 ML with NOREPINEPHRINE BITARTRATE 4 MG IV PRN ×2 (23:03)
[2019-02-23] MEDS ORDERED: NOREPINEPHRINE BITARTRATE INJ/PF 4 MG/4 ML SDV IV ONE (23:08)
[2019-02-23] MEDS ORDERED: LIDOCAINE 1% INJ-PF (10 MG/ML) 30 ML SDV ONE (23:17)
--- NOTE | 2019-02-24 00:03 | RADIOLOGY REPORT (SQ) ---
EXAM DESCRIPTION: XR CHEST 1 VIEW COMPLETED DATE/TME: 02/23/2019 23:25 CLINICAL HISTORY: 58 years, Female, reposition of cvc COMPARISON: February 23, 2019 9:40 PM FINDINGS: Right IJ central line terminates near the inferior cavoatrial junction, similar position compared to prior study. Mild diffuse prominence of the pulmonary interstitium and cardiac silhouette probably related to decreased lung volumes. No pleural abnormalities. IMPRESSION: No significant change from prior study.
[2019-02-24] MEDS ORDERED: SODIUM BICARBONATE 8.4% INJ 50 MEQ/50 ML DISP.SYRIN IV ONE (00:08)
[2019-02-24] MEDS ORDERED: DEXTROSE 5%-WATER 250 ML with VASOPRESSIN 100 UNIT IV PRN ×2 (00:43)
[2019-02-24] MEDS ORDERED: PIPERACILLIN/TAZOBACTAM 3.375 GM VIAL IV ONE (00:46)
[2019-02-24] MEDS ORDERED: VANCOMYCIN HCL INJ 1000 MG VIAL IV ONE (00:47)
[2019-02-24] MEDS ORDERED: VASOPRESSIN INJ 20 UNIT/1 ML VIAL ONE (00:47)
[2019-02-24] MEDS ORDERED: RINGERS SOLUTION,LACTATED 1,000 ML IV ONE ×2 (01:11→02:16)
--- NOTE | 2019-02-24 01:35 | RADIOLOGY REPORT (SQ) ---
EXAM DESCRIPTION: CT ABDOMEN PELVIS WITH IV CONTRAST COMPLETED DATE/TME: 02/23/2019 19:50 CLINICAL HISTORY: 58 years, Female, EPIGASTRIC AND LEFT LOWER ABDOMINAL PAIN COMPARISON: 11/20/2018 CT TECHNIQUE: 633 Images stored on PACS. All CT scanners at this facility use dose modulation, iterative reconstruction, and/or weight based dosing when appropriate to reduce radiation dose to as low as reasonably achievable (ALARA). [facility]: Dose Right [facility]: CareDose [facility]: Dose Right [facility]: Teradose 4D [facility]: [employer] LIMITATIONS: None. FINDINGS: Visualized lung bases are unremarkable. Multiple old right rib fractures. Osseous structures are otherwise grossly intact. Small hiatal hernia. Mildly distended gallbladder. Cholelithiasis. Interval removal of the biliary stents. Dilated intrahepatic biliary ducts again noted. Small amount of fluid adjacent to the liver, as before. Nodular contour to the liver. Spleen is enlarged at 15 cm. The adrenal glands, pancreas, and kidneys are unremarkable. Liquefied stool throughout colon. There are also nondilated to borderline dilated fluid-filled loops of small bowel diffusely throughout the abdomen without a discrete transition point. Subjective areas of wall thickening of the colon, particularly in the region of the hepatic flexure. Minor surrounding inflammatory change. No free air. Trace of free fluid in the pelvis. Linear metallic 1.8 cm foreign body within the proximal duodenum could reflect a portion of previously noted biliary stent. The appendix is not definitively seen.. IMPRESSION: Nodular contour to the liver consistent with cirrhosis. Biliary ductal dilatation. There has been removal of the previously described biliary stents. However, there is a 1.8 cm metallic focus within the proximal duodenum. This could reflect a portion of previously noted biliary stents, correlate with history. Cholelithiasis. Splenomegaly at 15 cm. Nonspecific colitis, most severely affecting the hepatic flexure. Small amount of free fluid. Nondilated to borderline dilated fluid-filled loops of small bowel consistent with ileus.. TECHNICAL DOCUMENTATION: Quality ID # 436: Final reports with documentation of one or more dose reduction techniques (e.g., Automated exposure control, adjustment of the mA and/or kV according to patient size, use of iterative reconstruction technique) copyright 2011 [employer]- All Rights Reserved
[2019-02-24] MEDS ORDERED: DEXTROSE 50%-WATER 25 GM/50 ML DISP.SYRIN IV ONE (01:55)
[2019-02-24] MEDS ORDERED: METRONIDAZOLE 500 MG/NS RTU 500 MG/100 ML RTUPB IV ONE (02:10)
[2019-02-24] MEDS ORDERED: HYDROCORTISONE SOD SUCCINATE INJ/PF 100 MG/2 ML SDV IV ONE (02:12)
[2019-02-24] MEDS ORDERED: VANCOMYCIN HCL INJ 500 MG VIAL PO ONE (02:13)
[2019-02-24] MEDS ORDERED: VANCOMYCIN HCL INJ 500 MG VIAL ONE (04:15)
[2019-02-24] MEDS ORDERED: NOREPINEPHRINE BITARTRATE INJ/PF 4 MG/4 ML SDV IV ONE (04:34)
[2019-02-24 05:45] VITALS: BP 104/63
== END 2019-02-24 04:55 | disposition short-term general hospital (02) ==
LOC: ER 14:29
DX: K52.9 Noninfective gastroenteritis and colitis, unspecified (principal); R65.21 Severe sepsis with septic shock; N17.9 Acute kidney failure, unspecified; E16.2 Hypoglycemia, unspecified; D69.6 Thrombocytopenia, unspecified; R10.9 Unspecified abdominal pain; R11.2 Nausea with vomiting, unspecified; E78.00 Pure hypercholesterolemia, unspecified; Z90.49 Acquired absence of other specified parts of digestive tract; Z90.710 Acquired absence of both cervix and uterus
CPT/HCPCS: 36415; 87040; 82962; 83690; 85025; 87077; 80053; 83605; 71045; 74177; 36556; C1751; J3490 ×6; J1720; J1885; J2405; J3370; J7060 ×2; J7030; J7120 ×2; J2543; 96361; 96365; 96366; 96368; 96375; 96376; 99291; 99292

== ENCOUNTER 2019-03-16 23:35 | Inpatient (IN) | payer BC, MEDICARE, MEDICAID ==
--- NOTE | 2019-03-16 23:59 | ER Document Report ---
ED General - General Chief Complaint: Low Blood Pressure Stated Complaint: LOW BLOOD PRESSURE ISSUES Time Seen by Provider: 03/16/19 23:59 Primary Care Provider: OBI NAVARRO PA-C [Primary Care Provider] - Follow up as needed Mode of Arrival: Stretcher Information source: Patient, Relative Notes: HISTORY OF PRESENT ILLNESS: Patient is a 58-year-old female with a past medical history of primary sclerosing cholangitis and recent diverticulitis with sepsis who presents with recurrent abdominal pain with fevers and chills prior to arrival. Location: Left-sided abdomen Onset: Sudden Alleviation: None Provocation: Movement Quality: Aching, pressure, cramping Radiation: None Severity: Severe Timing: Constant History of abdominal surgery: None Associated symptoms: Nausea but no vomiting, fever prior to arrival that improved after Tylenol, no diarrhea, no chest pain or shortness of breath Last bowel movement: Today and normal REVIEW OF SYSTEMS: CONSTITUTIONAL : Denies fever or chills, no sweats. Denies recent illness. EENT: Denies eye, ear, throat, or mouth pain or symptoms. Denies nasal or sinus congestion. CARDIOVASCULAR: Denies chest pain. Denies swelling of the legs. RESPIRATORY: Denies cough, cold, or chest congestion. Denies shortness of b reath or difficulty breathing. Denies wheezing. GASTROINTESTINAL: Positive for abdominal pain. Positive for nausea but no vomiting or diarrhea. Denies constipation. GENITOURINARY: Denies difficulty urinating, painful urination, burning, frequency, or blood in urine. FEMALE GENITOURINARY: Denies vaginal bleeding, abnormal or irregular periods. MUSCULOSKELETAL: Denies neck or back pain or joint pain or swelling. SKIN: Denies rash or skin lesions. HEMATOLOGIC : Denies easy bruising or bleeding. LYMPHATIC: Denies swollen, enlarged glands. NEUROLOGICAL: Denies altered mental status or loss of consciousness. Denies headache. Denies weakness or paralysis or loss of use of either side. Denies problems with gait or speech. Denies sensory or motor loss. PSYCHIATRIC: Denies anxiety or stress or depression. All other systems reviewed and negative. PHYSICAL EXAMINATION: GENERAL: Weak-appearing, well-nourished and in moderate acute distress. HEAD: Atraumatic, normocephalic. No scalp deformity, depression, or crepitance. EYES: Pupils are 3 mm and equal/round/reactive to light, extraocular movements intact, sclera anicteric, conjunctiva are normal. ENT: Nares patent bilaterally, oropharynx. Moist mucous membranes. No tonsil hypertrophy. NECK: Normal range of motion, supple without lymphadenopathy. LUNGS: Breath sounds present, equal, and clear to auscultation bilaterally. No wheezes, rales, or rhonchi. HEART: Regular rate and rhythm without murmurs, rubs, or gallops. 2+ peripheral pulses. Normal capillary refill. ABDOMEN: Soft and nondistended, mild to moderate tenderness in the left upper and lower quadrants, no rigidity. Normoactive bowel sounds. No guarding, no rebound. No masses appreciated. BACK: Normal contour, no midline tenderness. Rectal exam deferred. GENITAL/PELVIC: Deferred. EXTREMITIES: Normal range of motion, no pitting or edema. No cyanosis. NEUROLOGICAL: No focal neurological deficits. Moves all extremities spontaneously and on command. PSYCH: Normal mood, normal affect. No suicidal thoughts/ideations. No homicidal thoughts/ideations. No hallucinations. SKIN: Warm, dry, normal turgor, no rashes or lesions noted. ASSESSMENT AND PLAN: This patient is a 58-year-old female who presents with left-sided abdominal pain similar to her previous episode of diverticulitis from 2 weeks ago. 1. Will obtain labs, urine, blood cultures, lactic acid, and CT scan of the abdomen/pelvis. 2. Will give IV fluids and empiric antibiotics. TRAVEL OUTSIDE OF THE [place] IN LAST 30 DAYS: No - HPI Onset: Just prior to arrival Onset/Duration: Sudden Quality of pain: Cramping, Fullness, Pressure Severity: Severe Pain Level: 5 Associated symptoms: Body/muscle aches, Chills, Fever, Nausea, Weakness Exacerbated by: Denies Relieved by: Denies Similar symptoms previously: Yes Recently seen / treated by doctor: Yes - Related Data Allergies/Adverse Reactions: propoxyphene napsylate [From Darvocet-N 100] Allergy (Intermediate, Verified 11/29/18 18:47) metronidazole [From Flagyl] Allergy (Mild, Verified 11/29/18 18:47) nausea and headache Metronidazole HCl [From Flagyl] Allergy (Mild, Verified 11/29/18 18:47) nausea and headache Past Medical History - General Information source: Patient, Relative - Social History Smoking Status: Never Smoker Chew tobacco use (# tins/day): No Frequency of alcohol use: None Drug Abuse: None Lives with: Family Family History: Hypertension - Past Medical History Cardiac Medical History: Reports: Hx Hypercholesterolemia Denies: Hx Heart Attack, Hx Hypertension Pulmonary Medical History: Reports: None Denies: Hx Asthma - MILD RESTRICTIVE LUNG DISEASE, Hx Bronchitis, Hx COPD, Hx Pneumonia EENT Medical History: Reports: None Neurological Medical History: Reports: None. Denies: Hx Cerebrovascular Accident, Hx Seizures Endocrine Medical History: Reports: None Renal/ Medical History: Reports: None. Denies: Hx Peritoneal Dialysis Malignancy Medical History: Reports: None GI Medical History: Reports: Hx Cirrhosis, Hx Gastroesophageal Reflux Disease, Hx Liver Failure, Hx Colonoscopy, Hx Endoscopy Musculoskeletal Medical History: Reports Hx Arthritis - RA, OA, Reports Hx Musculoskeletal Deformity, Reports Hx Musculoskeletal Trauma Skin Medical History: Reports None Psychiatric Medical History: Reports: None Traumatic Medical History: Reports: Hx Fractures - Fifth toe left ulnar Infectious Medical History: Reports: None Past Surgical History: Reports: Hx Breast Surgery - Right breast biopsy, Hx Cholecystectomy - stents in bile ducts, Hx Hysterectomy, Hx Oral Surgery - Immunizations Hx Diphtheria, Pertussis, Tetanus Vaccination: No Hx Pneumococcal Vaccination: 07/08/14 Review of Systems - Review of Systems Constitutional: No symptoms reported EENT: No symptoms reported Cardiovascular: No symptoms reported Respiratory: No symptoms reported Gastrointestinal: See HPI, Abdominal pain, Nausea Genitourinary: No symptoms reported Female Genitourinary: No symptoms reported Musculoskeletal: No symptoms reported Skin: No symptoms reported Hematologic/Lymphatic: No symptoms reported Neurological/Psychological: No symptoms reported -: Yes All other systems reviewed and negative Physical Exam - Vital signs Vitals: Resp Pulse Ox 18 100 03/17/19 00:17 03/17/19 00:17 Interpretation: Normal - General General appearance: Appears well, Alert - HEENT Head: Normocephalic, Atraumatic Eyes: Normal Pupils: PERRL - Respiratory Respiratory status: No respiratory distress Chest status: Nontender Breath sounds: Normal Chest palpation: Normal - Cardiovascular Rhythm: Regular Heart sounds: Normal auscultation Murmur: No - Abdominal Inspection: Normal Distension: No distension Bowel sounds: Normal Tenderness: Nontender Organomegaly: No organomegaly - Back Back: Normal, Nontender - Extremities General upper extremity: Normal inspection, Nontender, Normal color, Normal ROM, Normal temperature General lower extremity: Normal inspection, Nontender, Normal color, Normal ROM, Normal temperature, Normal weight bearing. No: Anneliese's sign - Neurological Neuro grossly intact: Yes Cognition: Normal Orientation: AAOx4 Weir Coma Scale Eye Opening: Spontaneous Annel Coma Scale Verbal: Oriented Annel Coma Scale Motor: Obeys Commands Weir Coma Scale Total: 15 Speech: Normal Motor strength normal: LUE, RUE, LLE, RLE Sensory: Normal - Psychological Associated symptoms: Normal affect, Normal mood - Skin Skin Temperature: Warm Skin Moisture: Dry Skin Color: Normal Course - Re-evaluation Re-evalutation: 03/17/19 06:12 CT scan is pending. Patient is already received IV fluids as well as both vancomycin and Zosyn. Signout has been given. - Vital Signs Vital signs: Temp Pulse Resp BP Pulse Ox 98.5 F 20 100/57 L 100 03/17/19 00:38 03/17/19 05:50 03/17/19 05:50 03/17/19 05:50 - Laboratory Result Diagrams: 03/17/19 00:05 03/17/19 04:13 Laboratory results interpreted by me: 03/17/19 03/17/19 03/17/19 00:05 00:05 00:05 RBC 3.23 L Hgb 8.8 L Hct 26.6 L RDW 19.8 H Plt Count 103 L Seg Neuts % (Manual) 79 H PT 23.8 H APTT 41.8 H Sodium Potassium Chloride Carbon Dioxide BUN Est GFR (MDRD) Non-Af Glucose Lactic Acid 3.7 H Calcium Total Bilirubin Direct Bilirubin AST Alkaline Phosphatase Total Protein Albumin 03/17/19 03/17/19 03/17/19 02:10 04:13 04:13 RBC Hgb Hct RDW Plt Count Seg Neuts % (Manual) PT APTT Sodium 114.7 L* Potassium 2.6 L* 3.4 L Chloride 88 L 111 H Carbon Dioxide 16 L 17 L BUN 3 L 4 L Est GFR (MDRD) Non-Af 53 L Glucose 961 H* Lactic Acid 3.7 H Calcium 6.3 L* 8.1 L Total Bilirubin 4.3 H 5.6 H Direct Bilirubin 3.5 H 4.6 H AST 39 H Alkaline Phosphatase 171 H Total Protein 5.4 L Albumin 1.8 L 2.7 L - Diagnostic Test Radiology reviewed: Pending - EKG Interpretation by Me EKG shows normal: Sinus rhythm Rate: Tachycardia Rhythm: NSR [place]/QRS: No: Right axis deviation, Left axis deviation, RBBB, LBBB, IVCD, LAHB/LAFB, LPHB/LPFB, Bifasicular block Voltage: No: Increased voltage, Consistant with LVH, Decreased voltage, Throughout, Limb leads P Waves: No: LUKAS, LAE, Absent, AV Dissociation, Other Heart block present: No: 1st Degree, Mobitz 1, Mobitz 2, CHB (3rd degree block) When compared to previous EKG there are: No significant change - Transfer of Care Care transferred to following provider: Dr. Mccall Discharge - Discharge Clinical Impression: Primary sclerosing cholangitis Abdominal pain Qualifiers: Abdominal location: lower abdomen, unspecified Qualified Code(s): R10.30 - Lower abdominal pain, unspecified Condition: Stable Disposition: ADMITTED INPATIENT Referrals: OBI NAVARRO PA-C [Primary Care Provider] - Follow up as needed
[2019-03-17] MEDS ORDERED: NORMAL SALINE 1000 ML 3,000 ML IV ONE (00:01)
[2019-03-17] MEDS ORDERED: VANCOMYCIN HCL INJ 1000 MG VIAL IV ONE (00:02)
[2019-03-17] MEDS ORDERED: PIPERACILLIN/TAZOBACTAM 3.375 GM VIAL IV ONE (00:02)
--- NOTE | 2019-03-17 00:44 | RADIOLOGY REPORT (SQ) ---
XR CHEST 1 VIEW EXAM DATE: 03/17/2019 12:01 AM CDT HISTORY: Sepsis. COMPARISON: 02/23/2019 FINDINGS: The heart size is mildly enlarged. No consolidation, pleural effusion, or pneumothorax is seen. The bony thorax is intact. The right central venous line has been removed. IMPRESSION: No evidence of acute cardiopulmonary disease.
[2019-03-17 00:48] LABS: HEMATOCRIT 26.6 % (36.0-47.0); HEMOGLOBIN 8.8 g/dL (12.0-15.5); MEAN CORPUSCULAR HEMOGLOBIN 27.3 pg (27.0-33.4); MEAN CORPUSCULAR HGB CONC 33.2 g/dL (32.0-36.0); PLATELET COUNT 103 10^3/uL (150-450); RED BLOOD COUNT 3.23 10^6/uL (3.72-5.28); RED CELL DISTRIBUTION WIDTH 19.8 % (11.5-14.0); WHITE BLOOD COUNT 4.9 10^3/uL (4.0-10.5)
[2019-03-17 00:58] LABS: INTERNATIONAL RATION (INR) 2.08; PROTHROMBIN TIME 23.8 SEC (11.4-15.4)
[2019-03-17 00:59] LABS: PARTIAL THROMBOPLASTIN TIME 41.8 SEC (23.5-35.8)
[2019-03-17 01:35] LABS: MEAN CORPUSCULAR VOLUME 82 fl (80-97)
[2019-03-17 01:53] LABS: ABSOLUTE LYMPHOCYTES# (MANUAL) 0.6 10^3/uL (0.5-4.7); ABSOLUTE MONOCYTES # (MANUAL) 0.4 10^3/uL (0.1-1.4); BASOPHILS % (MANUAL) 0 % (0-2); EOSINOPHILS % (MANUAL) 0 % (0-6); LYMPHOCYTES % (MANUAL) 13 % (13-45); MONOCYTES % (MANUAL) 8 % (3-13); SEGMENTED NEUTROPHILS % (MAN) 79 % (42-78); TOTAL CELLS COUNTED 100
[2019-03-17 01:54] LABS: TOXIC VACUOLATION PRESENT
[2019-03-17 01:55] LABS: PLATELET COMMENT DECREASED
[2019-03-17 01:56] LABS: ANISOCYTOSIS 2+
[2019-03-17 01:59] LABS: TARGET CELLS SLIGHT; TEAR DROP CELLS SLIGHT
[2019-03-17 04:46] LABS: ALBUMIN 2.7 g/dL (3.5-5.0); ALKALINE PHOSPHATASE 171 U/L (38-126); ANION GAP 12 (5-19); ASPARTATE AMINO TRANSFERASE 39 U/L (14-36); BILIRUBIN,DIRECT 4.6 mg/dL (0.0-0.4); BILIRUBIN,TOTAL 5.6 mg/dL (0.2-1.3); BLOOD UREA NITROGEN 4 mg/dL (7-20); CALCIUM 8.1 mg/dL (8.4-10.2); CARBON DIOXIDE 17 mmol/L (22-30); CHLORIDE 111 mmol/L (98-107); GLUCOSE 107 mg/dL (75-110); POTASSIUM 3.4 mmol/L (3.6-5.0); TOTAL PROTEIN 7.5 g/dL (6.3-8.2)
[2019-03-17 05:55] LABS: APPEARANCE,URINE CLEAR; BILIRUBIN,URINE NEGATIVE (NEGATIVE); GLUCOSE, URINE NEGATIVE (NEGATIVE); KETONES,URINE NEGATIVE (NEGATIVE); LEUKOCYTE ESTERASE,URINE NEGATIVE (NEGATIVE); NITRITE,URINE NEGATIVE (NEGATIVE); PROTEIN,URINE NEGATIVE (NEGATIVE); URINE SPECIFIC GRAVITY 1.006; UROBILINOGEN,URINE NEGATIVE mg/dL (<2.0)
[2019-03-17 06:00] LABS: COLOR,URINE DARK YELLOW
--- NOTE | 2019-03-17 06:48 | RADIOLOGY REPORT (SQ) ---
CT abdomen and pelvis with contrast on 03/17/2019 at 5:18 AM CLINICAL INDICATION: Sepsis TECHNIQUE: Multiple axial images are obtained throughout the abdomen and pelvis following the administration of IV contrast, 94 mL of Omnipaque 350 contrast was administered intravenously without complication. This exam was performed according to our departmental dose-optimization program, which includes automated exposure control, adjustment of the mA and/or kV according to patient size and/or use of iterative reconstruction technique. Total DLP is 1796.16 mGy*cm. COMPARISON: 02/24/2019 FINDINGS: Abdomen: There is mild bibasilar atelectasis. There is partially imaged likely subcarinal adenopathy. There is trace right pleural effusion. There are multiple borderline enlarged pericardial and peridiaphragmatic lymph nodes in the right lower chest anteriorly. There is atrophy of the left hepatic lobe as compared to the right. There is preferential greater biliary ductal dilatation in the left hepatic lobe as compared to the right. There is heterogeneous density in the central liver raising a question of malignancy as etiology of the above findings. If not previously performed consider follow-up liver protocol MRI with and without contrast. Gallstone is noted in the gallbladder. Moderate to large amount of ascites is noted throughout the abdomen and pelvis. Splenomegaly is noted with the spleen measuring 15.8 cm in greatest [id number] length. There is somewhat irregular contour of especially the left hepatic lobe that could just be related to the atrophy but could be related to changes of cirrhosis. Solid abdominal organs are otherwise unremarkable. There is a linear density again within the junction of the second and third portion of the duodenum that may represent retained foreign body from a prior stent. There is no free air. There is no abdominal adenopathy. The abdominal portion of the GI tract is otherwise unremarkable. Pelvis: Large amount of ascites is noted in the pelvis. There is apparent peritoneal thickening and enhancement of the peritoneum in the pelvis raising question of peritonitis. Patient is status post hysterectomy. There is no pelvic adenopathy. Pelvic portion of the GI tract including the appendix is unremarkable. No acute bony abnormality is noted. IMPRESSION: 1. Moderate to large amount of ascites throughout the abdomen and pelvis with some peritoneal thickening and enhancement in the pelvis raising question of peritonitis, consider correlation with paracentesis. 2. Partially imaged likely subcarinal adenopathy with pericardial and peridiaphragmatic adenopathy with abnormal appearance of the liver as above concerning for malignancy. If not previously performed consider liver protocol MRI with and without contrast. 3. Splenomegaly. 4. Cholelithiasis.
--- NOTE | 2019-03-17 08:16 | EKG REPORT ---
SEVERITY:- BORDERLINE ECG - SINUS TACHYCARDIA TALL R WAVE IN V2, CONSIDER RVH OR PMI BORDERLINE PROLONGED QT INTERVAL : Confirmed by: Belem Gu MD 17-Mar-2019 08:15:11
--- NOTE | 2019-03-17 08:59 | ER Document Report ---
ED General - General Chief Complaint: Low Blood Pressure Stated Complaint: LOW BLOOD PRESSURE ISSUES Time Seen by Provider: 03/16/19 23:59 Primary Care Provider: OBI NAVARRO PA-C [Primary Care Provider] - Follow up as needed Mode of Arrival: Stretcher Notes: The patient was signed out to me at shift change by ongoing physician for patient with sepsis abdominal pain. TRAVEL OUTSIDE OF THE [place] IN LAST 30 DAYS: No - Related Data Allergies/Adverse Reactions: propoxyphene napsylate [From Darvocet-N 100] Allergy (Intermediate, Verified 11/29/18 18:47) metronidazole [From Flagyl] Allergy (Mild, Verified 11/29/18 18:47) nausea and headache Metronidazole HCl [From Flagyl] Allergy (Mild, Verified 11/29/18 18:47) nausea and headache Past Medical History - General Information source: Patient, Relative - Social History Smoking Status: Never Smoker Chew tobacco use (# tins/day): No Frequency of alcohol use: None Drug Abuse: None Lives with: Family Family History: Hypertension Patient has suicidal ideation: No Patient has homicidal ideation: No - Past Medical History Cardiac Medical History: Reports: Hx Hypercholesterolemia Denies: Hx Heart Attack, Hx Hypertension Pulmonary Medical History: Reports: None Denies: Hx Asthma - MILD RESTRICTIVE LUNG DISEASE, Hx Bronchitis, Hx COPD, Hx Pneumonia EENT Medical History: Reports: None Neurological Medical History: Reports: None. Denies: Hx Cerebrovascular Accident, Hx Seizures Endocrine Medical History: Reports: None Renal/ Medical History: Reports: None. Denies: Hx Peritoneal Dialysis Malignancy Medical History: Reports: None GI Medical History: Reports: Hx Cirrhosis, Hx Gastroesophageal Reflux Disease, Hx Liver Failure, Hx Colonoscopy, Hx Endoscopy Musculoskeletal Medical History: Reports Hx Arthritis - RA, OA, Reports Hx Musculoskeletal Deformity, Reports Hx Musculoskeletal Trauma Skin Medical History: Reports None Psychiatric Medical History: Reports: None Traumatic Medical History: Reports: Hx Fractures - Fifth toe left ulnar Infectious Medical History: Reports: None Past Surgical History: Reports: Hx Breast Surgery - Right breast biopsy, Hx Cholecystectomy - stents in bile ducts, Hx Hysterectomy, Hx Oral Surgery - Immunizations Hx Diphtheria, Pertussis, Tetanus Vaccination: No Hx Pneumococcal Vaccination: 07/08/14 Review of Systems - Review of Systems Constitutional: Chills, Fever Gastrointestinal: Abdomen distended, Diarrhea, Nausea, Vomiting -: Yes All other systems reviewed and negative Physical Exam - Vital signs Vitals: Pulse BP 98 65/36 L 03/16/19 23:41 03/16/19 23:41 - Notes Notes: Abdomen is mildly distended on my exam there is tenderness in all 4 quadrants no rebound or guarding is noted. Skin is warm and dry patient is conversant. Course - Re-evaluation Re-evalutation: 03/17/19 08:56 The patient arrives and appears to be septic. The patient was seen by prior physician was signed out to me. CT scan is come back which shows ascites. Patient has a known history of primary sclerosing cholangitis. She was recently at [facility] for this and was discharged on the first. I have called [facility] and they will accept the patient back over the bed status is tight. They do not anticipate a bed for 24 to 48 hours. They recommend admission to ICU and continued resuscitation. They will likely place the patien t in a stepdown bed. Accepting Doctor - Dr Jara I have spoken with our intensive care physician here at [facility]. They will accept the patient to their able to be transferred to [facility]. We will continue with IV fluids and sepsis medications and antibiotics. - Vital Signs Vital signs: Temp Pulse Resp BP Pulse Ox 98.5 F 104 H 19 101/65 99 03/17/19 06:00 03/17/19 00:15 03/17/19 08:10 03/17/19 08:10 03/17/19 08:10 - Laboratory Result Diagrams: 03/17/19 00:05 03/17/19 04:13 Laboratory results interpreted by me: 03/17/19 03/17/19 03/17/19 00:05 00:05 00:05 RBC 3.23 L Hgb 8.8 L Hct 26.6 L RDW 19.8 H Plt Count 103 L Seg Neuts % (Manual) 79 H PT 23.8 H APTT 41.8 H Sodium Potassium Chloride Carbon Dioxide BUN Est GFR (MDRD) Non-Af Glucose Lactic Acid 3.7 H Calcium Total Bilirubin Direct Bilirubin AST Alkaline Phosphatase Total Protein Albumin 03/17/19 03/17/19 03/17/19 02:10 04:13 04:13 RBC Hgb Hct RDW Plt Count Seg Neuts % (Manual) PT APTT Sodium 114.7 L* Potassium 2.6 L* 3.4 L Chloride 88 L 111 H Carbon Dioxide 16 L 17 L BUN 3 L 4 L Est GFR (MDRD) Non-Af 53 L Glucose 961 H* Lactic Acid 3.7 H Calcium 6.3 L* 8.1 L Total Bilirubin 4.3 H 5.6 H Direct Bilirubin 3.5 H 4.6 H AST 39 H Alkaline Phosphatase 171 H Total Protein 5.4 L Albumin 1.8 L 2.7 L Discharge - Discharge Clinical Impression: Primary sclerosing cholangitis Abdominal pain Qualifiers: Abdominal location: lower abdomen, unspecified Qualified Code(s): R10.30 - Lower abdominal pain, unspecified Sepsis Qualifiers: Sepsis type: sepsis due to unspecified organism Sepsis acute organ dysfunction status: with acute organ dysfunction Condition: Stable Disposition: ADMITTED INPATIENT Admitting Provider: ICU Doctor Unit Admitted: ICU Referrals: OBI NAVARRO PA-C [Primary Care Provider] - Follow up as needed
[2019-03-17] MEDS ORDERED: ACETAMINOPHEN 325 MG TABLET PO PRN (10:39)
[2019-03-17] MEDS ORDERED: VANCOMYCIN HCL 0 MG in DEXTROSE 5%-WATER 250 ML IV NR (10:45)
[2019-03-17] MEDS: PANTOPRAZOLE SODIUM 20 MG TABLET.DR PO SCH (11:47)
--- NOTE | 2019-03-17 11:58 | RADIOLOGY REPORT (SQ) ---
EXAM DESCRIPTION: CHEST SINGLE VIEW COMPLETED DATE/TIME: 03/17/2019 11:49 am REASON FOR STUDY: sepsis COMPARISON: 03/17/2019 NUMBER OF VIEWS: One view. TECHNIQUE: Single frontal radiographic image of the chest acquired. LIMITATIONS: None. FINDINGS: LUNGS AND PLEURA: Stable appearance. MEDIASTINUM AND HILAR STRUCTURES: Stable heart size and mediastinal structures. HEART AND VASCULAR STRUCTURES: Stable appearance. SUPPORT DEVICES: Appropriate location without change. BONES: No acute findings. OTHER: No other significant finding. IMPRESSION: STABLE APPEARANCE OF THE CHEST. SUPPORT DEVICES UNCHANGED. TECHNICAL DOCUMENTATION: JOB ID: [id number] [employer]- All Rights Reserved Reading location - IP/workstation name: [email or web address]
[2019-03-17] MEDS ORDERED: VANCOMYCIN HCL 1,000 MG in DEXTROSE 5%-WATER 250 ML IV ONE (13:00)
[2019-03-17] MEDS: PIPERACILLIN SODIUM/TAZOBACTAM 4.5 GM in NORMAL SALINE 100 ML IV SCH ×3 (13:02→23:18)
[2019-03-17] MEDS ORDERED: PHYTONADIONE INJ 1 MG/0.5 ML AMPULE INJ ONE (13:19)
[2019-03-17] MEDS ORDERED: PHYTONADIONE INJ 10 MG/1 ML AMPULE SUBCUT ONE (13:30)
[2019-03-17] MEDS: RINGERS SOLUTION,LACTATED 1,000 ML IV PRN (16:00)
[2019-03-17] MEDS: HYDROMORPHONE HCL INJ/PF 2 MG/ML AMPULE IV PRN ×2 (17:25→23:18)
[2019-03-17] MEDS: NYSTATIN/DEXAMETH/DIPHEN SUSP 120 ML PO SCH ×2 (18:11→22:21)
--- NOTE | 2019-03-17 21:00 | EKG REPORT ---
SEVERITY:- BORDERLINE ECG - SINUS RHYTHM BORDERLINE PROLONGED QT INTERVAL : Confirmed by: Belem Gu MD 17-Mar-2019 20:59:47
[2019-03-17] MEDS: VANCOMYCIN HCL 750 MG in DEXTROSE 5%-WATER 250 ML IV SCH (22:20)
[2019-03-18] MEDS: RINGERS SOLUTION,LACTATED 1,000 ML IV PRN ×2 (05:25→18:08)
[2019-03-18] MEDS: PANTOPRAZOLE SODIUM 20 MG TABLET.DR PO SCH (06:30)
[2019-03-18] MEDS: PIPERACILLIN SODIUM/TAZOBACTAM 4.5 GM in NORMAL SALINE 100 ML IV SCH ×4 (06:33→23:45)
[2019-03-18] MEDS: NYSTATIN/DEXAMETH/DIPHEN SUSP 120 ML PO SCH ×4 (09:57→21:27)
[2019-03-18] MEDS: VANCOMYCIN HCL 750 MG in DEXTROSE 5%-WATER 250 ML IV SCH ×2 (09:57→21:27)
[2019-03-18] MEDS: HYDROMORPHONE HCL INJ/PF 2 MG/ML AMPULE IV PRN (09:58)
--- NOTE | 2019-03-18 12:33 | RADIOLOGY REPORT (SQ) ---
EXAM DESCRIPTION: U/S ABD PARACENTESIS COMPLETED DATE/TIME: 03/18/2019 11:25 am REASON FOR STUDY: moderate to large ascites, fever COMPARISON None. LIMITATIONS: None. PROCEDURE: After obtaining informed consent, the patient was brought to the ultrasound suite. The p rocedure was performed with the patient on a gurney. Ultrasound was used to identify a prominent poc ket of ascites in the right lower quadrant. An appropriate access site was selected. The patient wa s prepped and draped in usual sterile fashion. The access site was anesthetized with 10 mL 1% lidoc francia. A Ifup-M-Dveqtocs needle was advanced into the fluid. After aspiration of fluid the needle, t he catheter was advanced off the needle into the fluid. A total of 1800 mL of dark straw colored flu id was removed. The patient tolerated the procedure well left the department in satisfactory conditio n. IMPRESSION: Successful ultrasound-guided diagnostic paracentesis. COMMENT: Patient medication list reviewed: Yes- Quality ID# [id number]:Eligible professional attests to doc umenting in the medical record they obtained, updated, or reviewed the patient's current medications. TECHNICAL DOCUMENTATION: JOB ID: [id number] [employer]- All Rights Reserved Reading location - IP/workstation name: [email or web address]
[2019-03-18] MEDS ORDERED: PIPERACILLIN SODIUM/TAZOBACTAM 4.5 GM in NORMAL SALINE 100 ML IV ONE (14:15)
[2019-03-18 14:26] LABS: FLUID APPEARANCE CLEAR; FLUID COLOR YELLOW; FLUID SOURCE ASCITES; FLUID TYPE PERITONEAL; FLUID VISCOSITY LIQUID
[2019-03-19 04:01] LABS: ABSOLUTE BASOPHILS # (AUTO) 0.1 10^3/uL (0.0-0.2); ABSOLUTE EOSINOPHILS # (AUTO) 0.7 10^3/uL (0.0-0.6); ABSOLUTE LYMPHOCYTES (AUTO) 1.5 10^3/uL (0.5-4.7); ABSOLUTE MONOCYTES (AUTO) 1.4 10^3/uL (0.1-1.4); ABSOLUTE NEUT (AUTO) 6.6 10^3/uL (1.7-8.2); BASOPHILS % (AUTO) 1.1 % (0-2); EOSINOPHILS % (AUTO) 6.6 % (0-6); HEMATOCRIT 25.1 % (36.0-47.0); HEMOGLOBIN 8.8 g/dL (12.0-15.5); LYMPHOCYTES % (AUTO) 14.9 % (13-45); MEAN CORPUSCULAR HEMOGLOBIN 28.6 pg (27.0-33.4); MEAN CORPUSCULAR HGB CONC 34.9 g/dL (32.0-36.0); MEAN CORPUSCULAR VOLUME 82 fl (80-97); MONOCYTES % (AUTO) 13.3 % (3-13); PLATELET COUNT 117 10^3/uL (150-450); RED BLOOD COUNT 3.06 10^6/uL (3.72-5.28); RED CELL DISTRIBUTION WIDTH 19.1 % (11.5-14.0); SEGMENTED NEUTROPHILS % (AUTO) 64.1 % (42-78); TOTAL CELLS COUNTED % (AUTO) 100 %
[2019-03-19 04:02] LABS: WHITE BLOOD COUNT 10.3 10^3/uL (4.0-10.5)
[2019-03-19 04:11] LABS: ANION GAP 12 (5-19); BLOOD UREA NITROGEN 11 mg/dL (7-20); CALCIUM 8.8 mg/dL (8.4-10.2); CARBON DIOXIDE 18 mmol/L (22-30); CHLORIDE 109 mmol/L (98-107); GLUCOSE 72 mg/dL (75-110); POTASSIUM 4.3 mmol/L (3.6-5.0)
[2019-03-19] MEDS: PANTOPRAZOLE SODIUM 20 MG TABLET.DR PO SCH (06:40)
[2019-03-19] MEDS: PIPERACILLIN SODIUM/TAZOBACTAM 4.5 GM in NORMAL SALINE 100 ML IV SCH (06:41)
[2019-03-19] MEDS: RINGERS SOLUTION,LACTATED 1,000 ML IV PRN ×2 (08:03→12:10)
[2019-03-19] MEDS: NYSTATIN/DEXAMETH/DIPHEN SUSP 120 ML PO SCH ×4 (10:30→22:52)
[2019-03-19] MEDS: HYDROMORPHONE HCL INJ/PF 2 MG/ML AMPULE IV PRN (10:34)
[2019-03-19] MEDS ORDERED: PIPERACILLIN SODIUM/TAZOBACTAM 2.25 GM in NORMAL SALINE 50 ML IV SCH (12:00)
[2019-03-19] MEDS ORDERED: RINGERS SOLUTION,LACTATED 1,000 ML IV PRN ×2 (14:25→17:48)
[2019-03-19] MEDS ORDERED: ALBUMIN HUMAN 12.5 GM/50 ML RTUINJ IV ONE (15:00)
[2019-03-19] MEDS ORDERED: ACETAMINOPHEN 325 MG TABLET PO PRN (17:04)
[2019-03-19] MEDS ORDERED: ALBUTEROL SULFATE 0.042% NEB (1.25 MG/3 ML) AMPUL NEB PRN (17:04)
--- NOTE | 2019-03-19 17:47 | Progress Note ---
Provider Note Provider Note: Received signout from glaze maker. Assumed care. Is a 58-year-old female with history of sclerosing cholangitis who presented with abdominal pain and fever. She was admitted to the ICU she had initially low blood pressures and was admitted for sepsis. Chart reviewed. Patient was also seen and examined. She is oriented x3. She says her abdominal pain has improved. Vital signs have been stable. She says she had a biliary stent done at [facility] before. Will request records from [facility]. Plan for today: 1. Appears creatinine has trended up after paracentesis. Continue IV fluids with plain LR at 100 cc/h. Repeat BMP tomorrow. We will also give patient albumin. 2. CT scan reviewed and question of possible malignancy in the liver. Will pursue an MRI of the liver. 3. We will continue Zosyn today pending final culture from sample from the paracentesis. 4. Repeat lactic acid level.
[2019-03-19] MEDS ORDERED: URSODIOL 250 MG PO SCH (18:00)
[2019-03-19] MEDS: PIPERACILLIN SODIUM/TAZOBACTAM 3.375 GM in NORMAL SALINE 100 ML IV SCH ×2 (18:14→23:33)
[2019-03-19] MEDS ORDERED: CEFEPIME 1 GM/D5W RTU 1 GM/50 ML RTUPB IV SCH (22:00)
[2019-03-19] MEDS ORDERED: LACTULOSE SYRUP 20 GM/30 ML UDCUP PO SCH (22:00)
[2019-03-20 05:34] LABS: ALBUMIN 3.2 g/dL (3.5-5.0); ALKALINE PHOSPHATASE 144 U/L (38-126); ANION GAP 18 (5-19); ASPARTATE AMINO TRANSFERASE 64 U/L (14-36); BILIRUBIN,DIRECT 8.4 mg/dL (0.0-0.4); BILIRUBIN,TOTAL 9.8 mg/dL (0.2-1.3); BLOOD UREA NITROGEN 15 mg/dL (7-20); CALCIUM 8.9 mg/dL (8.4-10.2); CARBON DIOXIDE 17 mmol/L (22-30); CHLORIDE 108 mmol/L (98-107); POTASSIUM 4.7 mmol/L (3.6-5.0); TOTAL PROTEIN 8.7 g/dL (6.3-8.2)
[2019-03-20] MEDS: PANTOPRAZOLE SODIUM 20 MG TABLET.DR PO SCH (05:59)
[2019-03-20] MEDS: PIPERACILLIN SODIUM/TAZOBACTAM 3.375 GM in NORMAL SALINE 100 ML IV SCH (05:59)
[2019-03-20 06:35] LABS: GLUCOSE 32 mg/dL (75-110)
[2019-03-20] MEDS ORDERED: DEXTROSE 50%-WATER 25 GM/50 ML DISP.SYRIN IV ONE (07:15)
[2019-03-20] MEDS ORDERED: ONDANSETRON HCL INJ/PF 4 MG/2 ML SDV IV ONE (07:15)
[2019-03-20] MEDS ORDERED: ROCURONIUM BROMIDE INJ 50 MG/5 ML VIAL IV ONE ×2 (08:23→22:15)
--- NOTE | 2019-03-20 08:34 | RADIOLOGY REPORT (SQ) ---
EXAM DESCRIPTION: CHEST SINGLE VIEW COMPLETED DATE/TIME: 03/20/2019 8:25 am REASON FOR STUDY: assess for congestion COMPARISON: 03/17/2019 EXAM PARAMETERS: NUMBER OF VIEWS: One view. TECHNIQUE: Single frontal radiographic view of the chest acquired. RADIATION DOSE: NA LIMITATIONS: None. FINDINGS: LUNGS AND PLEURA: Unchanged minimal diffuse interstitial pulmonary opacity. MEDIASTINUM AND HILAR STRUCTURES: No masses. Contour normal. HEART AND VASCULAR STRUCTURES: Cardiomegaly. BONES: No acute findings. HARDWARE: None in the chest. OTHER: No other significant finding. IMPRESSION: Unchanged minimal diffuse interstitial pulmonary opacity which may reflect minimal edema . No focal airspace opacity. Cardiomegaly. TECHNICAL DOCUMENTATION: JOB ID: [id number] [email or web address]- All Rights Reserved Reading location - IP/workstation name: [email or web address]
[2019-03-20 09:40] LABS: HEMATOCRIT 25.4 % (36.0-47.0); HEMOGLOBIN 8.7 g/dL (12.0-15.5); MEAN CORPUSCULAR HEMOGLOBIN 28.1 pg (27.0-33.4); MEAN CORPUSCULAR HGB CONC 34.1 g/dL (32.0-36.0); MEAN CORPUSCULAR VOLUME 83 fl (80-97); RED BLOOD COUNT 3.08 10^6/uL (3.72-5.28); RED CELL DISTRIBUTION WIDTH 19.5 % (11.5-14.0)
[2019-03-20 10:14] LABS: ABSOLUTE LYMPHOCYTES# (MANUAL) 1.2 10^3/uL (0.5-4.7); ABSOLUTE MONOCYTES # (MANUAL) 1.4 10^3/uL (0.1-1.4); BASOPHILS % (MANUAL) 0 % (0-2); EOSINOPHILS % (MANUAL) 1 % (0-6); LYMPHOCYTES % (MANUAL) 12 % (13-45); MONOCYTES % (MANUAL) 16 % (3-13); SEGMENTED NEUTROPHILS % (MAN) 70 % (42-78); TOTAL CELLS COUNTED 100
[2019-03-20 10:58] LABS: ANISOCYTOSIS 2+; OVALOCYTES 1+; PLATELET COMMENT DECREASED; POIKILOCYTOSIS 1+; TARGET CELLS 1+
[2019-03-20 10:59] LABS: PLATELET COUNT 75 10^3/uL (150-450)
[2019-03-20] MEDS ORDERED: ONDANSETRON HCL INJ/PF 4 MG/2 ML SDV IV PRN (11:47)
--- NOTE | 2019-03-20 12:33 | RADIOLOGY REPORT (SQ) ---
EXAM DESCRIPTION: U/S ABDOMEN COMPLETE W/O DOP COMPLETED DATE/TIME: 03/20/2019 12:00 pm REASON FOR STUDY: RUQ US, assess CBD COMPARISON: CT of the abdomen pelvis with contrast from 03/17/2019. TECHNIQUE: Dynamic and static grayscale images acquired of the abdomen and recorded on PACS. Additio nal selected color Doppler and spectral images recorded. Note: Study does not meet criteria for complete doppler/duplex scan LIMITATIONS: None. FINDINGS: PANCREAS: Unable to visualize the pancreas due to overlying bowel gas. LIVER: Nodular contour of the hepatic parenchyma and heterogeneous echotexture. LIVER VASCULATURE: Normal directional flow of the main portal vein and hepatic veins. GALLBLADDER: 1.6 mm calculus within the gallbladder lumen. The gallbladder wall measures 2 mm in thi ckness. There is free fluid in the gallbladder fossa. ULTRASOUND-DETECTED PERERA'S SIGN: Negative. INTRAHEPATIC DUCTS AND COMMON DUCT: CBD and intrahepatic ducts normal caliber. No filling defects. INFERIOR VENA CAVA: Normal flow. AORTA: Unable to visualize the abdominal aorta. RIGHT KIDNEY: No hydronephrosis. PERITONEAL AND PLEURAL SPACES: Ascites. OTHER: No other significant finding. IMPRESSION: Limited ultrasound of the abdomen. The liver has a nodular contour and heterogeneous ec hotexture. There is ascites. There is a 1.6 mm calculus within the gallbladder lumen. The gallbladder wall measures 2 mm in thick ness, which is at the upper limits of normal. The sonographic Perera sign is negative. TECHNICAL DOCUMENTATION: JOB ID: [id number] [facility]- All Rights Reserved Reading location - IP/workstation name: [email or web address]
[2019-03-20 13:21] LABS: LDH BODY FLUID 64 IU/L (.)
[2019-03-20] MEDS ORDERED: LACTULOSE SYRUP 20 GM/30 ML UDCUP PR SCH (13:30)
[2019-03-20] MEDS ORDERED: ALBUMIN HUMAN 12.5 GM/50 ML RTUINJ IV SCH (13:30)
[2019-03-20] MEDS ORDERED: ALBUMIN HUMAN 50 GM/200 ML RTUINJ IV SCH (14:00)
--- NOTE | 2019-03-20 14:24 | PDOC TRANSFER SUMMARY ---
General Admission Date/PCP: 03/17/19 09:16 OBI NAVARRO PA-C - Transfer Diagnosis (1) Hepatic encephalopathy Is this a current diagnosis for this admission?: Yes (2) Primary sclerosing cholangitis Is this a current diagnosis for this admission?: Yes (3) Acute renal failure Is this a current diagnosis for this admission?: Yes (4) Hepatorenal syndrome Is this a current diagnosis for this admission?: Yes (5) Sepsis Is this a current diagnosis for this admission?: Yes - Transfer Medications Home Medications: Acetaminophen [Tylenol 325 mg Tablet] 650 mg PO DAILYP PRN 03/17/19 Albuterol Sulfate [Ventolin 0.042% Neb 1.25 mg/3 mL Ampul] 3 ml NEB RTQ4HP PRN 03/17/19 Benzonatate [Tessalon Perle 100 mg Capsule] 100 mg PO TIDP PRN 03/17/19 Cyclobenzaprine HCl [Flexeril 5 mg Tablet] 5 mg PO QHS 03/17/19 Montelukast Sodium [Singulair 10 mg Tablet] 10 mg PO QPM 03/17/19 Nystatin [Mycostatin 500,000 Unit/5 ml Susp Udcup] 5 ml BUCCAL QID 03/17/19 Omeprazole 20 mg PO QAM 03/17/19 Ursodiol [Sherri] 250 mg PO TID 03/17/19 Transfer Medications: Current Medications Acetaminophen (Tylenol 325 Mg Tablet) 650 mg PO DAILYP PRN PRN Reason: FOR PAIN Stop: 04/18/19 17:03 Albuterol (Ventolin 0.042% Neb 1.25 Mg/3 Ml Ampul) 1.25 mg NEB RTQ4HP PRN PRN Reason: SHORTNESS OF BREATH Stop: 04/18/19 17:03 Diphenhydramine/Hydrocorti/Nystatin (Magic Mouthwash (Omh Formula) Susp) 5 ml PO QID LAURY Stop: 04/16/19 17:59 Last Admin: 03/19/19 22:52 Dose: 5 ml Documented by: Hydromorphone HCl (Dilaudid Inj/Pf 2 Mg/Ml Ampule) 1 mg IV Q4HP PRN PRN Reason: ABDOMINAL CRAMPING Last Admin: 03/19/19 10:34 Dose: 1 mg Documented by: Piperacillin Sod/Tazobactam (Sod 3.375 gm/ Sodium Chloride) 100 mls @ 200 mls/hr IV Q6 LAURY Stop: 03/26/19 17:59 Last Infusion: 03/20/19 06:35 Dose: Infused Documented by: Lactulose (Cephulac Syrup 20 Gm/30 Ml Udcup) 10 gm PO Q12 LAURY Stop: 04/18/19 21:59 Last Admin: 03/19/19 22:52 Dose: 10 gm Documented by: Ondansetron HCl (Zofran Inj/Pf 4 Mg/2 Ml Sdv) 4 mg IV Q6HP PRN PRN Reason: FOR NAUSEA/VOMITING Stop: 04/19/19 11:46 Pantoprazole Sodium (Protonix [address] Tablet) 20 mg PO Q6AM LAURY Stop: 04/16/19 10:59 Last Admin: 03/20/19 05:59 Dose: 20 mg Documented by: Patient Own Medication (Ursodiol [Sherri]) 250 mg PO .TID LAURY Stop: 04/18/19 17:59 Sodium Chloride (Saline Flush 2.5 Ml Monoject Prefil Syrin) 2.5 ml IV Q8 LAURY Stop: 04/16/19 13:59 Last Admin: 03/20/19 05:52 Dose: Not Given Documented by: - Allergies Allergies/Adverse Reactions: propoxyphene napsylate [From Darvocet-N 100] Allergy (Intermediate, Verified 11/29/18 18:47) metronidazole [From Flagyl] Allergy (Mild, Verified 11/29/18 18:47) nausea and headache Hospital Course Hospital Course: This is a 58-year-old female with a past medical history of primary sclerosing cholangitis and biliary stents closely follows up with [facility] gastroenterology who initially presented to the ER with fever, chills and abdominal pain. Patient was initially noted to be hypotensive and hence was admitted to the ICU for pos sible severe sepsis. She also underwent paracenteses in the ICU. She was started on IV Zosyn. She was downgraded from the ICU yesterday as her blood pressures have improved. This morning, patient is more confused. He is arousable but is not conversant and is AAO x0. Her creatinine has been significantly trending up (1.0 -> 2.8 -> 3.4). Her bilirubin has also been significantly increasing initially from 4.3 - > 5.6 and is now up to 9.8. She was given albumin infusion also started on lactulose yesterday. She is is currently being treated for hepatic encephalopathy and possible hepatorenal syndrome vs PAIGE from ATN. Discussed case in length with [facility] devulcanizer operator, Dr. Humphreys who has accepted to transfer. Patient is a potential liver transplant candidate. Also discussed case with Dr. Juarez, [facility] hospitalist who will be admitting patient under their service. Physical Exam Vital Signs: Temp Pulse Resp BP Pulse Ox 98.7 F 110 H 17 120/60 100 03/20/19 00:32 03/20/19 00:32 03/20/19 00:32 03/20/19 00:32 03/20/19 00:32 Intake & Output 03/19/19 03/20/19 03/21/19 06:59 06:59 06:59 Intake Total 1854 3710 Output Total 250 350 Balance 1604 3360 Weight 202 lb 9.677 oz 199 lb 15.348 oz General appearance: PRESENT: no acute distress, other - confused Head exam: PRESENT: atraumatic, normocephalic Eye exam: PRESENT: PERRLA, scleral icterus Ear exam: PRESENT: normal external ear exam Mouth exam: PRESENT: moist, tongue midline Neck exam: ABSENT: carotid bruit, JVD, lymphadenopathy, thyromegaly Respiratory exam: PRESENT: clear to auscultation radha. ABSENT: rales, rhonchi, wheezes Cardiovascular exam: PRESENT: RRR. ABSENT: diastolic murmur, rubs, systolic murmur Pulses: PRESENT: normal dorsalis pedis pul GI/Abdominal exam: PRESENT: ascites, distended, organolmegaly. ABSENT: Perera's sign Rectal exam: PRESENT: deferred Neurological exam: PRESENT: alert, awake, CN II-XII grossly intact. ABSENT: oriented to person, oriented to place, oriented to time, oriented to situation, motor sensory deficit Results Laboratory Results: 03/20/19 08:49 03/20/19 04:54 03/19/19 03/20/19 03/20/19 19:30 04:54 04:54 WBC Cancelled RBC Cancelled Hgb Cancelled Hct Cancelled MCV Cancelled MCH Cancelled MCHC Cancelled RDW Cancelled Plt Count Cancelled Seg Neutrophils % Cancelled Sodium 142.5 Potassium 4.7 Chloride 108 H Carbon Dioxide 17 L Anion Gap 18 BUN 15 Creatinine 3.41 H Est GFR ( Amer) 17 L Glucose 32 L* Lactic Acid 2.6 H Calcium 8.9 Total Bilirubin 9.8 H AST 64 H Alkaline Phosphatase 144 H Total Protein 8.7 H Albumin 3.2 L 03/20/19 08:49 WBC 9.0 RBC 3.08 L Hgb 8.7 L Hct 25.4 L MCV 83 MCH 28.1 MCHC 34.1 RDW 19.5 H Plt Count 75 L Seg Neutrophils % Not Reportable Sodium Potassium Chloride Carbon Dioxide Anion Gap BUN Creatinine Est GFR ( Amer) Glucose Lactic Acid Calcium Total Bilirubin AST Alkaline Phosphatase Total Protein Albumin 03/17/19 03/17/19 00:05 02:10 Troponin I Cancelled < 0.012 Impressions: Abdomen/Pelvis CT 03/17/19 00:01 IMPRESSION: 1. Moderate to large amount of ascites throughout the abdomen and pelvis with some peritoneal thickening and enhancement in the pelvis raising question of peritonitis, consider correlation with paracentesis. 2. Partially imaged likely subcarinal adenopathy with pericardial and peridiaphragmatic adenopathy with abnormal appearance of the liver as above concerning for malignancy. If not previously performed consider liver protocol MRI with and without contrast. 3. Splenomegaly. 4. Cholelithiasis. Paracentesis Ultrasound 03/18/19 00:00 IMPRESSION: Successful ultrasound-guided diagnostic paracentesis. Chest X-Ray 03/20/19 06:00 IMPRESSION: Unchanged minimal diffuse interstitial pulmonary opacity which may reflect minimal edema. No focal airspace opacity. Cardiomegaly.
[2019-03-20] MEDS ORDERED: GLUCAGON,HUMAN RECOMB 1 MG INJ ONE (16:29)
--- NOTE | 2019-03-20 16:31 | PDOC CONSULTATION ---
Consultation Consult Date: 03/20/19 Provider Consulted: JUVE LUJAN Consult reason:: I was asked to see the patient because of acute kidney injury. History of Present Illness Admission Date/PCP: 03/17/19 09:16 OBI NAVARRO PA-C History of Present Illness: IFEANYI ISRAEL is a 58 year old female with history of primary sclerosing cholangitis with biliary stent placement followed by [facility] pathology who presented to the emergency room on March 17 with fever, chills and abdominal pain. History is obtained from medical records since the patient currently has altered mentation and unable to give any information and is currently not verbalizing anything at all. On admission the patient was noted to be slightly hypotensive. She also presented with hyponatremia, hyperkalemia, metabolic acidosis and hypocalcemia. Initial impression was sepsis so patient was admitted to the ICU. Etiology of infection is currently still unknown with blood culture so far negative. Patient was given IV fluid boluses. She was also started on IV Zosyn which is continued until now. She was also given IV vancomycin from March 17 to March 18. Patient also has ascites and so a paracentesis was done on 03/18 obtaining about 1800 mL of peritoneal fluid. Subsequently the patient was downgraded from the ICU to the floor. According to the floor nurse the patient was awake yesterday when she came in but today she is barely arousable. She also has episode of hypoglycemia earlier today with blood sugar as low as 32 and after D50 went up to 130 but currently still 67 and unfortunately the patient does not have an IV access yet. In terms of the patient's kidney function she came in with normal kidney function with BUN of 3 and creatinine of 0.83. For the last 3 days her kidney function has continuously deteriorated. Her BUN has always been within acceptable normal limits. Her creatinine though started to creep up to 1.07 later on in the day of admission, 2.82 yesterday and currently at 3.41. Patient vancomycin trough level was very elevated at 48 on March 19 and subsequently vancomycin was discontinued since yesterday. Patient has metabolic acidosis which is fairly stable for the last 4 days. Her lactic acid is also been elevated from 3.7 to now at 4.4. She had hypoalbuminemia with initial albumin of 1.8 on admission and currently 3.2 after given IV albumin. Her urine output is very minimal but patient has not had a Delvalle catheter so for the last 24 hours it was noted to be 350 mL. I had the nurse inserted a Delvalle catheter and immediately she had 200 mL of urine. Her blood pressure has been on the low side but on March 19 it is gone down to as low as 82/51 until 100/54. Today her blood pressure is elevated better about 120s over 60s. Patient's initial urinalysis is pretty bland without any protein or blood. She had an abdominal ultrasound which showed no hydronephrosis on the right kidney. She has a chest x-ray done today which shows interstitial pulmonary opacity possibly some edema. Patient has been accepted at [facility] and is just awaiting for bed. Past Medical History Cardiac Medical History: Reports: Hyperlipidemia GI Medical History: Reports: Cirrhosis, Gastroesophageal Reflux Disease Musculoskeltal Medical History: Reports: Arthritis - RA, OA Hematology Medical History: Reports Anemia Past Surgical History Past Surgical History: Reports: Cholecystectomy - stents in bile ducts, Hysterectomy Social History Information Source: [facility] Records Lives with: Family Smoking Status: Never Smoker Frequency of Alcohol Use: None Drugs: None Family History Family History: Hypertension Family History: Reviewed only from records. Parental Family History Reviewed: Yes Children Family History Reviewed: Yes Sibling(s) Family History Reviewed.: Yes Medication/Allergy Home Medications: Acetaminophen [Tylenol 325 mg Tablet] 650 mg PO DAILYP PRN 03/17/19 Albuterol Sulfate [Ventolin 0.042% Neb 1.25 mg/3 mL Ampul] 3 ml NEB RTQ4HP PRN 03/17/19 Benzonatate [Tessalon Perle 100 mg Capsule] 100 mg PO TIDP PRN 03/17/19 Cyclobenzaprine HCl [Flexeril 5 mg Tablet] 5 mg PO QHS 03/17/19 Montelukast Sodium [Singulair 10 mg Tablet] 10 mg PO QPM 03/17/19 Nystatin [Mycostatin 500,000 Unit/5 ml Susp Udcup] 5 ml BUCCAL QID 03/17/19 Omeprazole 20 mg PO QAM 03/17/19 Ursodiol [Sherri] 250 mg PO TID 03/17/19 Allergies/Adverse Reactions: propoxyphene napsylate [From Darvocet-N 100] Allergy (Intermediate, Verified 11/29/18 18:47) metronidazole [From Flagyl] Allergy (Mild, Verified 11/29/18 18:47) nausea and headache Review of Systems ROS unobtainable: Due to mental status Physical Exam Vital Signs: Temp Pulse Resp BP Pulse Ox 98.4 F 107 H 17 124/64 98 03/20/19 12:29 03/20/19 12:29 03/20/19 12:29 03/20/19 12:29 03/20/19 12:29 Intake & Output 03/19/19 03/20/19 03/21/19 06:59 06:59 06:59 Intake Total 1854 3710 Output Total 250 350 Balance 1604 3360 Weight 91.9 kg 90.7 kg Exam: General appearance: No acute distress, very lethargic and barely arousable opening her eyes for a few seconds and closing it back and not verbalizing anything at all Head exam: PRESENT: atraumatic, normocephalic Eye exam: PRESENT: Conjunctiva pale, EOMI, PERRLA. ABSENT: conjunctival injection, scleral icterus Mouth exam: PRESENT: moist, neck supple, tongue midline Neck exam: PRESENT: full ROM. ABSENT: carotid bruit, JVD, lymphadenopathy, thyromegaly Respiratory exam: PRESENT: Diminished to auscultation bilaterally. ABSENT: rales, rhonchi, stridor, wheezes Cardiovascular exam: PRESENT: RRR, +S1, +S2. ABSENT: systolic murmur Pulses: PRESENT: normal radial pulses, normal dorsalis pedis pulses GI/Abdominal exam: PRESENT: normal bowel sounds, soft. Mildly distended and not much fluid wave ABSENT: guarding, mass, tenderness Rectal exam: Deferred Extremities exam: PRESENT: full ROM. Grade 1 bilateral lower extremity pitting edema ABSENT: calf tenderness Musculoskeletal: PRESENT: full ROM. ABSENT: deformity Neurological exam: PRESENT: Lethargic and nonverbal Psychiatric exam: PRESENT: Difficult to assess with her mental status currently Skin exam: PRESENT: intact, dry, warm. ABSENT: rash Results Laboratory Results: 03/20/19 08:49 03/20/19 04:54 03/18/19 03/19/19 03/20/19 10:45 19:30 04:54 WBC Cancelled RBC Cancelled Hgb Cancelled Hct Cancelled MCV Cancelled MCH Cancelled MCHC Cancelled RDW Cancelled Plt Count Cancelled Seg Neutrophils % Cancelled Sodium Potassium Chloride Carbon Dioxide Anion Gap BUN Creatinine Est GFR ( Amer) Glucose Lactic Acid 2.6 H Calcium Total Bilirubin AST Alkaline Phosphatase Total Protein Albumin Fluid Glucose 60 Fluid LDH 64 03/20/19 03/20/19 03/20/19 04:54 08:49 12:57 WBC 9.0 RBC 3.08 L Hgb 8.7 L Hct 25.4 L MCV 83 MCH 28.1 MCHC 34.1 RDW 19.5 H Plt Count 75 L Seg Neutrophils % Not Reportable Sodium 142.5 Potassium 4.7 Chloride 108 H Carbon Dioxide 17 L Anion Gap 18 BUN 15 Creatinine 3.41 H Est GFR ( Amer) 17 L Glucose 32 L* Lactic Acid 4.4 H Calcium 8.9 Total Bilirubin 9.8 H AST 64 H Alkaline Phosphatase 144 H Total Protein 8.7 H Albumin 3.2 L Fluid Glucose Fluid LDH 03/17/19 03/17/19 00:05 02:10 Troponin I Cancelled < 0.012 Impressions: Abdomen/Pelvis CT 03/17/19 00:01 IMPRESSION: 1. Moderate to large amount of ascites throughout the abdomen and pelvis with some peritoneal thickening and enhancement in the pelvis raising question of peritonitis, consider correlation with paracentesis. 2. Partially imaged likely subcarinal adenopathy with pericardial and peridiaphragmatic adenopathy with abnormal appearance of the liver as above concerning for malignancy. If not previously performed consider liver protocol MRI with and without contrast. 3. Splenomegaly. 4. Cholelithiasis. Paracentesis Ultrasound 03/18/19 00:00 IMPRESSION: Successful ultrasound-guided diagnostic paracentesis. Chest X-Ray 03/20/19 06:00 IMPRESSION: Unchanged minimal diffuse interstitial pulmonary opacity which may reflect minimal edema. No focal airspace opacity. Cardiomegaly. Abdomen Ultrasound 03/20/19 09:26 IMPRESSION: Limited ultrasound of the abdomen. The liver has a nodular contour and heterogeneous echotexture. There is ascites. There is a 1.6 mm calculus within the gallbladder lumen. The gallbladder wall measures 2 mm in thickness, which is at the upper limits of normal. The sonographic Perera sign is negative. Assessment & Plan - Diagnosis (1) Acute kidney injury (PAIGE) with acute tubular necrosis (ATN) Is this a current diagnosis for this admission?: Yes Plan: Currently nonoliguric. There is a rapid decline of her kidney function for the last 72 hours which is most likely secondary to vancomycin toxicity with concomitant hypotension yesterday. Agree with discontinuation of vancomycin yesterday. Avoid any other nephrotoxic medications. Patient does not require any renal replacement therapy currently and has no indications. Monitor kidney function and electrolytes moving forward as her kidney function might get worse before it gets better. We will check urine sodium, creatinine and eosinophils. As the patient has no vascular access I would recommend central line placement and would avoid any PICC line in view of her kidney function. (2) Sepsis Qualifiers: Sepsis type: sepsis due to unspecified organism Sepsis acute organ dysfunction status: with acute organ dysfunction Hepatic coma status: without hepatic coma Is this a current diagnosis for this admission?: Yes Plan: Etiology uncertain. Currently on IV Zosyn. I will decrease the dose to 2.25 mg IV every 8 hours in view of the patient's kidney function. (3) Hypoglycemia Is this a current diagnosis for this admission?: Yes (4) Metabolic acidosis Is this a current diagnosis for this admission?: Yes Plan: Due to PAIGE and presumably sepsis. (5) Hepatic encephalopathy Is this a current diagnosis for this admission?: Yes (6) Hypoalbuminemia Is this a current diagnosis for this admission?: Yes Plan: IV albumin being given as needed. (7) Ascites Is this a current diagnosis for this admission?: Yes Plan: Status post paracentesis, 911 obtaining 1800 mL of peritoneal fluid. (8) Primary sclerosing cholangitis Is this a current diagnosis for this admission?: Yes (9) Anemia Qualifiers: Is this a current diagnosis for this admission?: Yes Plan: This is due to current chronic illness. (10) Thrombocytopenia Is this a current diagnosis for this admission?: Yes - Notes Notes: Thank you very much for this consultation. I will follow the patient with you. Discussed with Dr. Barton. - Time Time Spent: Greater than 70 Minutes
[2019-03-20] MEDS ORDERED: LORAZEPAM INJ 2 MG/1 ML VIAL IM PRN (16:35)
[2019-03-20] MEDS: DEXTROSE 5%-NORMAL SALINE 1,000 ML IV PRN ×2 (17:30→23:59)
--- NOTE | 2019-03-20 17:41 | RADIOLOGY REPORT (SQ) ---
EXAM DESCRIPTION: CHEST SINGLE VIEW COMPLETED DATE/TIME: 03/20/2019 5:31 pm REASON FOR STUDY: central line placement COMPARISON: 03/20/2019 EXAM PARAMETERS: NUMBER OF VIEWS: One view. TECHNIQUE: Single frontal radiographic view of the chest acquired. RADIATION DOSE: NA LIMITATIONS: None. FINDINGS: LUNGS AND PLEURA: No opacities, masses or pneumothorax. No pleural effusion. MEDIASTINUM AND HILAR STRUCTURES: No masses. Contour normal. HEART AND VASCULAR STRUCTURES: Heart size is borderline. No pulmonary edema. BONES: No acute findings. HARDWARE: Right internal jugular catheter has its tip in the superior vena cava. OTHER: No other significant finding. IMPRESSION: Right internal jugular catheter placement. Borderline heart size without kendra pulmonar y edema. No pneumothorax. TECHNICAL DOCUMENTATION: JOB ID: [id number]- All Rights Reserved Reading location - IP/workstation name: [email or web address]
--- NOTE | 2019-03-20 17:49 | CRITICAL CARE ADMISSION REPORT ---
[facility] Date:: 03/20/19 Time:: 17:15 Reason for ICU Reason:: Patient has developed worsening acute renal failure, worsening liver fn., hypoglycemia and encephalopathy - Diagnosis/Plan (2) Sepsis Qualifiers: Sepsis type: sepsis due to unspecified organism Sepsis acute organ dysfunction status: with acute organ dysfunction Hepatic coma status: without hepatic coma (3) Anemia Qualifiers: Past Medical History Cardiac Medical History: Reports: Hyperlipidema Denies: Myocardial Infarction, Hypertension Pulmonary Medical History: Reports: None Denies: Asthma - MILD RESTRICTIVE LUNG DISEASE, Bronchitis, Chronic Obstructive Pulmonary Disease (COPD), Pneumonia EENT Medical History: Reports: None Neurological Medical History: Reports: None Denies: Seizures Endocrine Medical History: Reports: None Renal/ Medical History: Reports: None Malignancy Medical History: Reports: None GI Medical History: Reports: Cirrhosis, Gastroesophageal Reflux Disease, Other - Primary sclerosing cholangitis Musculoskeltal Medical History: Reports: Arthritis - RA, OA Skin Medical History: Reports: None Psychiatric Medical History: Reports: None Hematology: Reports: Anemia Infectious Medical History: Reports: None Past Surgical History Past Surgical History: Reports: Cholecystectomy - stents in bile ducts, Hysterectomy Social/Family History - Social History Lives with: Family Smoking Status: Never Smoker Frequency of Alcohol Use: None Drugs: None - Medication/Allergies Home Medications: Acetaminophen [Tylenol 325 mg Tablet] 650 mg PO DAILYP PRN 03/17/19 Albuterol Sulfate [Ventolin 0.042% Neb 1.25 mg/3 mL Ampul] 3 ml NEB RTQ4HP PRN 03/17/19 Benzonatate [Tessalon Perle 100 mg Capsule] 100 mg PO TIDP PRN 03/17/19 Cyclobenzaprine HCl [Flexeril 5 mg Tablet] 5 mg PO QHS 03/17/19 Montelukast Sodium [Singulair 10 mg Tablet] 10 mg PO QPM 03/17/19 Nystatin [Mycostatin 500,000 Unit/5 ml Susp Udcup] 5 ml BUCCAL QID 03/17/19 Omeprazole 20 mg PO QAM 03/17/19 Ursodiol [Sherri] 250 mg PO TID 03/17/19 Allergies/Adverse Reactions: propoxyphene napsylate [From Darvocet-N 100] Allergy (Intermediate, Verified 11/29/18 18:47) metronidazole [From Flagyl] Allergy (Mild, Verified 11/29/18 18:47) nausea and headache Review of Systems ROS unobtainable: Due to mental status Physical Exam Vital Signs: Temp Pulse Resp BP Pulse Ox 98.4 F 107 H 17 124/64 98 03/20/19 12:29 03/20/19 12:29 03/20/19 12:29 03/20/19 12:29 03/20/19 12:29 Intake & Output 03/19/19 03/20/19 03/21/19 06:59 06:59 06:59 Intake Total 1854 3710 Output Total 250 350 Balance 1604 3360 Weight 91.9 kg 90.7 kg Weight/Height Weight 90.7 kg Height 5 ft 5 in General appearance: PRESENT: cooperative Exam: Patient is letharic. Will cooperate and open her eyes when called but remains non-verbal Head exam: PRESENT: atraumatic, normocephalic Eye exam: PRESENT: conjunctiva pink Mouth exam: PRESENT: dry mucosa, moist Neck exam: ABSENT: meningismus, thyromegaly Respiratory exam: PRESENT: symmetrical, unlabored. ABSENT: accessory muscle use Cardiovascular exam: PRESENT: RRR, +S1, +S2 Pulses: PRESENT: +2 pedal pulses bilateral GI/Abdominal exam: PRESENT: ascites, normal bowel sounds. ABSENT: firm, guarding Rectal exam: PRESENT: deferred. ABSENT: black stool Gentrourinary exam: ABSENT: ecchymosis Extremities exam: ABSENT: joint swelling Neurological exam: PRESENT: other - The patient will open her eyes. Appears able to move all her extremities. Does not try to speak at this time. Lies in bed with eyes closed Laboratory/Radiographs Laboratory Results: 03/20/19 08:49 03/20/19 04:54 03/18/19 03/19/19 03/20/19 10:45 19:30 04:54 WBC Cancelled RBC Cancelled Hgb Cancelled Hct Cancelled MCV Cancelled MCH Cancelled MCHC Cancelled RDW Cancelled Plt Count Cancelled Seg Neutrophils % Cancelled Sodium Potassium Chloride Carbon Dioxide Anion Gap BUN Creatinine Est GFR ( Amer) Glucose Lactic Acid 2.6 H Calcium Total Bilirubin AST Alkaline Phosphatase Total Protein Albumin Fluid Glucose 60 Fluid LDH 64 03/20/19 03/20/19 03/20/19 04:54 08:49 12:57 WBC 9.0 RBC 3.08 L Hgb 8.7 L Hct 25.4 L MCV 83 MCH 28.1 MCHC 34.1 RDW 19.5 H Plt Count 75 L Seg Neutrophils % Not Reportable Sodium 142.5 Potassium 4.7 Chloride 108 H Carbon Dioxide 17 L Anion Gap 18 BUN 15 Creatinine 3.41 H Est GFR ( Amer) 17 L Glucose 32 L* Lactic Acid 4.4 H Calcium 8.9 Total Bilirubin 9.8 H AST 64 H Alkaline Phosphatase 144 H Total Protein 8.7 H Albumin 3.2 L Fluid Glucose Fluid LDH 03/17/19 03/17/19 00:05 02:10 Troponin I Cancelled < 0.012 Impressions: Abdomen/Pelvis CT 03/17/19 00:01 IMPRESSION: 1. Moderate to large amount of ascites throughout the abdomen and pelvis with some peritoneal thickening and enhancement in the pelvis raising question of peritonitis, consider correlation with paracentesis. 2. Partially imaged likely subcarinal adenopathy with pericardial and peridiaphragmatic adenopathy with abnormal appearance of the liver as above concerning for malignancy. If not previously performed consider liver protocol MRI with and without contrast. 3. Splenomegaly. 4. Cholelithiasis. Paracentesis Ultrasound 03/18/19 00:00 IMPRESSION: Successful ultrasound-guided diagnostic paracentesis. Abdomen Ultrasound 03/20/19 09:26 IMPRESSION: Limited ultrasound of the abdomen. The liver has a nodular contour and heterogeneous echotexture. There is ascites. There is a 1.6 mm calculus within the gallbladder lumen. The gallbladder wall measures 2 mm in thickness, which is at the upper limits of normal. The sonographic Perera sign is negative. Critical Time -: The care of a critically ill patient is dynamic. This note represents a static moment in the admission process. orders and treatments may be given simulataneously and urgentl, and time is not territory sales representative of the treatment process. This patient requires Critical Care secondary to life threating organ or limb dysfunction. Without the need for Critical Care services, the patient is at risk for increasid mortality and morbidity. Assessment & Plan - Diagnosis (1) Primary sclerosing cholangitis Is this a current diagnosis for this admission?: Yes (2) Sepsis Qualifiers: Sepsis type: sepsis due to unspecified organism Sepsis acute organ dysfunction status: with acute organ dysfunction Hepatic coma status: without hepatic coma Is this a current diagnosis for this admission?: Yes (3) Anemia Qualifiers: Is this a current diagnosis for this admission?: Yes (4) Thrombocytopenia Is this a current diagnosis for this admission?: Yes (5) Primary sclerosing cholangitis Plan: The patient has a long histoiry of sclerosing cholangiots. When she presented this time she had developed moderate to large ascites suggesting cirrhosis and portal HTN. Her underlying liver disase appaears to have worsened recently. The patient did have her belly tapped. and it appears there was no evidence of perititonitis. (6) Acute kidney injury (PAIGE) with acute tubular necrosis (ATN) Is this a current diagnosis for this admission?: Yes Plan: It appears to me that the patient likely devloped ATN on the basis of her intiall presenting hypotension and possible contrast induced nephropathy. In addition, the patient di get 2 doses of Vancomycin with a high trough level yesterday. this may have contributed to the acute renal failure. The patient just had a fioley placed and did have a few hundred ccs of urine. We will be aggressively hydrating her now to see if we can reverse the trend. Iv access was a problem so we placed a CVP line emergnetly when she arrived in the ICU (7) Hepatic encephalopathy Is this a current diagnosis for this admission?: Yes Plan: The patient developed worsening encephalopathy today. She opens eyes but is non-verbal. She has been afebbrile and BP has been in the normal range llately. Her neurologic exam appears to be non-focal at prresent. We have sent off repeat blood work to include an ammonia level. (8) Hypoglycemia Is this a current diagnosis for this admission?: Yes Plan: The patient is not a diabetic She developed hypoglycemia early this AM Unclear iof this is do to worsening liver failure. Her intake ahs been poor in the past 1-2 days as well. I am administering dextrose-NaCL to her presently. - Time Time Spent: Greater than 70 Minutes Medications reviewed and adjusted accordingly: Yes Anticipated discharge: [facility] Within: within 24 hours - Plan Summary Plan Summary: Dr. Barton who was seeing the patient on themedical floor called me abut 1 hour ago describing what had transpired today. He has arranged and thepatient has been accepted to [facility]. No bed is currently available. IN the interim thepatient has been moved back to the ICU. If her mentaion worsens she may require intubation and mechanical ventialtion
[2019-03-20 17:56] LABS: ABSOLUTE BASOPHILS # (AUTO) 0.1 10^3/uL (0.0-0.2); ABSOLUTE EOSINOPHILS # (AUTO) 0.2 10^3/uL (0.0-0.6); ABSOLUTE LYMPHOCYTES (AUTO) 1.2 10^3/uL (0.5-4.7); ABSOLUTE MONOCYTES (AUTO) 1.4 10^3/uL (0.1-1.4); ABSOLUTE NEUT (AUTO) 5.3 10^3/uL (1.7-8.2); BASOPHILS % (AUTO) 0.6 % (0-2); EOSINOPHILS % (AUTO) 2.9 % (0-6); HEMATOCRIT 22.8 % (36.0-47.0); INTERNATIONAL RATION (INR) 1.94; MEAN CORPUSCULAR HEMOGLOBIN 28.3 pg (27.0-33.4); MEAN CORPUSCULAR HGB CONC 34.8 g/dL (32.0-36.0); MEAN CORPUSCULAR VOLUME 81 fl (80-97); MONOCYTES % (AUTO) 16.6 % (3-13); PROTHROMBIN TIME 22.4 SEC (11.4-15.4); RED BLOOD COUNT 2.81 10^6/uL (3.72-5.28); RED CELL DISTRIBUTION WIDTH 19.4 % (11.5-14.0); SEGMENTED NEUTROPHILS % (AUTO) 64.9 % (42-78); TOTAL CELLS COUNTED % (AUTO) 100 %; WHITE BLOOD COUNT 8.2 10^3/uL (4.0-10.5)
[2019-03-20 17:57] LABS: PARTIAL THROMBOPLASTIN TIME 45.4 SEC (23.5-35.8)
[2019-03-20] MEDS ORDERED: DEXTROSE 40% GEL 15 GM TUBE PO PRN ×2 (18:03)
[2019-03-20] MEDS ORDERED: DEXTROSE 50%-WATER 25 GM/50 ML DISP.SYRIN IV PRN ×2 (18:03)
[2019-03-20] MEDS ORDERED: GLUCAGON,HUMAN RECOMB 1 MG INJ SUBCUT PRN (18:03)
[2019-03-20] MEDS ORDERED: NALOXONE HCL INJ/PF 0.4 MG/1 ML SDV ONE (18:09)
[2019-03-20 18:10] LABS: ALBUMIN 2.7 g/dL (3.5-5.0); ALKALINE PHOSPHATASE 143 U/L (38-126); ANION GAP 13 (5-19); ASPARTATE AMINO TRANSFERASE 55 U/L (14-36); BILIRUBIN,DIRECT 7.6 mg/dL (0.0-0.4); BLOOD UREA NITROGEN 15 mg/dL (7-20); CALCIUM 8.8 mg/dL (8.4-10.2); CARBON DIOXIDE 17 mmol/L (22-30); CHLORIDE 110 mmol/L (98-107); GLUCOSE 87 mg/dL (75-110); POTASSIUM 3.8 mmol/L (3.6-5.0); TOTAL PROTEIN 7.7 g/dL (6.3-8.2)
[2019-03-20 18:18] LABS: HEMOGLOBIN 7.9 g/dL (12.0-15.5)
[2019-03-20 18:19] LABS: PLATELET COUNT 95 10^3/uL (150-450)
[2019-03-20 18:25] LABS: URINE CREATININE 116.6 mg/dL (15-278)
[2019-03-20 18:29] LABS: FIBRINOGEN 100 mg/dL (209-497)
[2019-03-20] MEDS ORDERED: LACTULOSE SYRUP 20 GM/30 ML UDCUP NG SCH ×2 (18:30→22:00)
[2019-03-20] MEDS ORDERED: PHARMACY COMMUNICATION ORDER MC NR (18:30)
[2019-03-20] MEDS ORDERED: PHYTONADIONE INJ 1 MG/0.5 ML AMPULE INJ ONE (18:30)
[2019-03-20] MEDS ORDERED: NORMAL SALINE 250 ML IV PRN ×4 (18:32→19:51)
[2019-03-20 18:38] VITALS: BP 125/69
[2019-03-20] MEDS ORDERED: PHYTONADIONE INJ 10 MG/1 ML AMPULE ONE (18:50)
[2019-03-20 19:06] LABS: ARTERIAL BLOOD BASE EXCESS -4.9 mmol/L; ARTERIAL BLOOD H2CO3 0.83 mmol/L (1.05-1.35); ARTERIAL BLOOD HCO3 18.5 mmol/L (20-24); ARTERIAL BLOOD O2 SATURATION 97.5 % (94-98); ARTERIAL BLOOD PCO2 27.6 mmHg (35-45); ARTERIAL BLOOD PH 7.45 (7.35-7.45); ARTERIAL BLOOD PO2 92.1 mmHg (80-100); ARTERIAL BLOOD TOTAL CO2 19.4 mmol/L (21-25)
[2019-03-20 19:11] LABS: ARTERIAL BLOOD FIO2 ROOM AIR
[2019-03-20] MEDS ORDERED: PROPOFOL 1,000 MG/100 ML INFUS..BTL IV ONE (19:20)
[2019-03-20 19:29] LABS: EOSINOPHIL SMEAR NO EOSINOPHILS SEEN; SPECIMEN TYPE URINE
[2019-03-20] MEDS ORDERED: PHENYLEPHRINE HCL INJ/PF 10 MG/1 ML SDV ONE (20:10)
[2019-03-20] MEDS ORDERED: DESMOPRESSIN ACETATE IV ONE (20:30)
[2019-03-20] MEDS ORDERED: NORMAL SALINE IV ONE (20:30)
[2019-03-20] MEDS ORDERED: DEXTROSE 5%-WATER 250 ML with PHENYLEPHRINE HCL 40 MG IV PRN ×2 (20:36)
[2019-03-20] MEDS ORDERED: MIDAZOLAM HCL 50 MG/100 ML RTUINJ ONE (20:45)
[2019-03-20 20:47] LABS: HEMATOCRIT 24.9 % (36.0-47.0); HEMOGLOBIN 8.6 g/dL (12.0-15.5); MEAN CORPUSCULAR HEMOGLOBIN 28.6 pg (27.0-33.4); MEAN CORPUSCULAR HGB CONC 34.5 g/dL (32.0-36.0); MEAN CORPUSCULAR VOLUME 83 fl (80-97); PLATELET COUNT 129 10^3/uL (150-450); RED CELL DISTRIBUTION WIDTH 18.9 % (11.5-14.0); WHITE BLOOD COUNT 14.6 10^3/uL (4.0-10.5)
[2019-03-20] MEDS ORDERED: NORMAL SALINE 500 ML with OCTREOTIDE ACETATE 500 MCG IV PRN ×2 (20:52)
[2019-03-20] MEDS ORDERED: MIDAZOLAM HCL 50 MG/100 ML RTUINJ IV PRN (21:00)
[2019-03-20 21:25] LABS: C DIFFICILE GDH NEGATIVE (NEGATIVE)
--- NOTE | 2019-03-20 21:54 | PDOC TRANSFER SUMMARY ---
General Admission Date/PCP: 03/17/19 09:16 OBI NAVARRO PA-C Admission Date: 03/17/19 Transfer Date: 03/20/19 Accepting Facility: [facility] Accepting Physician: Felicity Resuscitation Status: Full Code - Transfer Diagnosis (1) Primary sclerosing cholangitis Is this a current diagnosis for this admission?: Yes (2) Sepsis Is this a current diagnosis for this admission?: Yes (3) Anemia Is this a current diagnosis for this admission?: Yes (4) Thrombocytopenia Is this a current diagnosis for this admission?: Yes (6) Acute kidney injury (PAIGE) with acute tubular necrosis (ATN) Is this a current diagnosis for this admission?: Yes (7) Hepatic encephalopathy Is this a current diagnosis for this admission?: Yes (8) Hypoglycemia Is this a current diagnosis for this admission?: Yes (9) Coagulopathy Is this a current diagnosis for this admission?: Yes - Transfer Medications Home Medications: Acetaminophen [Tylenol 325 mg Tablet] 650 mg PO DAILYP PRN 03/17/19 Albuterol Sulfate [Ventolin 0.042% Neb 1.25 mg/3 mL Ampul] 3 ml NEB RTQ4HP PRN 03/17/19 Benzonatate [Tessalon Perle 100 mg Capsule] 100 mg PO TIDP PRN 03/17/19 Cyclobenzaprine HCl [Flexeril 5 mg Tablet] 5 mg PO QHS 03/17/19 Montelukast Sodium [Singulair 10 mg Tablet] 10 mg PO QPM 03/17/19 Nystatin [Mycostatin 500,000 Unit/5 ml Susp Udcup] 5 ml BUCCAL QID 03/17/19 Omeprazole 20 mg PO QAM 03/17/19 Ursodiol [Sherri] 250 mg PO TID 03/17/19 Transfer Medications: Current Medications Albuterol (Ventolin 0.042% Neb 1.25 Mg/3 Ml Ampul) 1.25 mg NEB RTQ4HP PRN PRN Reason: SHORTNESS OF BREATH Stop: 04/18/19 17:03 Dextrose (Dextrose Inj 50% Syringe (25 Gm/50 Ml)) 12.5 gm IV PRN PRN; Protocol PRN Reason: FOR BG 50-69 IN ALERT PATIENT Stop: 04/19/19 18:02 Dextrose (Dextrose Inj 50% Syringe (25 Gm/50 Ml)) 25 gm IV PRN PRN; Protocol PRN Reason: See Label Comments Stop: 04/19/19 18:02 Glucagon (Glucagen Inj 1 Mg Vial) 1 mg SUBCUT PRN PRN; Protocol PRN Reason: Evaluate for BG < 70 Stop: 04/19/19 18:02 Glucose (Glutose 40% Gel 15 Gm Tube) 15 gm PO PRN PRN; Protocol PRN Reason: For BG 50-69 in Alert Patient Stop: 04/19/19 18:02 Glucose (Glutose 40% Gel 15 Gm Tube) 30 gm PO PRN PRN; Protocol PRN Reason: FOR BG < 50 IN ALERT PATIENT Stop: 04/19/19 18:02 Dextrose/Sodium Chloride (D5ns 1000 Ml Iv Soln) 1,000 mls @ 50 mls/hr IV CONTINUOUS PRN PRN Reason: THIS MED IS NOT "PRN" Stop: 04/19/19 12:46 Last Admin: 03/20/19 17:30 Dose: 150 mls/hr Documented by: Albumin Human (Albuminar-25 Rtu Inj 12.5 Gm/50 Ml Premix) 50 gm in 200 mls @ 50 mls/hr IV Q12H LAURY Stop: 03/22/19 05:59 Piperacillin Sod/Tazobactam (Sod 2.25 gm/ Sodium Chloride) 50 mls @ 100 mls/hr IV Q8 LAURY Stop: 03/27/19 21:59 Sodium Chloride (Nacl 0.9% 250 Ml Iv Soln) 250 mls @ 30 mls/hr IV .DURING TRA NSFUSION PRN PRN Reason: THIS MED IS NOT "PRN" Stop: 03/21/19 18:31 Sodium Chloride (Nacl 0.9% 250 Ml Iv Soln) 250 mls @ 0 mls/hr IV CONTINUOUS PRN PRN Reason: AFTER EACH UNIT Stop: 03/21/19 18:31 Sodium Chloride (Nacl 0.9% 250 Ml Iv Soln) 250 mls @ 30 mls/hr IV .DURING TRANSFUSION PRN PRN Reason: THIS MED IS NOT "PRN" Stop: 03/21/19 19:50 Sodium Chloride (Nacl 0.9% 250 Ml Iv Soln) 250 mls @ 0 mls/hr IV CONTINUOUS PRN PRN Reason: AFTER EACH UNIT Stop: 03/21/19 19:50 Propofol (Diprivan Rtu 1000 Mg/100 Ml Inf.Bottle) 1,000 mg in 100 mls @ 2.721 mls/hr IV CONTINUOUS PRN; Protocol PRN Reason: THIS MED IS NOT "PRN" Stop: 04/19/19 20:27 Hard Fat/Phenylephrine 40 mg/ (Dextrose) 250 mls @ 0 mls/hr IV CONTINUOUS PRN; Protocol PRN Reason: THIS MED IS NOT "PRN" Stop: 04/19/19 20:35 Last Admin: 03/20/19 20:30 Dose: 100 mcg/min, 37.5 mls/hr Documented by: Midazolam HCl (Versed Rtu 50 Mg/100 Ml Premix Bag) 50 mg in 100 mls @ 0 mls/hr IV CONTINUOUS PRN; Protocol PRN Reason: THIS MED IS NOT "PRN" Stop: 03/27/19 20:59 Last Admin: 03/20/19 20:45 Dose: 10 mg/hr, 20 mls/hr Documented by: Octreotide Acetate 500 mcg/ (Sodium Chloride) 500 mls @ 0 mls/hr IV CONTINUOUS PRN PRN Reason: THIS MED IS NOT "PRN" Stop: 04/19/19 20:51 Lactulose (Cephulac Syrup 20 Gm/30 Ml Udcup) 20 gm NG Q8HP LAURY Stop: 03/31/19 18:31 Ondansetron HCl (Zofran Inj/Pf 4 Mg/2 Ml Sdv) 4 mg IV Q6HP PRN PRN Reason: FOR NAUSEA/VOMITING Stop: 04/19/19 11:46 Pharmacy Profile Note (Medication Communication Order) 1 each .NOTICE NR Stop: 04/19/19 18:29 Rocuronium [place] (Zemuron Inj 50 Mg/5 Ml Vial) 100 mg IV NOW ONE Stop: 03/20/19 22:16 Last Admin: 03/20/19 21:25 Dose: 100 mg Documented by: Sodium Chloride (Saline Flush 2.5 Ml Monoject Prefil Syrin) 2.5 ml IV Q8 LAURY Stop: 04/16/19 13:59 Last Admin: 03/20/19 05:52 Dose: Not Given Documented by: - Allergies Allergies/Adverse Reactions: propoxyphene napsylate [From DarGrowish-N 100] Allergy (Intermediate, Verified 11/29/18 18:47) metronidazole [From Flagyl] Allergy (Mild, Verified 11/29/18 18:47) nausea and headache Hospital Course Hospital Course: At about 7PM tonight the patient developed a massive UGI bleed. I came back to the unit where I intubated the patient. The patient was putting out bright red blood. A massive transfusionprotocol was initiated at this time. She appears to have lost n>1200cc blood. her last Hb after 2 units was about 8.6 ( was 7.9 earlier today). Since than the patient has received 2 additional units o f blood. The patient has also received 2 units of FFP and 5 units of cryoprecipitate The patient is on neosynephrine at about 100mg/min. She is to be placed on a Sandostatin drip. Attmepts to place a Blakemorre tube on multiple attempts was not successful The patient had a transient BP of a s lpow as 75 systolic but moire recentl it has been about 120 systolic with heart rate about 120-130 in a sinus tach. The patient has also received 30 units of IV DDAVP. her INR earlier was about 2, her fibrinogen about 100, polatrelets 95k. her last creatoineine was about 3. She has an 02 sat of 97-100% on 50% FI02. The patient is beiing transferred becuse she ahs a known history of varices and will need emergent endoscopy. Otherwise, general surgery can be called to assist as well. Physical Exam Vital Signs: Temp Pulse Resp BP Pulse Ox 98.8 F 118 H 18 125/69 100 03/20/19 18:00 03/20/19 18:00 03/20/19 18:00 03/20/19 18:00 03/20/19 19:37 Intake & Output 03/19/19 03/20/19 03/21/19 06:59 06:59 06:59 Intake Total 1854 3710 63.5 Output Total 250 350 300 Balance 1604 3360 -236.5 Weight 91.9 kg 90.7 kg Results Laboratory Results: 03/20/19 20:38 03/20/19 17:22 03/18/19 03/20/19 03/20/19 10:45 04:54 04:54 WBC Cancelled RBC Cancelled Hgb Cancelled Hct Cancelled MCV Cancelled MCH Cancelled MCHC Cancelled RDW Cancelled Plt Count Cancelled Seg Neutrophils % Cancelled Carbonic Acid HCO3/H2CO3 Ratio ABG pH ABG pCO2 ABG pO2 ABG HCO3 ABG O2 Saturation ABG Base Excess FiO2 Sodium 142.5 Potassium 4.7 Chloride 108 H Carbon Dioxide 17 L Anion Gap 18 BUN 15 Creatinine 3.41 H Est GFR ( Amer) 17 L Glucose 32 L* Lactic Acid Calcium 8.9 Magnesium Total Bilirubin 9.8 H AST 64 H Alkaline Phosphatase 144 H Ammonia Total Protein 8.7 H Albumin 3.2 L Fluid Glucose 60 Fluid LDH 64 Blood Type Antibody Screen 03/20/19 03/20/19 03/20/19 08:49 12:57 17:22 WBC 9.0 RBC 3.08 L Hgb 8.7 L Hct 25.4 L MCV 83 MCH 28.1 MCHC 34.1 RDW 19.5 H Plt Count 75 L Seg Neutrophils % Not Reportable Carbonic Acid HCO3/H2CO3 Ratio ABG pH ABG pCO2 ABG pO2 ABG HCO3 ABG O2 Saturation ABG Base Excess FiO2 Sodium Potassium Chloride Carbon Dioxide Anion Gap BUN Creatinine Est GFR ( Amer) Glucose Lactic Acid 4.4 H 2.2 H Calcium Magnesium Total Bilirubin AST Alkaline Phosphatase Ammonia Total Protein Albumin Fluid Glucose Fluid LDH Blood Type Antibody Screen 03/20/19 03/20/19 03/20/19 17:22 17:22 17:22 WBC 8.2 RBC 2.81 L Hgb 7.9 L Hct 22.8 L MCV 81 MCH 28.3 MCHC 34.8 RDW 19.4 H Plt Count 95 L Seg Neutrophils % 64.9 Carbonic Acid HCO3/H2CO3 Ratio ABG pH ABG pCO2 ABG pO2 ABG HCO3 ABG O2 Saturation ABG Base Excess FiO2 Sodium 139.9 Potassium 3.8 Chloride 110 H Carbon Dioxide 17 L Anion Gap 13 BUN 15 Creatinine 3.16 H Est GFR ( Amer) 18 L Glucose 87 Lactic Acid Calcium 8.8 Magnesium 1.6 Total Bilirubin 9.0 H AST 55 H Alkaline Phosphatase 143 H Ammonia 102.2 H Total Protein 7.7 Albumin 2.7 L Fluid Glucose Fluid LDH Blood Type Antibody Screen 03/20/19 03/20/19 03/20/19 18:45 19:46 20:38 WBC 14.6 H RBC 3.00 L Hgb 8.6 L Hct 24.9 L MCV 83 MCH 28.6 MCHC 34.5 RDW 18.9 H Plt Count 129 L Seg Neutrophils % Carbonic Acid 0.83 L HCO3/H2CO3 Ratio 22:1 ABG pH 7.45 ABG pCO2 27.6 L ABG pO2 92.1 ABG HCO3 18.5 L ABG O2 Saturation 97.5 ABG Base Excess -4.9 FiO2 ROOM AIR Sodium Potassium Chloride Carbon Dioxide Anion Gap BUN Creatinine Est GFR ( Amer) Glucose Lactic Acid Calcium Magnesium Total Bilirubin AST Alkaline Phosphatase Ammonia Total Protein Albumin Fluid Glucose Fluid LDH Blood Type AB POSITIVE Antibody Screen NEGATIVE 03/17/19 03/17/19 03/20/19 00:05 02:10 17:22 Creatine Kinase < 20 L Troponin I Cancelled < 0.012 Impressions: Abdomen/Pelvis CT 03/17/19 00:01 IMPRESSION: 1. Moderate to large amount of ascites throughout the abdomen and pelvis with some peritoneal thickening and enhancement in the pelvis raising question of peritonitis, consider correlation with paracentesis. 2. Partially imaged likely subcarinal adenopathy with pericardial and peridiaphragmatic adenopathy with abnormal appearance of the liver as above concerning for malignancy. If not previously performed consider liver protocol MRI with and without contrast. 3. Splenomegaly. 4. Cholelithiasis. Paracentesis Ultrasound 03/18/19 00:00 IMPRESSION: Successful ultrasound-guided diagnostic paracentesis. Abdomen Ultrasound 03/20/19 09:26 IMPRESSION: Limited ultrasound of the abdomen. The liver has a nodular contour and heterogeneous echotexture. There is ascites. There is a 1.6 mm calculus within the gallbladder lumen. The gallbladder wall measures 2 mm in thickness, which is at the upper limits of normal. The sonographic Perera sign is negative. Chest X-Ray 03/20/19 17:16 IMPRESSION: Right internal jugular catheter placement. Borderline heart size without kendra pulmonary edema. No pneumothorax.
[2019-03-20] MEDS ORDERED: PIPERACILLIN SODIUM/TAZOBACTAM 2.25 GM in NORMAL SALINE 50 ML IV SCH (22:00)
[2019-03-20 22:18] LABS: ARTERIAL BLOOD BASE EXCESS -12.2 mmol/L; ARTERIAL BLOOD H2CO3 1.22 mmol/L (1.05-1.35); ARTERIAL BLOOD HCO3 15.2 mmol/L (20-24); ARTERIAL BLOOD O2 SATURATION 90.5 % (94-98); ARTERIAL BLOOD PCO2 40.6 mmHg (35-45); ARTERIAL BLOOD PO2 71.2 mmHg (80-100); ARTERIAL BLOOD TOTAL CO2 16.5 mmol/L (21-25)
[2019-03-20 22:21] LABS: ARTERIAL BLOOD FIO2 50%
[2019-03-20 22:22] LABS: ARTERIAL BLOOD PH 7.19 (7.35-7.45)
[2019-03-20] MEDS: PROPOFOL 1,000 MG/100 ML INFUS..BTL IV PRN (22:35)
[2019-03-21] MEDS ORDERED: VASOPRESSIN INJ 20 UNIT/1 ML VIAL ONE (00:15)
[2019-03-21] MEDS: PROPOFOL 1,000 MG/100 ML INFUS..BTL IV PRN (00:20)
--- NOTE | 2019-04-21 15:13 | PDOC PROGRESS REPORT ---
Subjective Progress Note for:: 03/18/19 Subjective:: The patient has had improvement ion her bp even beofre arriving to the ICU. Her mouth is feeling better and she was able to eat after her paracentesis. About 1800ccc of straw colored fluid was removed this AM during her paracentesis and it was sent for analysis. Her abdomen is feeling quite a bit comfortable since than. The patient has decided not to pproceed forward with transdfer to [place] at this time. Reason For Visit: SEPSIS,PRIMARY SCLEROSING CHOLANGITIS,ASCITES Physical Exam Vital Signs: Temp Pulse Resp BP Pulse Ox 98.9 F 110 H 11 L 115/61 99 03/18/19 12:00 03/18/19 12:00 03/18/19 12:00 03/18/19 12:00 03/18/19 12:00 Intake & Output 03/17/19 03/18/19 03/19/19 06:59 06:59 06:59 Intake Total 3000 1550 350 Output Total 100 0 Balance 3000 1450 350 Weight 92.6 kg 87.5 kg General appearance: PRESENT: no acute distress Eye exam: PRESENT: conjunctiva pink Mouth exam: PRESENT: moist Throat exam: ABSENT: tonsillar exudate Respiratory exam: PRESENT: clear to auscultation radha, unlabored Cardiovascular exam: PRESENT: RRR Vascular exam: PRESENT: normal capillary refill GI/Abdominal exam: PRESENT: ascites, normal bowel sounds, soft Additonal comments: Abomen is much softer and elss distended since the procedure Extremities exam: PRESENT: full ROM Musculoskeletal exam: PRESENT: full ROM Neurological exam: PRESENT: alert, oriented to person, oriented to place, oriented to time, oriented to situation Skin exam: ABSENT: jaundice, pallor Results Laboratory Results: 03/17/19 00:05 03/17/19 04:13 03/18/19 10:45 Total Protein Cancelled 03/17/19 03/17/19 00:05 02:10 Troponin I Cancelled < 0.012 Impressions: Abdomen/Pelvis CT 03/17/19 00:01 IMPRESSION: 1. Moderate to large amount of ascites throughout the abdomen and pelvis with some peritoneal thickening and enhancement in the pelvis raising question of peritonitis, consider correlation with paracentesis. 2. Partially imaged likely subcarinal adenopathy with pericardial and peridiaphragmatic adenopathy with abnormal appearance of the liver as above concerning for malignancy. If not previously performed consider liver protocol MRI with and without contrast. 3. Splenomegaly. 4. Cholelithiasis. Chest X-Ray 03/17/19 10:45 IMPRESSION: STABLE APPEARANCE OF THE CHEST. SUPPORT DEVICES UNCHANGED. Paracentesis Ultrasound 03/18/19 00:00 IMPRESSION: Successful ultrasound-guided diagnostic paracentesis. Assessment & Plan - Diagnosis (1) Abdominal pain Qualifiers: Abdominal location: lower abdomen, unspecified Qualified Code(s): R10.30 - Lower abdominal pain, unspecified Is this a current diagnosis for this admission?: Yes Plan: Th patient presented with abdominal pain to the ED. It is feeling better since her paracentesis. The patient was able to eat after the procedure (2) Primary sclerosing cholangitis Is this a current diagnosis for this admission?: Yes Plan: There is no special treatment plan for this disorder presently (3) Sepsis Qualifiers: Sepsis type: sepsis due to unspecified organism Sepsis acute organ dysfunction status: with acute organ dysfunction Hepatic coma status: without hepatic coma Is this a current diagnosis for this admission?: Yes Plan: The patient was started empirically on abx. The source of infx. is unclear. The patient has no resp. symtpoms. Blood culutrres remain negative UA was unremarkable. CXR was unremarkable. Her bili and alk phos are elevated but chroinically so.. (4) Anemia Qualifiers: Anemia type: bone marrow failure Is this a current diagnosis for this admission?: Yes (5) Thrombocytopenia Is this a current diagnosis for this admission?: Yes - Time Time Spent with patient: 25-34 minutes
--- NOTE | 2019-04-21 15:13 | PDOC PROGRESS REPORT ---
Subjective Progress Note for:: 03/19/19 Subjective:: The patient has had improvement ion her bp even beofre arriving to the ICU. Her mouth is feeling better and she was able to eat after her paracentesis. About 1800ccc of straw colored fluid was removed this AM during her paracentesis and it was sent for analysis. Her abdomen is feeling quite a bit comfortable since than. The patient has decided not to pproceed forward with transdfer to [place] at this time. 03/19 Patient overall feels better. No major complaints. The patient nixed the transfer to [facility] and wiould like to stay here. Her paracentesis appears negative for SBP based on the low WBC. Reason For Visit: SEPSIS,PRIMARY SCLEROSING CHOLANGITIS,ASCITES Physical Exam Vital Signs: Temp Pulse Resp BP Pulse Ox 98.8 F 94 15 111/65 100 03/19/19 07:21 03/19/19 07:21 03/19/19 08:02 03/19/19 08:02 03/19/19 08:02 Intake & Output 03/18/19 03/19/19 03/20/19 06:59 06:59 06:59 Intake Total 1550 1854 1100 Output Total 100 250 Balance 1450 1604 1100 Weight 87.5 kg 91.9 kg General appearance: PRESENT: no acute distress, cooperative, well-developed, well-nourished Eye exam: PRESENT: conjunctiva pink Mouth exam: PRESENT: moist GI/Abdominal exam: PRESENT: normal bowel sounds, soft. ABSENT: tenderness Rectal exam: PRESENT: deferred Extremities exam: PRESENT: full ROM Musculoskeletal exam: PRESENT: ambulatory Neurological exam: PRESENT: alert, altered, oriented to time Results Laboratory Results: 03/19/19 03:38 03/19/19 03:38 03/18/19 03/18/19 03/19/19 10:45 10:45 03:38 WBC 10.3 D RBC 3.06 L Hgb 8.8 L Hct 25.1 L MCV 82 MCH 28.6 MCHC 34.9 RDW 19.1 H Plt Count 117 L Seg Neutrophils % 64.1 Sodium Potassium Chloride Carbon Dioxide Anion Gap BUN Creatinine Est GFR ( Amer) Glucose Calcium Total Protein Cancelled Fluid Type PERITONEAL Fluid Source ASCITES Fluid Color YELLOW Fluid Appearance CLEAR Fluid Viscosity LIQUID Fluid WBC 289 Fluid RBC 543 03/19/19 03:38 WBC RBC Hgb Hct MCV MCH MCHC RDW Plt Count Seg Neutrophils % Sodium 138.9 Potassium 4.3 Chloride 109 H Carbon Dioxide 18 L Anion Gap 12 BUN 11 Creatinine 2.82 H Est GFR ( Amer) 21 L Glucose 72 L Calcium 8.8 Total Protein Fluid Type Fluid Source Fluid Color Fluid Appearance Fluid Viscosity Fluid WBC Fluid RBC 03/17/19 03/17/19 00:05 02:10 Troponin I Cancelled < 0.012 Impressions: Abdomen/Pelvis CT 03/17/19 00:01 IMPRESSION: 1. Moderate to large amount of ascites throughout the abdomen and pelvis with some peritoneal thickening and enhancement in the pelvis raising question of peritonitis, consider correlation with paracentesis. 2. Partially imaged likely subcarinal adenopathy with pericardial and peridiaphragmatic adenopathy with abnormal appearance of the liver as above concerning for malignancy. If not previously performed consider liver protocol MRI with and without contrast. 3. Splenomegaly. 4. Cholelithiasis. Chest X-Ray 03/17/19 10:45 IMPRESSION: STABLE APPEARANCE OF THE CHEST. SUPPORT DEVICES UNCHANGED. Paracentesis Ultrasound 03/18/19 00:00 IMPRESSION: Successful ultrasound-guided diagnostic paracentesis. Assessment & Plan - Diagnosis (1) Abdominal pain Qualifiers: Abdominal location: lower abdomen, unspecified Qualified Code(s): R10.30 - Lower abdominal pain, unspecified Is this a current diagnosis for this admission?: Yes Plan: Th patient presented with abdominal pain to the ED. It is feeling better since her paracentesis. The patient was able to eat after the procedure 03/19 Abdomen continues to feel opretty well (2) Primary sclerosing cholangitis Is this a current diagnosis for this admission?: Yes Plan: There is no special treatment plan for this disorder presently (3) Sepsis Qualifiers: Sepsis type: sepsis due to unspecified organism Sepsis acute organ dysfunction status: with acute organ dysfunction Hepatic coma status: without hepatic coma Is this a current diagnosis for this admission?: Yes Plan: The patient was started empirically on abx. The source of infx. is unclear. The patient has no resp. symtpoms. Blood cultures remain negative UA was unremarkable. CXR was unremarkable. Her bili and alk phos are elevated but chroinically so.. 03/19 Blood culutres and paracentesis gram stain negative. beleive we can stop Vancocin at this time (4) Anemia Qualifiers: Anemia type: bone marrow failure Is this a current diagnosis for this admission?: Yes (5) Thrombocytopenia Is this a current diagnosis for this admission?: Yes (6) Acute renal failure Is this a current diagnosis for this admission?: Yes Plan: The patient was noted to have a rise in her creatinine form just over to the 2.89 range in the past 2 days. her intake was limitied. IN addition, she had the moderate volume paracentesis although her albumin is 2.7 one wonders whether that may have caused some transient low flow. Weare going to stop the Vanco which may contibute to the renal problems and besides that cultures have been negative. we have increased thepatient's IV fluids and will monitor the output and BUN/Creat. - Time Time Spent with patient: 25-34 minutes
--- NOTE | 2019-04-21 15:13 | CRITICAL CARE ADMISSION REPORT ---
HPI Date:: 03/16/19 Reason for ICU Reason:: HYpotension, Sepsis HPI: HISTORY OF PRESENT ILLNESS: Patient is a 58-year-old female with a past medical history of primary sclerosing cholangitis and recent diverticulitis with sepsis who presents with recurrent abdominal pain with fevers and chills prior to arrival. The patient had recently had a lengthy admission at [facility] for recent diverticulitis. The patient she has had is described as s pressure and cramping. She has been nauseous but no vomting. Her bP was soft in the 90-100 systolic range on presentation She had been having low grade fevers thepast few days as well. - Diagnosis/Plan (1) Abdominal pain Qualifiers: Abdominal location: lower abdomen, unspecified Qualified Code(s): R10.30 - Lower abdominal pain, unspecified Is this a current diagnosis for this admission?: Yes Plan: There is nop signof divertculitis. There is no c;lear cut explsntion of her abdominal pain There is no evidence of bowel obstruction, no obvious tumor, no signof sadhesions or perforation, fivetcuklitis. there was a moderatle large amount of ascites noted in the abdomnen. (2) Primary sclerosing cholangitis Plan: There is no specific therpay aimed at this condition at this itime We will monitor her LFTs. (3) Sepsis Qualifiers: Sepsis type: sepsis due to unspecified organism Sepsis acute organ dysfunction status: with acute organ dysfunction Hepatic coma status: without hepatic coma Plan: Tyhenpatient had blood cultures drawmn. there was no evidence of major chest pathology, UA was negative. and CT abdomen /pelvos as snoted. Weare going to arrange dfof r a diagnostic paracentesis as well. (4) Anemia Qualifiers: (5) Thrombocytopenia Is this a current diagnosis for this admission?: Yes (6) Abnormal blood electrolyte level Is this a current diagnosis for this admission?: No Plan: Th e patient had a set of electrlytes done upon admission whic showed a very levated blood sugar of 960, sodium of 114 and potassium of 2.6. Thhe draw was repeated at a different sirte with totally different results. I believe the amari set was probably drawn above an IV fluid line and were distorted. Past Medical History Cardiac Medical History: Reports: Hyperlipidema Denies: Myocardial Infarction, Hypertension Pulmonary Medical History: Reports: None Denies: Asthma - MILD RESTRICTIVE LUNG DISEASE, Bronchitis, Chronic Obstructive Pulmonary Disease (COPD), Pneumonia EENT Medical History: Reports: None Neurological Medical History: Reports: None Denies: Seizures Endocrine Medical History: Reports: None Renal/ Medical History: Reports: None Malignancy Medical History: Reports: None GI Medical History: Reports: Cirrhosis, Gastroesophageal Reflux Disease Musculoskeltal Medical History: Reports: Arthritis - RA, OA Skin Medical History: Reports: None Psychiatric Medical History: Reports: None Hematology: Denies: Anemia Infectious Medical History: Reports: None Past Surgical History Past Surgical History: Reports: Cholecystectomy - stents in bile ducts, Hysterectomy Social/Family History - Social History Lives with: Family Smoking Status: Never Smoker Frequency of Alcohol Use: None Drugs: None - Medication/Allergies Home Medications: Acetaminophen [Tylenol 325 mg Tablet] 650 mg PO DAILYP PRN 03/17/19 Albuterol Sulfate [Ventolin 0.042% Neb 1.25 mg/3 mL Ampul] 3 ml NEB RTQ4HP PRN 03/17/19 Benzonatate [Tessalon Perle 100 mg Capsule] 100 mg PO TIDP PRN 03/17/19 Cyclobenzaprine HCl [Flexeril 5 mg Tablet] 5 mg PO QHS 03/17/19 Montelukast Sodium [Singulair 10 mg Tablet] 10 mg PO QPM 03/17/19 Nystatin [Mycostatin 500,000 Unit/5 ml Susp Udcup] 5 ml BUCCAL QID 03/17/19 Omeprazole 20 mg PO QAM 03/17/19 Ursodiol [Sherri] 250 mg PO TID 03/17/19 Allergies/Adverse Reactions: propoxyphene napsylate [From Darvocet-N 100] Allergy (Intermediate, Verified 11/29/18 18:47) metronidazole [From Flagyl] Allergy (Mild, Verified 11/29/18 18:47) nausea and headache Physical Exam Vital Signs: Temp Pulse Resp BP Pulse Ox 98.8 F 94 11 L 101/60 99 03/19/19 07:21 03/19/19 07:21 03/19/19 10:01 03/19/19 10:00 03/19/19 10:01 Intake & Output 03/18/19 03/19/19 03/20/19 06:59 06:59 06:59 Intake Total 1550 1854 1100 Output Total 100 250 200 Balance 1450 1604 900 Weight 87.5 kg 91.9 kg Weight/Height Weight 91.9 kg Height 5 ft 5 in Laboratory/Radiographs Laboratory Results: 03/19/19 03:38 03/19/19 03:38 03/18/19 03/18/19 03/18/19 10:45 10:45 10:45 WBC RBC Hgb Hct MCV MCH MCHC RDW Plt Count Seg Neutrophils % Sodium Potassium Chloride Carbon Dioxide Anion Gap BUN Creatinine Est GFR ( Amer) Glucose Calcium Total Protein Cancelled Fluid Type PERITONEAL Fluid Source ASCITES Fluid Color YELLOW Fluid Appearance CLEAR Fluid Viscosity LIQUID Fluid WBC 289 Fluid RBC 543 Fluid Total Protein 2.9 03/19/19 03/19/19 03:38 03:38 WBC 10.3 D RBC 3.06 L Hgb 8.8 L Hct 25.1 L MCV 82 MCH 28.6 MCHC 34.9 RDW 19.1 H Plt Count 117 L Seg Neutrophils % 64.1 Sodium 138.9 Potassium 4.3 Chloride 109 H Carbon Dioxide 18 L Anion Gap 12 BUN 11 Creatinine 2.82 H Est GFR ( Amer) 21 L Glucose 72 L Calcium 8.8 Total Protein Fluid Type Fluid Source Fluid Color Fluid Appearance Fluid Viscosity Fluid WBC Fluid RBC Fluid Total Protein 03/17/19 03/17/19 00:05 02:10 Troponin I Cancelled < 0.012 Impressions: Abdomen/Pelvis CT 03/17/19 00:01 IMPRESSION: 1. Moderate to large amount of ascites throughout the abdomen and pelvis with some peritoneal thickening and enhancement in the pelvis raising question of peritonitis, consider correlation with paracentesis. 2. Partially imaged likely subcarinal adenopathy with pericardial and peridiaphragmatic adenopathy with abnormal appearance of the liver as above concerning for malignancy. If not previously performed consider liver protocol MRI with and without contrast. 3. Splenomegaly. 4. Cholelithiasis. Chest X-Ray 03/17/19 10:45 IMPRESSION: STABLE APPEARANCE OF THE CHEST. SUPPORT DEVICES UNCHANGED. Paracentesis Ultrasound 03/18/19 00:00 IMPRESSION: Successful ultrasound-guided diagnostic paracentesis. Critical Time Critical Time (minutes): 50 -: The care of a critically ill patient is dynamic. This note represents a static moment in the admission process. orders and treatments may be given simulataneou sly and urgentl, and time is not benefits representative of the treatment process. This patient requires Critical Care secondary to life threating organ or limb dysfunction. Without the need for Critical Care services, the patient is at risk for increasid mortality and morbidity.
--- NOTE | 2019-04-28 10:57 | Operative Report ---
Bedside Procedure - History of Present Illness History of Present Illness: HISTORY OF PRESENT ILLNESS: Patient is a 58-year-old female with a past medical history of primary sclerosing cholangitis and recent diverticulitis with sepsis who presents with recurrent abdominal pain with fevers and chills prior to arrival. The patient had recently had a lengthy admission at [facility] for recent diverticulitis. The patient she has had is described as s pressure and cramping. She has been nauseous but no vomting. Her bP was soft in the 90-100 systolic range on presentation She had been having low grade fevers thepast few days as well. Indication for Procedure: Poor IV access Date: 03/20/19 Surgeon: TRACEY LEMUS - Central Line Right Internal jugular Time completed: 15:00 Consent obtained: Yes Central line pre-insertion: Sterile PPE donned, Chloraprep applied Central line lumen type: Triple Anesthetic type: 2% Lidocaine mL's of anesthesia: 3 Ultrasound guided: Yes Line secured with sutures: Yes Central line post-insertion: Blood return from lumens, Sutured, Sterile dressing applied, Position confirmed w/ CXR Number of attempts: 1 Complications: No
== END 2019-03-21 00:45 | disposition short-term general hospital (02) | DRG 871 ==
LOC: ER 23:35 → EH 03-17 09:16 → ICU 03-17 12:29 → 4N 03-19 13:34 → ICU 03-20 16:57
PROVIDERS: ADMIT Internal Medicine; ATTEND Internal Medicine
PROC: 0W9G3ZZ Drainage of Peritoneal Cavity, Percutaneous Approach (ICD-10-PCS; 2019-03-18)
PROC: 30233K1 Transfusion of Nonautologous Frozen Plasma into Peripheral Vein, Percutaneous Approach (ICD-10-PCS; principal; 2019-03-20)
PROC: 30233N1 Transfusion of Nonautologous Red Blood Cells into Peripheral Vein, Percutaneous Approach (ICD-10-PCS; 2019-03-20)
PROC: 30233R1 Transfusion of Nonautologous Platelets into Peripheral Vein, Percutaneous Approach (ICD-10-PCS; 2019-03-20)
PROC: 0BH17EZ Insertion of Endotracheal Airway into Trachea, Via Natural or Artificial Opening (ICD-10-PCS; 2019-03-20)
PROC: 5A1935Z Respiratory Ventilation, Less than 24 Consecutive Hours (ICD-10-PCS; 2019-03-20)
PROC: 02HV33Z Insertion of Infusion Device into Superior Vena Cava, Percutaneous Approach (ICD-10-PCS; 2019-03-20)
DX: A41.9 Sepsis, unspecified organism (principal); K76.7 Hepatorenal syndrome; N17.0 Acute kidney failure with tubular necrosis; K83.09 Other cholangitis; K92.2 Gastrointestinal hemorrhage, unspecified; E87.1 Hypo-osmolality and hyponatremia; E87.2 Acidosis; R18.8 Other ascites; D68.9 Coagulation defect, unspecified; R65.20 Severe sepsis without septic shock; D69.6 Thrombocytopenia, unspecified; K72.90 Hepatic failure, unspecified without coma; E16.2 Hypoglycemia, unspecified; E87.5 Hyperkalemia; E83.51 Hypocalcemia; E78.5 Hyperlipidemia, unspecified; K74.60 Unspecified cirrhosis of liver; M06.9 Rheumatoid arthritis, unspecified; M19.90 Unspecified osteoarthritis, unspecified site; K21.9 Gastro-esophageal reflux disease without esophagitis; Z96.89 Presence of other specified functional implants; T36.95XA Adverse effect of unspecified systemic antibiotic, initial encounter; D64.9 Anemia, unspecified; Z90.49 Acquired absence of other specified parts of digestive tract; Z82.49 Family history of ischemic heart disease and other diseases of the circulatory system
CPT/HCPCS: 36415; 36430; 49083; 71045; 74177; 76700; 80048; 80053; 80202; 81001; 82140; 82550; 82570; 82803; 82945; 82962; 83605; 83615; 83735; 84157; 84300; 84484; 85025; 85384; 85610; 85730; 86850; 86900; 86901; 86920; 87040; 87070; 87075; 87086; 87205; 87324; 87449; 89050; 89190; 93005; 93010; 94002; 94003; 96361; 96365; 96367; 99285; C1751; J1170; J2250; J2310; J2354; J2370; J2543; J2597; J2704; J3370; J3430; J3490; J7030; J7040; J7042; J7050; J7060; J7120; P9016; P9017; P9047